=== PATIENT | male | born 1960 | race Two or more races ===

== ENCOUNTER → 2020-10-13 13:15 | Outpatient (BNVA) | payer OTHER, SELFPAY | PROVIDERS: PCP Internal Medicine; Referring Provider Internal Medicine; Visit Provider Internal Medicine Gastroenterology ==

== ENCOUNTER 2020-11-04 09:37 | Day surgery (SDC) | payer OTHER, SELFPAY ==
[2020-11-04 09:42] VITALS: BP 139/88; PULSE 67; RESP 18; TEMP 36.1; O2SAT 98; BMI 27.8
--- NOTE | 2020-11-04 09:46 | P.HPSUR_ITS ---
Pre-Procedural Eval Section B Chief Complaint: dysphagia Relevant Social History: Other (specify) (THC) Present Medications: see Short Stay Collaborative assessment Medical History: Significant History (hypothyroidism, HTN) History of Previous Operations: Relevant previous surgery/procedure and date(s) Allergies: Allergies Allergy/AdvReac Type Severity Reaction Status Date / Time No Known Allergies Allergy Verified 10/13/20 13:16 Review of Systems Sugical H&P ROS: Negative: Constitution, Cardiovascular, Respiratory, Neurological, Psychiatric, Hem-Onc, Allergic/Immunologic, Gastrointestinal, Genitourinary, Musculoskeletal, Integumentary, Endocrine and Eyes/Ears/Nose/Throat Exam Surgical H&P Exam: Normal: HEENT, Normal: Heart, Normal: Lungs, Normal: Extrem ities, Normal: Abdomen, Normal: Skin and Normal: Neurological Plan Diagnosis/Plan: Unchanged I have reviewed the history and physical and performed a pertinent physical examination on my patient. No changes have occurred unless specified.
--- NOTE | 2020-11-04 10:11 | HO.ANESPROP2 ---
[facility] Active Problems Active Problems: All Active Problems (Updated 11/03/20 @ 13:00 by Beverley Cruz RN) Dysphagia (Acute) Past Medical History Medical History (Updated 11/03/20 @ 13:00 by Beverley Cruz RN) HTN (hypertension) Thyroid disease Family History Family History (Updated 10/13/20 @ 13:21 by Sera Navarro CMA) Father Hx of ovarian cancer Mother Family history of high blood pressure Family history of Alzheimer's disease Surgical History Surgical History (Updated 10/13/20 @ 13:19 by Srea Navarro CMA) History of colonoscopy Hx of endoscopy Social History Social History (Updated 10/13/20 @ 13:21 by Sera Navarro CMA) Alcohol intake: current Alcohol intake frequency: holidays/special occasions only Smoking Status: Never smoker Use of substances other than those prescribed or required for medical reasons: Yes Substance Use Type: Marijuana Substance Use Frequency: Monthly Have you been hit, kicked, punched, or otherwise hurt by someone within the past year? If so, by whom?: No Advance Directives: No Advance Directives Information Provided: Yes Recently lost weight without trying: No Meds Allergies Allergy/AdvReac Type Severity Reaction Status Date / Time No Known Allergies Allergy Verified 10/13/20 13:16 Active Medications: Current Medications Generic Name Dose Route Start Last Admin Trade Name Freq PRN Reason Stop Dose Admin Ondansetron HCl 4 mg 11/04/20 09:45 Ondansetron Hcl 4 Mg/2 Ml Vial IVPUSH ONCE PRN Nausea and Vomiting Home Medications Medication Instructions Recorded Confirmed Last Taken Type amlodipine 5 mg tablet 5 mg PO DAILY 10/13/20 Unknown History levothyroxine 125 mcg tablet 125 mcg PO DAILY 10/13/20 Unknown History lisinopril 5 mg tablet 5 mg PO DAILY 10/13/20 Unknown History omeprazole 20 mg capsule,delayed 20 mg PO DAILY 10/13/20 Unknown History release Exam Exam Date and Time: November 04, 2020 1011 Height,Weight and Vital Signs: Height 5 ft 11 in Weight 90.718 kg Last Vital Signs Temp 97 F 11/04/20 09:42 Pulse 67 11/04/20 09:42 Resp 18 11/04/20 09:42 BP 139/88 11/04/20 09:42 Pulse Ox 98 11/04/20 09:42 Airway Mallampati Class: II (Missing 2 pn the side) TM Dist: >3cm Neck ROM: Full Heart: RRR Lungs: CTA BL Assessment and Plan Assessment Anesthesia Assessment: Anesthesia Plan Discussed and Chart Reviewed Final Anesthetic Review NPO: Yes ASA Class: II Final Preanesthetic Review: No Changes in Pt Med Stat and Consent Obtained/Reviewed Patient Risk: Intermediate Procedure Risk: Intermediate Anesthetic Plan Anesthetic Plan: MAC: Disposition: Standard PACU
--- NOTE | 2020-11-04 10:39 | PM.OP ---
Brief Operative Note Date of Service: 11/04/20 Pre-op diagnosis: dysphagia Post-op diagnosis: same Procedure: see op note Surgeon: Merced Flores MD Anesthesia: MAC Estimated blood loss (mL): 0 Condition: stable Disposition: PACU
--- NOTE | 2020-11-04 10:39 | W.PM.OPN ---
Operative Note Operative Note Date of Service: 11/04/20 Narrative: Procedure Description: EGD FLEXIBLE TRANSORAL UPPER GASTROINTESTINAL ENDOSCOPY UPPER ENDOSCOPY Consent: Indications for the procedure and potential complications of bleeding, perforation, reaction to medications and missed diagnosis were discussed with the patient and informed consent was obtained. Instrument: Olympus GIF H 190 J mid size upper endoscope Monitoring: Vital signs and clinical assessment, continuous EKG monitoring, Pulse oximetry, Carbon Dioxide monitoring and blood pressure monitoring were done throughout the procedure. Procedure: The patient was placed in the left lateral decubitis position and pre-procedure medications were administered and a bite block was placed. The endoscope was inserted into the mouth and advanced under direct vision to the third part of duodenum. A careful inspection was made as the upper endoscope was withdrawn including a retroflexed examination of the proximal stomach; Findings and interventions are described below. Findings: Larynx:normal Esophagus: GE junction at 40 cm, diaphragm hiatus at 43 cm, Thick fibrous schatzki ring noted at GEJ with some erosive esophagitis, LA grade B. 18 mm balloon used to stretch with disruption noted, balloon then stretched at UES to 15 mm when resistance felt. 3 cm sliding hiatal hernia noted. Bx taken from GEJ, distal and proximal esophagus in separate jars. Stomach: Patchy gastric erythema. Biopsies were obtained. Grade 2 flap valve on retroflexed examination of the cardia. Duodenum: Normal bulb and descending duodenum, Intervention: Biopsies as noted above, balloon dilation Impression/Findings: hiatal hernia esophagitis schatzki ring and stricture PLAN: high dose PPI for 3 months then can titrate down, may need further dilation in future, will send 2 weeks of carafate as well soft diet today and can advance as tolerated tomorrow can take tylenol for pain if needed
[2020-11-04 10:45] VITALS: BP 131/75; PULSE 88; RESP 16; TEMP 36.6; O2SAT 98
[2020-11-04 11:00] VITALS: BP 133/85; PULSE 79; RESP 16; TEMP 36.4; O2SAT 93
--- NOTE | 2020-11-04 12:11 | HO.POSTANES ---
Post Anesthesia Evaluation Post Anesthesia Evaluation Vital Signs: Vital Signs Temp Pulse Resp BP Pulse Ox 11/04/20 11:00 97.5 F 79 16 133/85 93 11/04/20 10:45 97.9 F 88 16 131/75 98 11/04/20 09:42 97 F 67 18 139/88 98 Anesthesia: Monitored Mental Status: Awake Pain Control: Satisfactory Nausea/Vomiting: None Hydration: Adequate Anesthesia-Related Issues: No Anes. Related Issues
== END 2020-11-04 11:40 | disposition home or self-care (01) ==
PROVIDERS: PCP Internal Medicine; Visit Provider Internal Medicine Gastroenterology
PROC: 0DJ08ZZ Inspection of Upper Intestinal Tract, Via Natural or Artificial Opening Endoscopic (ICD-10-PCS; CPT 43235; principal; 2020-11-04 10:50)
DX: K22.2 Esophageal obstruction (principal); K22.10 Ulcer of esophagus without bleeding; K44.9 Diaphragmatic hernia without obstruction or gangrene; I10 Essential (primary) hypertension; Z79.899 Other long term (current) drug therapy
CPT/HCPCS: 43249; 43239; 88305; 88342; C1726

== ENCOUNTER → 2020-12-29 10:35 | Outpatient (BNVA) | payer OTHER, SELFPAY | PROVIDERS: PCP Internal Medicine; Visit Provider Internal Medicine Gastroenterology ==

== ENCOUNTER → 2021-04-09 08:59 | Outpatient (BNVA) | payer OTHER, SELFPAY | PROVIDERS: PCP Internal Medicine; Referring Provider Internal Medicine; Visit Provider Surgery ==

== ENCOUNTER 2021-04-19 09:08 | Day surgery (SDC) | payer OTHER, SELFPAY ==
--- NOTE | 2021-04-16 09:11 | P.CONAN_ITS ---
Documented by User: Alycia Mccracken 04/16/21 09:13 HPI - Anesthesia Eval Consult details Narrative: 60yo M for Right Hernia Repair Inguinal and Excision of Groin Lipoma PMFSH Active Problems Active Problems: All Active Problems (Updated 04/09/21 @ 10:33 by Karel Beavers MD) Right inguinal hernia (Acute) Dysphagia (Acute) Past Medical History Medical History (Updated 04/09/21 @ 10:33 by Karel Beavers MD) HTN (hypertension) Thyroid disease Family History Family History (Updated 04/09/21 @ 09:16 by DAMIÁN Layne) Father Throat cancer Tongue cancer Mother Family history of high blood pressure Family history of Alzheimer's disease Surgical History Surgical History (Updated 04/09/21 @ 09:15 by DAMIÁN Layne) History of bilateral knee arthroplasty History of colonoscopy Hx of endoscopy Social History Social History (Updated 04/09/21 @ 09:16 by DAMIÁN Layne) Alcohol intake: current Alcohol intake frequency: holidays/special occasions only Patient Tobacco Use Status: Former Tobacco user Tobacco use type: Cigarette Smoked in Last 30 Days: No Use of substances other than those prescribed or required for medical reasons: Yes Substance Use Type: Marijuana Are you DNR?: No Advance Directives: No Advance Directives Information Provided: Yes Recently lost weight without trying: No Nutrition Risks: No Nutritional Risk Meds Allergies Allergy/AdvReac Type Severity Reaction Status Date / Time No Known Allergies Allergy Verified 12/29/20 10:35 Home Medications Medication Instructions Recorded Confirmed Last Taken Type amlodipine 5 mg tablet 5 mg PO DAILY 10/13/20 04/09/21 Unknown History levothyroxine 125 mcg tablet 125 mcg PO DAILY 10/13/20 04/09/21 Unknown History lisinopril 5 mg tablet 5 mg PO DAILY 10/13/20 04/09/21 Unknown History diclofenac sodium 50 mg mg PO 12/29/20 04/09/21 Unknown History tablet,delayed release Exam Exam Date and Time: April 16, 2021 0911 Assessment and Plan Assessment Anesthesia Assessment: Chart Reviewed Documented by User: Mina Bansal MD 04/19/21 11:21 [facility] Past Medical History Medical History (Updated 04/09/21 @ 10:33 by Karel Beavers MD) HTN (hypertension) Thyroid disease Family History Family History (Updated 04/09/21 @ 09:16 by DAMIÁN Layne) Father Throat cancer Tongue cancer Mother Family history of high blood pressure Family history of Alzheimer's disease Surgical History Surgical History (Updated 04/09/21 @ 09:15 by DAMIÁN Layne) History of bilateral knee arthroplasty History of colonoscopy Hx of endoscopy History of Problems with Anesthesia: No Social History Social History (Updated 04/09/21 @ 09:16 by DAMIÁN Layne) Alcohol intake: current Alcohol intake frequency: holidays/special occasions only Patient Tobacco Use Status: Former Tobacco user Tobacco use type: Cigarette Smoked in Last 30 Days: No Use of substances other than those prescribed or required for medical reasons: Yes Substance Use Type: Marijuana Are you DNR?: No Advance Directives: No Advance Directives Information Provided: Yes Recently lost weight without trying: No Nutrition Risks: No Nutritional Risk Meds Allergies Allergy/AdvReac Type Severity Reaction Status Date / Time No Known Allergies Allergy Verified 12/29/20 10:35 Home Medications Medication Instructions Recorded Confirmed Last Taken Type amlodipine 5 mg tablet 5 mg PO DAILY 10/13/20 04/09/21 Unknown History levothyroxine 125 mcg tablet 125 mcg PO DAILY 10/13/20 04/09/21 Unknown History lisinopril 5 mg tablet 5 mg PO DAILY 10/13/20 04/09/21 Unknown History diclofenac sodium 50 mg mg PO 12/29/20 04/09/21 Unknown History tablet,delayed release Exam Airway Mallampati Class: I TM Dist: >3cm Neck ROM: Full Loose/Missing/Broken Teeth: No Heart: ok Lungs: ok Assessment and Plan Assessment Anesthesia Assessment: Anesthesia Plan Discussed and Chart Reviewed Final Anesthetic Review NPO: Yes ASA Class: II Final Preanesthetic Review: No Changes in Pt Med Stat, Meds/Allgs Chart Reviewed, Consent Obtained/Reviewed and Anes Risks/Benef Reviewed Patient Risk: Low Procedure Risk: Low Anesthetic Plan Anesthetic Plan: GA and Agree w/ Assess. and Plan Disposition: Standard PACU
[2021-04-19] VITALS (9 sets, daily range): BP systolic 94–141; BP diastolic 44–89; PULSE 61–76; RESP 14–17; TEMP 36.2–36.5; O2SAT 95–99; BMI 28.4
[2021-04-19] MEDS: Lactated Ringers 1,000 ML 50 ML IVCONT (10:11)
--- NOTE | 2021-04-19 11:23 | MHC.SHP ---
Pre-Procedural Eval Section A Date of Service: 04/19/21 The patient is an INPATIENT: No Changes since office visit: Yes Patient answered all questions; No Cold of Flu in the past 2 weeks, No New Medical Problems and No Changes in Medication The History & Physical has been completed within 30 days and I have reviewed it.: Yes Section B Chief Complaint: Benign lipomatous neoplasm, Right inguinal hernia Allergies: Allergies Allergy/AdvReac Type Severity Reaction Status Date / Time No Known Allergies Allergy Verified 12/29/20 10:35 Plan Diagnosis/Plan: Unchanged I have reviewed the history and physical and performed a pertinent physical examination on my patient. No changes have occurred unless specified.
--- NOTE | 2021-04-19 12:37 | W.PM.OPN ---
Operative Note Operative Note Date of Service: 04/19/21 Narrative: Preoperative diagnosis: Right inguinal hernia, large right groin lipoma Postoperative diagnosis: Same Procedure: Repair of right inguinal hernia, excision of large right groin lipoma Surgeon: Karel Beavers MD Fiber Optics Engineer: Carlie Galdamez PA-C Anesthesia: General LMA Indications for procedure: 60-year-old male patient presenting with a painful lump in the right groin which increases in size with lifting and straining. He has associated gurgling when the lump is extended. He is able to reduce the lump with light pressure. On examination there is a reducible right inguinal hernia which increases in size with Valsalva maneuvers. There is some tenderness to palpation. Just below this is a large soft tissue mass in the upper right leg just below the groin. This is soft and mobile within the subcutaneous tissue and is suggestive of a large lipoma measuring at least 12 cm in diameter. Operative findings:. Patient was found to have an indirect right inguinal hernia without evidence of incarceration. This was repaired using a large PHS mesh. In addition the patient had a large lipoma in the right upper extremity extending into the right groin measuring at least 12 cm in diameter. Specimen: Hernia sac, lipoma right groin Estimated blood loss: 10 mL Complications: None Procedure details: Patient was brought to the OR and placed in a supine position. After administering general anesthesia the patient's abdomen was prepped with ChloraPrep and draped in a sterile fashion. A surgical time-out was called the consent confirmed. Patient received preoperative antibiotics and Venodyne boots were in place. Local anesthesia consisting of 0.5% Sensorcaine with epinephrine was infiltrated over the right inguinal ligament. Incision was then made in oblique fashion over the inguinal ligament. This carried out through subcutaneous tissue past Juan's fashion up to the external oblique aponeurosis. Additional local was infiltrated below the external oblique aponeurosis. This was then incised with a scalpel wide with the Metzenbaum scissors. Spermatic cord was then dissected free from the surrounding inguinal canal and retracted using a Derrick drain. The floor of the inguinal canal was examined and no direct hernia was identified. Fibers of the cremasteric muscle were then and an indirect sac was identified. This was dissected down to the internal ring. The sac was then opened and the contents reduced. The sac was then closed using a 0 Polysorb suture and excise above this. This was sent to the specimen. The sac was then reduced into the abdominal cavity and plicated to the internal oblique aponeurosis using the same suture with a free needle. A preperitoneal space was then created through the internal ring using blunt dissection and an open Ray-Omar sponge. A large PHS mesh was then obtained. The circular underlay was placed into the preperitoneal space and deployed. The overlay was then secured to the pubic tubercle, conjoined tendon, and shelving edge of the inguinal ligament using interrupted 0 Polysorb sutures. A slit was made in the mesh and the mesh were wrapped around the spermatic cord at the internal ring. This was then secured to the shelving edge of the inguinal ligament using the 0 Polysorb suture. This was felt to be loose enough to allow the tip of an index finger to pass. Wounds were checked for hemostasis. Attention was then directed to the right upper thigh or a large lipoma was identified as noted above. Incision was made directly over the lipoma carried out through subcutaneous tissue up to the lipoma. Combination of sharp and blunt dissection was then you to dissect the large lipoma from the surrounding subcutaneous tissue. An extension was noted to extend above the inguinal crease into the right groin. The entire lipoma measured approximately 12 cm in diameter. This was sent to pathology for examination. Wounds were irrigated with saline solution and suctioned dry. External oblique aponeurosis was then closed using a running 2 0 Polysorb suture. Juan's fascia and dermis reapproximated using interrupted 3-0 Polysorb sutures. Skin was then closed using a running subcuticular 4-0 Polysorb suture. Steri-Strips 2 x 2 gauze and Tegaderm were then applied. The patient tolerated the procedure well. Sponge, instrument, needle counts reported as correct. Patient was transferred to PACU in stable condition.
[2021-04-19] MEDS: Acetaminophen 325 MG TABLET 650 MG PO (12:58)
[2021-04-19] MEDS: oxyCODONE HCl Immed Release 5 MG TABLET 10 MG PO (12:59)
== END 2021-04-19 12:45 | disposition home or self-care (01) ==
PROVIDERS: PCP Internal Medicine; Visit Provider Surgery
PROC: (CPT 49505; principal; 2021-04-19 10:40)
DX: K40.90 Unilateral inguinal hernia, without obstruction or gangrene, not specified as recurrent (principal); D17.23 Benign lipomatous neoplasm of skin and subcutaneous tissue of right leg; I10 Essential (primary) hypertension; Z87.891 Personal history of nicotine dependence; F12.90 Cannabis use, unspecified, uncomplicated; Z79.899 Other long term (current) drug therapy
CPT/HCPCS: 49505; 27337; 88302; 88304; C1781; J0690; J1100; J1885; J2405; J3010

== ENCOUNTER → 2021-04-27 13:49 | Outpatient (BNVA) | payer OTHER, SELFPAY | PROVIDERS: PCP Internal Medicine; Referring Provider Internal Medicine; Visit Provider Surgery ==

== ENCOUNTER → 2021-05-11 14:53 | Outpatient (BNVA) | payer OTHER, SELFPAY | PROVIDERS: PCP Internal Medicine; Visit Provider Surgery ==

== ENCOUNTER 2021-06-15 09:50 | Outpatient (REF) | payer OTHER, SELFPAY ==
[2021-06-15 10:40] LABS: MANUAL DIFF FLAG NO
[2021-06-15 10:53] LABS: Basophils Absolute Auto 0.1 X10*3/uL (0.0-0.2); Basophils Percent Auto 0.7 % (0-2); Eosinophils Absolute Auto 0.2 X10*3/uL (0.0-0.4); Eosinophils Percent Auto 2.4 % (0-4); Hematocrit 48.2 % (42-52); Hemoglobin 15.5 g/dl (14.0-18.0); Imm Gran Abs Auto 0.03 X10*3/uL (0.00-0.03); Imm Gran Pct Auto 0.4 % (0.0-0.4); Lymphocytes Absolute Auto 1.7 X10*3/uL (1.2-4.9); Lymphocytes Percent Auto 23.9 % (20-40); Mean Corpuscular HGB Conc 32.2 g/dl (31.0-36.0); Mean Corpuscular Hemoglobin 29.2 pg (27.0-33.0); Mean Corpuscular Volume 90.9 fL (80-98); Mean Platelet Volume 9.9 fL (9.4-12.4); Monocytes Absolute Auto 0.7 X10*3/uL (0.1-1.2); Neutrophils Absolute Auto 4.4 X10*3/uL (2.0-8.3); Neutrophils Percent Auto 62.6 % (45-73); Platelet Count 309 X10*3/uL (160-400); Red Cell Distribution Width 13.5 % (11.0-16.0)
[2021-06-15 11:10] LABS: Alanine Aminotransferase 20 U/L (0-40); Albumin Level 4.4 g/dL (3.5-5.0); Alkaline Phosphatase 86 U/L (39-117); Anion Gap 12 (12-20); Aspartate Amino Transferase 18 U/L (5-37); Blood Urea Nitrogen 20 mg/dL (9-16); Calcium 9.7 mg/dL (8.4-10.2); Carbon Dioxide 27 mmol/L (22-29); Chloride 106 mmol/L (96-108); Cholesterol 163 mg/dL; Estimated Glomerular Filt Rate > 60; Glucose Fasting 92 mg/dL (60-99); HDL Cholesterol 39 mg/dL; LDL Cholesterol Calculated 110 mg/dl; Potassium 4.9 mmol/L (3.3-5.1); Sodium 140 mmol/L (135-145); Total Protein 7.6 g/dL (6.5-8.0); Triglycerides 73 mg/dL
[2021-06-15 11:30] LABS: Free T4 (Free Thyroxine) 1.11 ng/dL (0.71-1.85); Prostate Specific Antigen 0.47 ng/mL (<0.05-4.0); Vitamin D 25-OH Total 29.8 ng/mL (>30)
[2021-06-15 11:52] LABS: Appearance Urine CLEAR; Color Urine YELLOW; Glucose Urine UA NEG (NEG); Leukocyte Esterase Urine NEG (NEG); Nitrite Urine NEG (NEG); PH 6.5 (5.0-8.0); Urine Blood NEG (NEG); Urine Ketones NEG (NEG); Urine Protein NEG (NEG-TRACE)
== END 2021-06-15 09:51 | disposition home or self-care (01) ==
LOC: HO.LAB 09:50
PROVIDERS: PCP Internal Medicine; Visit Provider Internal Medicine
DX: Z12.5 Encounter for screening for malignant neoplasm of prostate (principal); E78.00 Pure hypercholesterolemia, unspecified; E03.9 Hypothyroidism, unspecified; I10 Essential (primary) hypertension; E55.9 Vitamin D deficiency, unspecified; N40.0 Benign prostatic hyperplasia without lower urinary tract symptoms
CPT/HCPCS: 36415; 80053; 80061; 81003; 82306; 84153; 84439; 84443; 85025

== ENCOUNTER → 2021-06-29 13:48 | Outpatient (BNVA) | payer OTHER, SELFPAY | PROVIDERS: PCP Internal Medicine; Visit Provider Nurse Practitioner Family ==

== ENCOUNTER → 2021-07-06 11:32 | Outpatient (BNVA) | payer OTHER, SELFPAY | PROVIDERS: PCP Internal Medicine; Referring Provider Internal Medicine; Visit Provider Internal Medicine Gastroenterology ==

== ENCOUNTER → 2021-07-07 14:09 | Outpatient (BNVA) | payer OTHER, SELFPAY | PROVIDERS: PCP Internal Medicine; Visit Provider Nurse Practitioner Family ==

== ENCOUNTER 2021-08-03 06:27 | Outpatient (REF) | payer OTHER, SELFPAY ==
--- NOTE | ~2021-08-03 | FL_ITS ---
EXAMINATION: XR FLUOROSCOPY WITH IMAGES CLINICAL INFORMATION: History of pain, sacrococcygeal disorder. COMPARISON: None. TECHNIQUE: Fluoroscopy performed by Dr. Clark. Fluoroscopy time: 0.1 minutes DAP: 1.07 Gycm2 Images: 1 fluoro image is saved. FL/FL guidance in treatment room FINDINGS AND IMPRESSION: Fluoroscopic imaging guidance was needed. The tip of a needle overlies the inferior right sacroiliac joint and there has been injection of iodinated contrast into the joint. Please refer to the procedure report.
== END 2021-08-03 06:28 | disposition home or self-care (01) ==
LOC: HO.RADIR 06:27
PROVIDERS: Visit Provider Anesthesiology
DX: M53.3 Sacrococcygeal disorders, not elsewhere classified (principal)
CPT/HCPCS: Q9967

== ENCOUNTER → 2021-08-10 09:12 | Outpatient (BNVA) | payer OTHER, SELFPAY | PROVIDERS: PCP Internal Medicine; Visit Provider Nurse Practitioner Family ==

== ENCOUNTER → 2021-11-03 10:36 | Outpatient (BNVA) | payer OTHER, SELFPAY | PROVIDERS: PCP Internal Medicine; Visit Provider Nurse Practitioner Family ==

== ENCOUNTER 2021-12-28 10:30 | Outpatient (RCR) | payer OTHER, SELFPAY ==
--- NOTE | 2021-12-21 13:11 | MHC.PT.EP ---
[facility] [place] Office [place] Office [place] Office [address] [place] [address] [phone] F: [phone] F: [phone] F: [phone] F: [phone] Physical Therapy Plan of Care Date of Evaluation: 12/21/21 Date of Surgery: Diagnosis: vertigo Assessment: The patient arrived reporting dizziness with position change. He was positive for positional vertigo on the left side. His left Posterior canal was indicated for BPPV. He had upbeating torsional nystagmus with latency. He is a good candidate for skilled PT for Vestibular Rehabilitation. I will assess his balance after his BPPV is resolved. Frequency and Duration: The patient will be seen 2x/week x 4 weeks. Short Term Goals: 1. The patient to be able to negotiate community obstacles such as curbs, ramps and open spaces without LOB for 100 feet. 2. For the patient to be able to functionally move in all planes and directions without provocation of dizziness to show return to PLOF. 3. Pt to be negative for nystagmus in all diagnostic positions for BPPV to facilitate improved functional movements. Hand Flatwork Finisher Goals: 1. For the patient to be negative for nystagmus or reports of vertigo in all diagnostic positions bilaterally to resolution of BPPV in 4 weeks. 2. For the patient to be able to functionally move in all planes and directions without provocation of dizziness to show return to PLOF. 3.For the patient to be educated on symptoms and indications to return to therapy when needed in 4 weeks. Treatment Plan: Modalities to reduce pain, spasms and effusion. Manual therapy to restore motion and function. Therapeutic exercise to improve strength and flexibility. Neuromuscular re-education for posture and balance. Therapeutic activities to return to functional activities of daily living. Electronically signed by: Krissy Davenport PT DPT Please sign and return to therapist. Thank you for your referral.
--- NOTE | 2021-12-28 10:59 | MHC.PT.DC ---
[facility] [place] Office [place] Office [place] Office [address] [place] [address] [phone] F: [phone] F: [phone] F: [phone] F: [phone] Physical Therapy Discharge Report Diagnosis: vertigo Date of Surgery: Date of Evaluation: 12/21/21 Date of Discharge: 12/28/21 Treatments to Date: 2 Cancellations to Date: No Shows to Date: Discharge Status: Achieved Goals Improved Function Independent with HEP Discharge Summary: Pt was negative for BPPV bilaterally. Pt had a normal VOR, and pt had normal balance. Electronically signed by: Krissy Davenport PT DPT Please sign and return to therapist. Thank you for your referral.
== END 2022-04-01 10:51 | disposition home or self-care (01) ==
LOC: HO.PT 10:30
PROVIDERS: PCP Internal Medicine; Visit Provider Otolaryngology
DX: H81.10 Benign paroxysmal vertigo, unspecified ear (principal)
CPT/HCPCS: 95992; 97112; 97162

== ENCOUNTER 2022-03-10 06:28 | Outpatient (REF) | payer OTHER, SELFPAY ==
--- NOTE | ~2022-03-10 | XR_ITS ---
EXAMINATION: XR KNEES, STANDING AP XR KNEE, RIGHT CLINICAL INFORMATION: Knee pain COMPARISON: Radiographs right knee 09/24/2018. TECHNIQUE: Standing AP view of both knees is performed along with lateral and axial patella views of the right knee. FINDINGS: Right: No fracture, dislocation, destructive process, or definite effusion. Hoffa's fat pad appears normal. Normal bony mineralization. Moderate narrowing medial knee joint compartment is present with marginal osteophytes medial femoral condyle, medial tibial plateau, and small central osteophyte medial femoral condyle. No erosive change or chondrocalcinosis. Mild narrowing lateral patellofemoral joint. There is spurring at the quadriceps insertion patella. Left: Normal bony mineralization. No fracture or dislocation or destructive process. Mild narrowing medial compartment with borderline central osteophyte medial femoral condyle. No erosive change or chondrocalcinosis. XR/XR knee RT 2V IMPRESSION: Right: -Moderate narrowing medial knee joint compartment with mild osteophytes. No erosive change. -Narrowing lateral patellofemoral joint. Spurring quadriceps insertion patella. Left: -Mild narrowing medial compartment. No erosive change.
--- NOTE | ~2022-03-10 | XR_ITS ---
EXAMINATION: XR KNEES, STANDING AP XR KNEE, RIGHT CLINICAL INFORMATION: Knee pain COMPARISON: Radiographs right knee 09/24/2018. TECHNIQUE: Standing AP view of both knees is performed along with lateral and axial patella views of the right knee. FINDINGS: Right: No fracture, dislocation, destructive process, or definite effusion. Hoffa's fat pad appears normal. Normal bony mineralization. Moderate narrowing medial knee joint compartment is present with marginal osteophytes medial femoral condyle, medial tibial plateau, and small central osteophyte medial femoral condyle. No erosive change or chondrocalcinosis. Mild narrowing lateral patellofemoral joint. There is spurring at the quadriceps insertion patella. Left: Normal bony mineralization. No fracture or dislocation or destructive process. Mild narrowing medial compartment with borderline central osteophyte medial femoral condyle. No erosive change or chondrocalcinosis. XR/XR knee standing BI IMPRESSION: Right: -Moderate narrowing medial knee joint compartment with mild osteophytes. No erosive change. -Narrowing lateral patellofemoral joint. Spurring quadriceps insertion patella. Left: -Mild narrowing medial compartment. No erosive change.
== END 2022-03-10 06:29 | disposition home or self-care (01) ==
LOC: HO.HOSX 06:28
PROVIDERS: Visit Provider Orthopaedic Surgery
DX: M25.569 Pain in unspecified knee (principal)
CPT/HCPCS: 73560; 73565

== ENCOUNTER 2022-05-19 10:03 | Outpatient (REF) | payer OTHER, SELFPAY ==
[2022-05-19 10:18] LABS: MANUAL DIFF FLAG NO
[2022-05-19 10:46] LABS: Basophils Absolute Auto 0.1 X10*3/uL (0.0-0.2); Basophils Percent Auto 0.7 % (0-2); Eosinophils Absolute Auto 0.2 X10*3/uL (0.0-0.4); Eosinophils Percent Auto 2.5 % (0-4); Hematocrit 47.7 % (42.0-52.0); Hemoglobin 15.7 g/dl (14.0-18.0); Imm Gran Abs Auto 0.03 X10*3/uL (0.00-0.03); Imm Gran Pct Auto 0.4 % (0.0-0.4); Lymphocytes Absolute Auto 2.1 X10*3/uL (1.2-4.9); Lymphocytes Percent Auto 26.8 % (20-40); Mean Corpuscular HGB Conc 32.9 g/dl (31.0-36.0); Mean Corpuscular Hemoglobin 29.5 pg (27.0-33.0); Mean Corpuscular Volume 89.5 fL (80.0-98.0); Mean Platelet Volume 9.8 fL (9.4-12.4); Monocytes Absolute Auto 0.7 X10*3/uL (0.1-1.2); Monocytes Percent Auto 9.3 % (2-11); Neutrophils Absolute Auto 4.6 x10*3/uL (2.0-8.3); Neutrophils Percent Auto 60.3 % (45-73); Platelet Count 286 X10*3/uL (160-400); Red Blood Count 5.33 X10*6/uL (4.60-5.80); Red Cell Distribution Width 13.7 % (11.0-16.0); White Blood Count 7.6 X10*3/uL (4.8-10.8)
[2022-05-19 11:13] LABS: Alanine Aminotransferase 14 U/L (0-40); Albumin Level 4.2 g/dL (3.5-5.0); Alkaline Phosphatase 79 U/L (39-117); Anion Gap 14 (12-20); Aspartate Amino Transferase 16 U/L (5-37); Bilirubin Total 0.6 mg/dL (0.0-1.0); Blood Urea Nitrogen 19 mg/dL (9-16); Calcium 9.1 mg/dL (8.4-10.2); Carbon Dioxide 26 mmol/L (22-29); Chloride 105 mmol/L (96-108); Cholesterol 168 mg/dL; Estimated Glomerular Filt Rate > 60; Glucose Fasting 91 mg/dL (60-99); HDL Cholesterol 42 mg/dL; LDL Cholesterol Calculated 112 mg/dl; Potassium 4.4 mmol/L (3.3-5.1); Sodium 141 mmol/L (135-145); Total Protein 7.4 g/dL (6.5-8.0); Triglycerides 72 mg/dL
[2022-05-19 11:35] LABS: Prostate Specific Antigen 0.78 ng/mL (<0.05-4.0)
[2022-05-19 16:23] LABS: Appearance Urine Clear; Color Urine Yellow; Glucose Urine UA Negative (Negative); Leukocyte Esterase Urine Negative (Negative); Nitrite Urine Negative (Negative); Specific Gravity - Urine 1.015 (1.005-1.025); Urine Blood Negative (Negative); Urine Ketones Negative (Negative); Urine Protein Negative (Neg-Trace)
== END 2022-05-19 10:04 | disposition home or self-care (01) ==
LOC: HO.LAB 10:03
PROVIDERS: PCP Internal Medicine; Visit Provider Internal Medicine
DX: Z00.00 Encounter for general adult medical examination without abnormal findings (principal); Z12.5 Encounter for screening for malignant neoplasm of prostate; I10 Essential (primary) hypertension; E78.00 Pure hypercholesterolemia, unspecified; E03.9 Hypothyroidism, unspecified; E55.9 Vitamin D deficiency, unspecified; N40.0 Benign prostatic hyperplasia without lower urinary tract symptoms
CPT/HCPCS: 36415; 80053; 80061; 81003; 82306; 84153; 84439; 84443; 85025

== ENCOUNTER 2022-11-24 07:58 | Day surgery (SDC) | payer OTHER, SELFPAY ==
--- NOTE | 2022-11-23 13:42 | HO.ANESPROP2 ---
Documented by User: Alycia Mccracken NP 11/23/22 13:44 HPI - Anesthesia Eval Consult details Narrative: 62yo M for Upper Endoscopy with Balloon Dilitation PMFSH Active Problems Active Problems: All Active Problems (Updated 07/11/22 @ 01:08 by Branden Recinos MD) Skin lesions (Acute) History of arthroscopy of both knees (Acute) Osteoarthritis of right knee (Acute) Colon cancer screening (Acute) Annual physical exam (Acute) Right knee DJD (Acute) Benign paroxysmal vertigo (Acute) Erectile dysfunction (Acute) Sacroiliac joint pain (Acute) Overweight (BMI 25.0-29.9) (Acute) Anxiety (Acute) Erosive esophagitis (Acute) Insomnia (Acute) Lumbar degenerative disc disease (Acute) Obstructive sleep apnea (Acute) Acquired hypothyroidism (Acute) Benign essential hypertension (Acute) Right inguinal hernia (Acute) Dysphagia (Acute) Past Medical History Medical History Acquired hypothyroidism Anxiety Benign essential hypertension Erosive esophagitis HTN (hypertension) Insomnia Lumbar degenerative disc disease Obstructive sleep apnea Overweight (BMI 25.0-29.9) Thyroid disease Family History Family History Father Throat cancer Tongue cancer Mother Family history of high blood pressure Family history of Alzheimer's disease Surgical History Surgical History History of bilateral knee arthroplasty History of colonoscopy History of endoscopy Hx of endoscopy S/P right inguinal hernia repair (04/19/21) History of Problems with Anesthesia: No Social History Social History Housing: Apartment Alcohol intake: current Alcohol intake frequency: holidays/special occasions only Patient Tobacco Use Status: Former Tobacco user Quit Date: 20 years ago Tobacco use type: Cigarette e-Cigarette/Vaping Use: Never Used Second Hand Smoke Exposure: Yes Use of substances other than those prescribed or required for medical reasons: Yes Substance Use Type: Marijuana Are you DNR?: No Advance Directives: No Advance Directives Information Provided: Yes service: No Current occupational status: employed Cognitive needs: No Hearing needs: No Vision needs: Yes Meds Allergies Allergy/AdvReac Type Severity Reaction Status Date / Time No Known Allergies Allergy Verified 11/23/22 13:40 Home Medications Medication Instructions Recorded Confirmed Last Taken Type diclofenac sodium 50 mg 50 mg PO BID PRN pain 12/16/21 11/24/22 Unknown History tablet,delayed release Exam Exam Date and Time: November 23, 2022 1342 Pertinent Lab Results Pertinent Lab Results: Laboratory Tests 05/19/22 05/19/22 10:15 10:15 WBC 7.6 Hgb 15.7 Hct 47.7 Plt Count 286 Sodium 141 Potassium 4.4 Chloride 105 Carbon Dioxide 26 BUN 19 H Creatinine 0.99 Assessment and Plan Assessment Anesthesia Assessment: Chart Reviewed Final Anesthetic Review History of Problems with Anesthesia: No Documented by User: Destiny Deutsch MD 11/24/22 08:47 HPI - Anesthesia Eval Consult details Narrative: 62yo M for Upper Endoscopy with Balloon Dilitation last smoked pot yesterday. history of daily use PMFSH Past Medical History Medical History Acquired hypothyroidism Anxiety Benign essential hypertension Erosive esophagitis HTN (hypertension) Insomnia Lumbar degenerative disc disease Obstructive sleep apnea Overweight (BMI 25.0-29.9) Thyroid disease Family History Family History Father Throat cancer Tongue cancer Mother Family history of high blood pressure Family history of Alzheimer's disease Family history of problems with anesthesia: No Surgical History Surgical History History of bilateral knee arthroplasty History of colonoscopy History of endoscopy Hx of endoscopy S/P right inguinal hernia repair (04/19/21) Social History Social History Housing: Apartment Alcohol intake: current Alcohol intake frequency: holidays/special occasions only Patient Tobacco Use Status: Former Tobacco user Quit Date: 20 years ago Tobacco use type: Cigarette e-Cigarette/Vaping Use: Never Used Second Hand Smoke Exposure: Yes Use of substances other than those prescribed or required for medical reasons: Yes Substance Use Type: Marijuana Are you DNR?: No Advance Directives: No Advance Directives Information Provided: Yes service: No Current occupational status: employed Cognitive needs: No Hearing needs: No Vision needs: Yes Meds Allergies Allergy/AdvReac Type Severity Reaction Status Date / Time No Known Allergies Allergy Verified 11/23/22 13:40 Home Medications Medication Instructions Recorded Confirmed Last Taken Type diclofenac sodium 50 mg 50 mg PO BID PRN pain 12/16/21 11/24/22 Unknown History tablet,delayed release Exam Airway Mallampati Class: II TM Dist: >3cm Neck ROM: Full Heart: rrr Lungs: cta Assessment and Plan Assessment Anesthesia Assessment: Anesthesia Plan Discussed Final Anesthetic Review Family History of Problems with Anesthesia: No NPO: Yes ASA Class: III Final Preanesthetic Review: No Changes in Pt Med Stat, Meds/Allgs Chart Reviewed, Consent Obtained/Reviewed and Anes Risks/Benef Reviewed Patient Risk: Intermediate Procedure Risk: Low Anesthetic Plan Anesthetic Plan: MAC: Disposition: Standard PACU
[2022-11-24 08:15] VITALS: BP 124/83; PULSE 76; RESP 18; TEMP 36.6; O2SAT 97; BMI 27.8
[2022-11-24 08:22] VITALS: BMI 27.8
[2022-11-24] MEDS: Lactated Ringers 1,000 ML 100 ML IVCONT (08:39)
--- NOTE | 2022-11-24 09:07 | MHC.SHP ---
Pre-Procedural Eval Section A Date of Service: 11/24/22 Section B Chief Complaint: ulcer and dysphagia Relevant Family History (Specify if Yes): No Relevant Social History: Other (specify) (thc) Present Medications: see Short Stay Collaborative assessment Medical History: Significant History (Acquired hypothyroidism Anxiety Benign essential hypertension Erosive esophagitis HTN (hypertension) Insomnia Lumbar degenerative disc disease Obstructive sleep apnea Overweight (BMI 25.0-29.9) Thyroid disease) History of Previous Operations: Relevant previous surgery/procedure and date(s) (History of bilateral knee arthroplasty History of colonoscopy History of endoscopy Hx of endoscopy S/P right inguinal hernia repair (04/19/21)) Allergies: Allergies Allergy/AdvReac Type Severity Reaction Status Date / Time No Known Allergies Allergy Verified 11/23/22 13:40 Review of Systems Sugical H&P ROS: Negative: Constitution, Cardiovascular, Respiratory, Neurological, Psychiatric, Hem-Onc, Allergic/Immunologic, Gastrointestinal, Genitourinary, Musculoskeletal, Integumentary, Endocrine and Eyes/Ears/Nose/Throat Exam Surgical H&P Exam: Normal: HEENT, Normal: Heart, Normal: Lungs, Normal: Extremities, Normal: Abdomen, Normal: Skin and Normal: Neurological Plan Diagnosis/Plan: Unchanged I have reviewed the history and physical and performed a pertinent physical examination on my patient. No changes have occurred unless specified. Time Spent With Patient Time: Total time managing care of this patient today ____ minutes.
--- NOTE | 2022-11-24 09:09 | W.PM.OPN ---
Operative Note Operative Note Date of Service: 11/24/22 Narrative: Procedure Description: EGD Indication: dysphagia Anesthesia: MAC FLEXIBLE TRANSORAL UPPER GASTROINTESTINAL ENDOSCOPY UPPER ENDOSCOPY Consent: Indications for the procedure and potential complications of bleeding, perforation, reaction to medications and missed diagnosis were discussed with the patient and informed consent was obtained. Instrument: Olympus GIF H 190 J mid size upper endoscope Monitoring: Vital signs and clinical assessment, continuous EKG monitoring, Pulse oximetry, Carbon Dioxide monitoring and blood pressure monitoring were done throughout the procedure. Procedure: The patient was placed in the left lateral decubitis position and pre-procedure medications were administered and a bite block was placed. The endoscope was inserted into the mouth and advanced under direct vision to the third part of duodenum. A careful inspection was made as the upper endoscope was withdrawn including a retroflexed examination of the proximal stomach; Findings and interventions are described below. Larynx:normal Esophagus: GE junction at 40? cm, diaphragm hiatus at 44 cm, Thick fibrous schatzki ring noted at GEJ. 18 mm balloon used to stretch with disruption noted, balloon then stretched at UES to 19 mm when resistance felt. 4 cm sliding hiatal hernia noted. Stomach: mild erythema Biopsies were obtained. Grade 2 flap valve on retroflexed examination of the cardia. Duodenum: Normal bulb and descending duodenum, Intervention: balloon dilation Impression/Findings: hiatal hernia esophagitis schatzki ring and stricture PLAN: cont with PPI soft diet today and can advance as tolerated tomorrow can take tylenol for pain if needed, will send magic mouthwash as well
[2022-11-24 09:41] VITALS: BP 105/66; PULSE 72; RESP 18; TEMP 36.6; O2SAT 91
== END 2022-11-24 10:32 | disposition home or self-care (01) ==
PROVIDERS: PCP Internal Medicine; Visit Provider Internal Medicine Gastroenterology
PROC: (CPT 43249; principal; 2022-11-24 09:00)
DX: R13.10 Dysphagia, unspecified (principal); K22.2 Esophageal obstruction; K22.10 Ulcer of esophagus without bleeding; K44.9 Diaphragmatic hernia without obstruction or gangrene; I10 Essential (primary) hypertension; E03.9 Hypothyroidism, unspecified; F41.1 Generalized anxiety disorder; G47.33 Obstructive sleep apnea (adult) (pediatric); Z79.899 Other long term (current) drug therapy; Z87.891 Personal history of nicotine dependence
CPT/HCPCS: 43249; C1726; J3010

== ENCOUNTER → 2023-03-06 09:08 | Outpatient (BNVA) | payer OTHER, SELFPAY | PROVIDERS: PCP Internal Medicine; Visit Provider Internal Medicine Gastroenterology ==

== ENCOUNTER 2023-04-19 12:50 | Outpatient (AMB) | payer OTHER, SELFPAY ==
[2023-04-19 12:51] VITALS: BP 110/76; PULSE 68; O2SAT 76; BMI 27.2
--- NOTE | 2023-04-19 12:51 | MHC.PC.OV ---
Vital Signs 04/19/23 12:51 Height 5 ft 11 in Weight 195 lb 2 oz BMI 27.2 BP 110/76 Blood Pressure Location Lt brachial Position Sitting Pulse 68 Pulse Source Pulse Oximeter Pulse Oximetry (%) 76 L Oxygen Delivery Method Room Air Intake Visit Reasons: PE - due for colonoscopy [employer] Wel[employer] Required: No Accompanied by: Self / Same As Patient Allergies No Known Allergies Allergy (Verified 11/29/23 14:28) Medication List - Last Reconciled 11/29/23 by Branden Recinos MD amlodipine 5 mg PO DAILY ascorbic acid (vitamin C) (Vitamin C) 500 mg PO DAILY cholecalciferol (vitamin D3) 25 mcg PO DAILY diclofenac sodium 50 mg PO Q12H PRN levothyroxine 125 mcg PO DAILY 90 days lisinopril 5 mg PO DAILY 90 days pantoprazole 40 mg PO Q12H sildenafil 50 mg PO DAILY PRN Tobacco use date assessed: 04/19/23 Dental Screening Dental Screen Date: 04/19/23 Did you have a dental visit in the last 12 months?: Yes Did you have a dental problem in the last 6 months where you did not have access to dental care?: No Was dental information given to patient?: Patient has dentist HPI PE - due for colonoscopy HPI Details Patient comes in today for his annual physical examination States that he feels okay S/P EGD with esophageal dilatation with Dr. Flores back in November 2022 - states that he has not had any problems with his swallowing since He denies any headaches or dizziness Denies any chest pains, no SOB No nausea/vomiting, no abdominal pain No change in bowel habits noted Denies any acute urinary symptoms He has a sleep study scheduled for next month on 05/23/2023 States that his last colonoscopy was done sometime around 2015 when patient was still residing in [place] - was reportedly advised then that his procedure came out normal so he is not sure when he is due for his next one He has not been able to get his previously ordered labs done prior to his visit today [facility] Medical History Hiatal hernia Overweight (BMI 25.0-29.9) Anxiety Erosive esophagitis Insomnia Lumbar degenerative disc disease Obstructive sleep apnea Acquired hypothyroidism Benign essential hypertension Thyroid disease HTN (hypertension) Dysphagia Surgical History Hx of arthroscopic knee surgery History of endoscopy S/P right inguinal hernia repair (04/19/21) Hx of endoscopy History of colonoscopy Family History Father Throat cancer Tongue cancer Mother Family history of high blood pressure Family history of Alzheimer's disease Social History Housing: Apartment Alcohol intake: current Alcohol intake frequency: holidays/special occasions only Patient Tobacco Use Status: Former Tobacco user Quit Date: 17 yrs ago Tobacco use type: Cigarette e-Cigarette/Vaping Use: Never Used Second Hand Smoke Exposure: Yes Substance Use Type: Marijuana service: No Current occupational status: employed Cognitive needs: No Hearing needs: No Vision needs: Yes Questionnaire PHQ-9 Over the last 2 weeks, how often have you been bothered by any of the following problems? 1. Little interest or pleasure in doing things: not at all 2. Feeling down, depressed, or hopeless: not at all 3. Trouble falling or staying asleep, or sleeping too much: not at all 4. Feeling tired or having little energy: not at all 5. Poor appetite or overeating: not at all 6. Feeling bad about yourself - or that you are a failure or have let yourself or your family down: not at all 7. Trouble concentrating on things, such as reading the newspaper or watching television: not at all 8. Moving or speaking so slowly that other people could have noticed. Or the opposite - being so fidgety or restless that you have been moving around a lot more than usual: not at all 9. Thoughts that you would be better off or of hurting yourself in some way: not at all Total score: 0 Depression Screening Interpretation: Negative [id number] - PHQ-9 Billing: Yes Source: Developed by Drs. Edwin Fair, Diana Tuttle, Keenan Navarro and colleagues, with an educational chantel from [facility] EHR. Thrive Questionnaire Date Thrive assessed: 04/19/23 I am a: Patient What is your living situation today?: I have a steady place to live Within the past 12 months, did the food you bought not last and you didn't have the money to get more?: Never true Within the past 12 months, did you worry whether your food would run out before you got money to buy more?: Never true Do you have trouble paying for medicines?: No Do you have trouble getting transportation to medical appointments?: No Do you have trouble paying your heating and electricity bill?: No Do you have trouble taking care of your child, family member or friend?: No Do you have trouble with day-to-day activities such as bathing, preparing meals, shopping, managing finances, etc.?: No Are you currently unemployed and looking for a job?: No Are you interested in more education?: No Please select the resources that you would like help with: None Currently or been in a relationship where the following occur: no concerns reported AUDIT C Alcohol Use Questionnaire (AUDIT-C) 1. How often do you have a drink containing alcohol?: Monthly or less 2. How many drinks containing alcohol do you have on a typical day when you are drinking?: 1 or 2 3. How often do you have six or more drinks on one occasion?: Never Total Score: 1 Score Reviewed/Action Taken: Yes TREVIN-7 AMB Questionnaire TREVIN-7 Date TREVIN - 7 assessed: 04/19/23 Feeling nervous, anxious, or on edge: 0 = Not at all Not being able to stop or control worryin = Not at all Worrying too much about different things: 0 = Not at all Trouble relaxin = Not at all Being so restless that it is hard to sit still: 0 = Not at all Becoming easily annoyed or irritable: 0 = Not at all Feeling afraid as if something awful might happen: 0 = Not at all Total TREVIN-7 score (0-4 normal; 5-9 mild; 10-14 moderate; 15-21 severe): 0 Source: Developed by Drs. Edwin Fair, Diana Tuttle, Keenan Navarro and colleagues, with an educational chantel from [facility] EHR. Review of Systems Const Denies chills, Denies fatigue, Denies fever(s), Denies headache(s), Denies malaise and Denies weakness Eyes Denies blurry vision, Denies change in vision, Denies irritation and Denies itchy eyes ENT Denies dysphagia, Denies dizziness, Denies otalgia, Denies headache(s), Denies nasal congestion, Denies neck pain, Denies odynophagia and Denies sore throat Card Denies chest pain, Denies rapid heart rate, Denies irregular heart rhythm, Denies palpitations and Denies dyspnea Resp Denies chest congestion, Denies cough, Denies dyspnea and Denies wheezing GI Denies abdominal pain, Denies bloating, Denies constipation, Denies dysphagia, Denies heartburn, Denies diarrhea, Denies nausea, Denies odynophagia and Denies vomiting Denies hematuria, Denies difficulty urinating, Denies dysuria, Denies urinary frequency and Denies urinary urgency Musc Denies back pain, Denies arthralgias, Denies joint swelling, Denies muscle weakness and Denies neck pain Skin/Breast Denies change in pigmentation, Denies lesions, Denies rash and Denies unusual bruising Neuro Denies dizziness, Denies headache(s), Denies paresthesias and Denies weakness Endo Denies fatigue and Denies palpitations Aller/Immun Denies itchy eyes and Denies wheezing Physical exam (Primary Care) Vital Signs: Last Vital Signs Pulse 68 04/19/23 12:51 BP 110/76 04/19/23 12:51 Pulse Ox 76 L 04/19/23 12:51 Oxygen Delivery Method Room Air 04/19/23 12:51 BMI result Body Mass Index 27.2 Tobacco/Smoking Status: Tobacco use Status Tobacco use date assessed 04/19/23 04/19/23 12:57 Patient Tobacco Use Status Former Tobacco user 04/19/23 12:57 Tobacco use type Cigarette 04/19/23 12:57 e-Cigarette/Vaping Use Never Used 04/19/23 12:57 PHQ-9: PHQ-9 Score PHQ-9: Total score 0 04/19/23 13:21 Depression Screening Interpretation: Negative Thrive Assessment: Date of Thrive Assessment Date Thrive assessed 04/19/23 04/19/23 12:57 Currently or been in a relationship where the following occur: no concerns reported Const General: no acute distress, alert and awake Orientation/consciousness: patient oriented x3 HENMT Head: Yes normocephalic and Yes atraumatic Ears: external ears normal, TM's normal bilaterally and EAC's normal General nose exam: No nasal discharge present Face and sinus: Yes normal facial exam and Yes sinuses nontender Teeth and gingiva: dentition normal Throat: Yes posterior oropharynx normal and Yes tonsils normal (no TP congestion) Eyes Eyelids: Yes eyelids normal Conjunctivae: conjunctivae normal Pupils: Equal, round and reactive pupils present EOM: EOMs intact bilaterally Neck Neck: Yes no lymphadenopathy and Yes supple Thyroid: Thyroid normal Resp Auscultation: clear to auscultation bilaterally, no rales and no wheezes Cardio Rate: regular rate Rhythm: regular rhythm Heart sounds: no murmurs GI Palpation (GI): Soft to palpation, nontender and No hepatosplenomegaly present Auscultation: normal bowel sounds General: Yes no CVA tenderness Back/Spine/Pelvis Back: no CVA tenderness Thoracic/Lumbar Spine: thoracic and lumbar spine normal to inspection Skin Lesions: no lesions Rashes: no rashes Neuro General: patient oriented x3, moves all extremities, no focal motor deficits and CN's II-XI intact bilaterally Cranial nerves: Yes Equal, round and reactive pupils present Cognition (Neuro): normal cognition Gait exam (Neuro): Normal gait present Extrem General: Yes no clubbing, cyanosis or edema Assessment and Plan Assessment & Plan (1) Annual physical exam: Code(s): Z00.00 - Encounter for general adult medical examination without abnormal findings Plan: Check labs - advised that his labs were all ordered previously (updated today) and that he can go and get these done YARY (2) Benign essential hypertension: Code(s): I10 - Essential (primary) hypertension Plan: Reinforced low sodium diet - goal is systolic BP of 120 mm or less Continue Amlodipine 5 mg QD and Lisinopril 5 mg QD (3) Acquired hypothyroidism: Code(s): E03.9 - Hypothyroidism, unspecified Plan: Continue Levothyroxine 125 mcg QD Will recheck his TFTs YARY for follow up (4) Erosive esophagitis: Code(s): K22.10 - Ulcer of esophagus without bleeding Plan: Dietary restrictions reinforced Continue Pantoprazole 40 mg BID Follow up with GI as scheduled (5) Obstructive sleep apnea: Comment: uses cpap Code(s): G47.33 - Obstructive sleep apnea (adult) (pediatric) Plan: Was using his CPAP device when sleeping at night regularly until a few months ago He had a repeat sleep study done sometime in December 2022 at [facility] Follow up with [facility] as scheduled (6) Erectile dysfunction: Code(s): N52.9 - Male erectile dysfunction, unspecified Qualifiers: Erectile dysfunction type: unspecified Qualified Code(s): N52.9 - Male erectile dysfunction, unspecified Plan: Continue Viagra 50 ng QD PRN Per request, will also check his serum testosterone level for further evaluation (7) Osteoarthritis of right knee: Code(s): M17.11 - Unilateral primary osteoarthritis, right knee Qualifiers: Osteoarthritis type: primary Qualified Code(s): M17.11 - Unilateral primary osteoarthritis, right knee Plan: Was seen by [facility] a few months ago and had visco supplementation in the right knee, which he states did not really help much Continues to experience frequent knee pain but states that the pain is mostly manageable lately Right knee x-rays done last year revealed (+) moderate narrowing medial knee joint compartment with mild osteophytes. No erosive changes; (+) narrowing of the lateral patellofemoral joint and spurring of the quadriceps insertion patella Follow up with orthopedics as scheduled (8) Lumbar degenerative disc disease: Code(s): M51.36 - Other intervertebral disc degeneration, lumbar region Plan: Reinforced activity and weight-lifting restrictions Was diagnosed with SI joint dysfunction/syndrome and is currently debating on available treatment options States that his low back pain was relieved temporarily with injections a few months ago Follow up with pain management as scheduled (9) Insomnia: Code(s): G47.00 - Insomnia, unspecified Qualifiers: Insomnia type: unspecified Qualified Code(s): G47.00 - Insomnia, unspecified Plan: Sleep hygiene reinforced Was started on a trial of Mirtazapine a few months ago but could not tolerate Rx - Rx discontinued Continue Zolpidem 10 mg Q HS PRN (10) Overweight (BMI 25.0-29.9): Code(s): E66.3 - Overweight Plan: Reinforced diet/exercise as tolerated/lose weight (11) Colon cancer screening: Code(s): Z12.11 - Encounter for screening for malignant neoplasm of colon Plan: Will refer him to GI for consideration for repeat colonoscopy Plan Follow up in 4 months Orders: Orders Testosterone, Free/Total 04/19/23 R79.89 - Other specified abnormal findings of blood chemistry, Z00.00 - Encounter for general adult medical examination without abnormal findings, R53.83 - Other fatigue Referrals Gastroenterology Referral Z12.11 - Encounter for screening for malignant neoplasm of colon Coding Level of Care Code Est Pt Prev Care 40-64y([id number]) Diagnoses Annual physical exam Z00.00 Benign essential hypertension I10 Acquired hypothyroidism E03.9 Erosive esophagitis K22.10 Obstructive sleep apnea G47.33 Erectile dysfunction, unspecified erectile dysfunction type N52.9 Erectile dysfunction type: unspecified Primary osteoarthritis of right knee M17.11 Osteoarthritis type: primary Lumbar degenerative disc disease M51.36 Insomnia, unspecified type G47.00 Insomnia type: unspecified Overweight (BMI 25.0-29.9) E66.3 Colon cancer screening Z12.11
== END 2023-04-19 13:34 | disposition home or self-care (01) ==
PROVIDERS: Visit Provider Internal Medicine
DX: Z00.00 Encounter for general adult medical examination without abnormal findings (principal); I10 Essential (primary) hypertension; E03.9 Hypothyroidism, unspecified; K22.10 Ulcer of esophagus without bleeding; G47.33 Obstructive sleep apnea (adult) (pediatric); N52.9 Male erectile dysfunction, unspecified; M17.11 Unilateral primary osteoarthritis, right knee; M51.36 Other intervertebral disc degeneration, lumbar region; G47.00 Insomnia, unspecified; E66.3 Overweight; Z12.11 Encounter for screening for malignant neoplasm of colon
CPT/HCPCS: 99499

== ENCOUNTER 2023-08-31 07:18 | Day surgery (SDC) | payer OTHER, SELFPAY ==
[2023-08-29 09:39] VITALS: BMI 27.2
[2023-08-31 07:33] VITALS: BMI 26.8
[2023-08-31 07:37] VITALS: BP 125/82; PULSE 81; RESP 15; TEMP 36.7; O2SAT 95
[2023-08-31] MEDS: Lactated Ringers 1,000 ML 50 ML IVCONT (07:51)
--- NOTE | 2023-08-31 08:06 | HO.ANESPROP2 ---
HPI - Anesthesia Eval Consult details Narrative: Colonic Surveillance [facility] Active Problems Active Problems: All Active Problems (Updated 08/31/23 @ 07:31 by Beverley Cruz RN) Skin lesions (Acute) History of arthroscopy of both knees (Acute) Osteoarthritis of right knee (Acute) Colon cancer screening (Acute) Annual physical exam (Acute) Right knee DJD (Acute) Benign paroxysmal vertigo (Acute) Erectile dysfunction (Acute) Sacroiliac joint pain (Acute) Right inguinal hernia (Acute) Dysphagia (Acute) Overweight (BMI 25.0-29.9) (Acute) Anxiety (Acute) Erosive esophagitis (Acute) Insomnia (Acute) Lumbar degenerative disc disease (Acute) Obstructive sleep apnea (Acute) Acquired hypothyroidism (Acute) Benign essential hypertension (Acute) Past Medical History Medical History Hiatal hernia Overweight (BMI 25.0-29.9) Anxiety Erosive esophagitis Insomnia Lumbar degenerative disc disease Obstructive sleep apnea Acquired hypothyroidism Benign essential hypertension Thyroid disease HTN (hypertension) Dysphagia Family History Family History Father Throat cancer Tongue cancer Mother Family history of high blood pressure Family history of Alzheimer's disease Family history of problems with anesthesia: No Surgical History Surgical History Hx of arthroscopic knee surgery History of endoscopy S/P right inguinal hernia repair (04/19/21) Hx of endoscopy History of colonoscopy History of Problems with Anesthesia: No Social History Social History Housing: Apartment Alcohol intake: current Alcohol intake frequency: holidays/special occasions only Patient Tobacco Use Status: Former Tobacco user Quit Date: 17 yrs ago Tobacco use type: Cigarette e-Cigarette/Vaping Use: Never Used Second Hand Smoke Exposure: Yes Use of substances other than those prescribed or required for medical reasons: Yes Substance Use Type: Marijuana Substance Use Frequency: Occasionally Are you DNR?: No Advance Directives: No Advance Directives Information Provided: Yes service: No Current occupational status: employed Cognitive needs: No Hearing needs: No Vision needs: Yes Meds Allergies Allergy/AdvReac Type Severity Reaction Status Date / Time No Known Allergies Allergy Verified 08/31/23 07:32 Active Medications: Current Medications Lactated Ringer's (Lr) 1,000 mls @ 50 mls/hr IVCONT .Q20H BOOKER Last Admin: 08/31/23 07:51 Dose: 50 mls/hr Home Medications Medication Instructions Recorded Confirmed Last Taken Type ascorbic acid (vitamin C) 500 mg 500 mg PO DAILY 08/31/23 08/31/23 Unknown History tablet (Vitamin C) Exam Height,Weight and Vital Signs: Height 5 ft 11 in Weight 87.18 kg Last Vital Signs Temp 98.1 F 08/31/23 07:37 Pulse 81 08/31/23 07:37 Resp 15 08/31/23 07:37 BP 125/82 08/31/23 07:37 Pulse Ox 95 08/31/23 07:37 O2 Del Method Room Air 08/31/23 07:37 Airway Mallampati Class: III TM Dist: >3cm Neck ROM: Full Loose/Missing/Broken Teeth: No Heart: rrr+s1s2 Lungs: cta b/l Assessment and Plan Assessment Anesthesia Assessment: Anesthesia Plan Discussed and Chart Reviewed Final Anesthetic Review Family History of Problems with Anesthesia: No History of Problems with Anesthesia: No NPO: Yes ASA Class: II Final Preanesthetic Review: No Changes in Pt Med Stat, Meds/Allgs Chart Reviewed, Consent Obtained/Reviewed and Anes Risks/Benef Reviewed Patient Risk: Intermediate Procedure Risk: Intermediate Assessment/Block/Sedation in SS: Assess/Block/Sedation-SS Anesthetic Plan Anesthetic Plan: MAC: and Agree w/ Assess. and Plan Disposition: Standard PACU
--- NOTE | 2023-08-31 08:09 | MHC.SHP ---
Pre-Procedural Eval Section A Date of Service: 08/31/23 Section B Chief Complaint: Encounter for screening for malignant neoplasm of Relevant Family History (Specify if Yes): No Relevant Social History: None Present Medications: see Short Stay Collaborative assessment Medical History: Significant History (Hiatal hernia Overweight (BMI 25.0-29.9) Anxiety Erosive esophagitis Insomnia Lumbar degenerative disc disease Obstructive sleep apnea Acquired hypothyroidism Benign essential hypertension Thyroid disease HTN (hypertension) Dysphagia) History of Previous Operations: Relevant previous surgery/procedure and date(s) (Hx of arthroscopic knee surgery History of endoscopy S/P right inguinal hernia repair (04/19/21) Hx of endoscopy History of colonoscopy) Allergies: Allergies Allergy/AdvReac Type Severity Reaction Status Date / Time No Known Allergies Allergy Verified 08/31/23 07:32 Review of Systems Sugical H&P ROS: Negative: Constitution, Cardiovascular, Respiratory, Neurological, Psychiatric, Hem-Onc, Allergic/Immunologic, Gastrointestinal, Genitourinary, Musculoskeletal, Integumentary, Endocrine and Eyes/Ears/Nose/Throat Exam Surgical H&P Exam: Normal: HEENT, Normal: Heart, Normal: Lungs, Normal: Extremities, Normal: Abdomen, Normal: Skin and Normal: Neurological Plan Diagnosis/Plan: Unchanged I have reviewed the history and physical and performed a pertinent physical examination on my patient. No changes have occurred unless specified. Time Spent With Patient Time: Total time managing care of this patient today ____ minutes.
--- NOTE | 2023-08-31 08:28 | P.OP_ITS ---
Operative Note Operative Note Date of Service: 08/31/23 Narrative: Operative Information Procedure Description: Colonoscopy Indication: screening Anesthesia: MAC COLONOSCOPY Instrument: Olympus variable stiffness pediatric scope 190L Colonoscopy Monitoring: Vital signs and clinical assessment, continuous EKG monitoring, Pulse oximetry, Carbon Dioxide monitoring and blood pressure monitoring were done throughout the procedure. Colon withdrawal time was 12 minutes. Procedure: The patient was placed in the left lateral decubitis position and pre-procedure medications were administered. After a digital rectal examination of the ano-rectum, the video colonoscope was inserted into the rectum and advanced through the colon to the cecum/TI. The colonoscope was slowly withdrawn in a retrograde panoramic fashion and the colon mucosa was carefully examined including a retroflexed view of the rectum. Findings and interventions are described below. Procedure Difficulty: easy Findings: Terminal Ileum-normal Viramontes diverticulosis, right sided retroflexion-no lesions seen Cecum:normal Ascending Colon: normal Transverse Colon -normal Descending Colon:normal Sigmoid Colon: moderate severe diverticulosis Rectum: Retroflexion with small internal hemorrhoids, grade I Anorectum - normal Colon preparation: [place] Bowel Preparation Scale Right colon; 2 Transverse colon: 2 Left colon; 3 (0 = Unprepared colon segment with mucosa not seen due to solid stool that rj ot be cleared. 1 = Portion of mucosa of the colon segment seen, but other areas of the colon segment not well seen due to staining, residual stool and/or opaque liquid. 2 = Minor amount of residual staining, small fragments of stool and/or opaque liquid, but mucosa of colon segment seen well. 3 = Entire mucosa of colon segment seen well with no residual staining, small fragments of stool or opaque liquid) Impression and Post Procedure Diagnosis: internal hemorrhoids diverticular disease Plan: High fiber diet leaflet Avoid straining at stool, epsom salts and sitz bath, anusol supps or cream Repeat Colonoscopy in 10 years or earlier if clinically indicated Above findings were reviewed with the patient and relevant handouts were provided if indicated.
[2023-08-31 08:35] VITALS: BP 99/66; PULSE 75; RESP 20; TEMP 36.4; O2SAT 95
[2023-08-31 08:50] VITALS: BP 112/73; PULSE 73; RESP 20; TEMP 36.4; O2SAT 98
== END 2023-08-31 09:30 | disposition home or self-care (01) ==
PROVIDERS: PCP Internal Medicine; Visit Provider Internal Medicine Gastroenterology
PROC: 0DJD8ZZ Inspection of Lower Intestinal Tract, Via Natural or Artificial Opening Endoscopic (ICD-10-PCS; CPT 45378; principal; 2023-08-31 08:50)
DX: Z12.11 Encounter for screening for malignant neoplasm of colon (principal); K57.30 Diverticulosis of large intestine without perforation or abscess without bleeding; K64.0 First degree hemorrhoids; I10 Essential (primary) hypertension; E03.9 Hypothyroidism, unspecified; G47.33 Obstructive sleep apnea (adult) (pediatric); Z99.89 Dependence on other enabling machines and devices; Z87.891 Personal history of nicotine dependence
CPT/HCPCS: 45378; J2704

== ENCOUNTER → 2023-08-31 07:18 | Outpatient (BNV) | payer OTHER, SELFPAY | PROVIDERS: PCP Internal Medicine; Visit Provider Internal Medicine Gastroenterology | DX: Z12.11 Encounter for screening for malignant neoplasm of colon (principal); K57.30 Diverticulosis of large intestine without perforation or abscess without bleeding; K64.0 First degree hemorrhoids | CPT/HCPCS: 45378 ==

== ENCOUNTER 2023-11-08 07:38 | Outpatient (REF) | payer OTHER, SELFPAY ==
[2023-11-08 07:56] LABS: MANUAL DIFF FLAG NO
[2023-11-08 08:15] LABS: Basophils Absolute Auto 0.1 X10*3/uL (0.0-0.2); Basophils Percent Auto 0.9 % (0-2); Eosinophils Absolute Auto 0.2 X10*3/uL (0.0-0.4); Hemoglobin 16.1 g/dl (14.0-18.0); Imm Gran Abs Auto 0.04 X10*3/uL (0.00-0.03); Imm Gran Pct Auto 0.6 % (0.0-0.4); Lymphocytes Absolute Auto 1.9 X10*3/uL (1.2-4.9); Lymphocytes Percent Auto 27.8 % (20-40); Mean Corpuscular HGB Conc 32.9 g/dl (31.0-36.0); Mean Corpuscular Hemoglobin 30.1 pg (27.0-33.0); Mean Corpuscular Volume 91.6 fL (80.0-98.0); Mean Platelet Volume 9.7 fL (9.4-12.4); Monocytes Absolute Auto 0.5 X10*3/uL (0.1-1.2); Monocytes Percent Auto 7.5 % (2-11); Neutrophils Absolute Auto 4.1 x10*3/uL (2.0-8.3); Neutrophils Percent Auto 60.2 % (45-73); Platelet Count 279 X10*3/uL (160-400); Red Blood Count 5.35 X10*6/uL (4.60-5.80); Red Cell Distribution Width 13.9 % (11.0-16.0); White Blood Count 6.8 X10*3/uL (4.8-10.8)
[2023-11-08 08:36] LABS: Alanine Aminotransferase 17 U/L (0-40); Albumin Level 4.3 g/dL (3.5-5.0); Alkaline Phosphatase 81 U/L (39-117); Anion Gap 9 (12-20); Aspartate Amino Transferase 16 U/L (5-37); Bilirubin Total 0.7 mg/dL (0.0-1.0); Blood Urea Nitrogen 15 mg/dL (9-16); Calcium 9.5 mg/dL (8.4-10.2); Carbon Dioxide 30 mmol/L (22-29); Chloride 107 mmol/L (96-108); Cholesterol 181 mg/dL (<200); Estimated Glomerular Filt Rate > 60; Glucose Fasting 94 mg/dL (60-99); HDL Cholesterol 48 mg/dL (>40); LDL Cholesterol Calculated 118 mg/dL (<100); Potassium 4.4 mmol/L (3.3-5.1); Sodium 142 mmol/L (135-145); Total Protein 7.6 g/dL (6.5-8.0); Triglycerides 77 mg/dL (<150)
[2023-11-08 08:51] LABS: Prostate Specific Antigen Scr 0.77 ng/mL (<0.05-4.0)
[2023-11-08 08:57] LABS: TSH reflex Free T4 1.13 uIU/mL (0.32-4.0); Vitamin D 25-OH Total 30.8 ng/mL (>30)
[2023-11-08 10:09] LABS: Appearance Urine Clear; Color Urine Yellow; Glucose Urine UA Negative (Negative); Leukocyte Esterase Urine Negative (Negative); Nitrite Urine Negative (Negative); Specific Gravity - Urine 1.015 (1.005-1.025); Urine Blood Negative (Negative); Urine Ketones Negative (Negative); Urine Protein Negative (Neg-Trace)
[2023-11-12 15:18] LABS: Testosterone, Free 125.5 pg/mL (35.0-155.0); Testosterone, Total 589 ng/dL (250-1100)
== END 2023-11-08 07:39 | disposition home or self-care (01) ==
LOC: HO.LAB 07:38
PROVIDERS: PCP Internal Medicine; Visit Provider Internal Medicine
DX: Z00.00 Encounter for general adult medical examination without abnormal findings (principal); Z12.5 Encounter for screening for malignant neoplasm of prostate; E78.00 Pure hypercholesterolemia, unspecified; E55.9 Vitamin D deficiency, unspecified; R79.89 Other specified abnormal findings of blood chemistry; R53.83 Other fatigue; R30.0 Dysuria
CPT/HCPCS: 36415; 80053; 80061; 81003; 82306; 84153; 84402; 84403; 84443; 85025

== ENCOUNTER 2023-11-29 14:06 | Outpatient (AMB) | payer OTHER, SELFPAY ==
[2023-11-29 14:08] VITALS: BP 110/80; PULSE 66; O2SAT 98; BMI 27.8
--- NOTE | 2023-11-29 14:08 | A.OFFPC_ITS ---
Vital Signs 11/29/23 14:08 Height 5 ft 11 in Weight 199 lb BMI 27.8 BP 110/80 Blood Pressure Location Lt brachial Position Sitting Pulse 66 Pulse Source Pulse Oximeter Pulse Oximetry (%) 98 Oxygen Delivery Method Room Air Intake Visit Reasons: HTN, esophagitis, DIMITRI Marble Machine Tender Required: No Accompanied by: Self / Same As Patient Allergies No Known Allergies Allergy (Verified 11/29/23 14:28) Medication List - Last Reconciled 11/29/23 by Branden Recinos MD amlodipine 5 mg PO DAILY ascorbic acid (vitamin C) (Vitamin C) 500 mg PO DAILY cholecalciferol (vitamin D3) 25 mcg PO DAILY diclofenac sodium 50 mg PO Q12H PRN levothyroxine 125 mcg PO DAILY 90 days lisinopril 5 mg PO DAILY 90 days pantoprazole 40 mg PO Q12H sildenafil 50 mg PO DAILY PRN Tobacco use date assessed: 11/29/23 Dental Screening Dental Screen Date: 11/29/23 Did you have a dental visit in the last 12 months?: Yes Did you have a dental problem in the last 6 months where you did not have access to dental care?: No Was dental information given to patient?: Patient has dentist HPI HTN, esophagitis, DIMITRI HPI Details Patient comes in today for his follow up visit States that he feels okay He denies any headaches or dizziness Denies any chest pains, no SOB No nausea/vomiting, no abdominal pain No change in bowel habits noted Had his follow up labs done a few weeks ago - to discuss his results He also had his colonoscopy done back in August 2023 - colonoscopy came out normal and he was recommended to get a repeat colonoscopy in 10 years (2032) [facility] Medical History Hiatal hernia Overweight (BMI 25.0-29.9) Anxiety Erosive esophagitis Insomnia Lumbar degenerative disc disease Obstructive sleep apnea Acquired hypothyroidism Benign essential hypertension Thyroid disease HTN (hypertension) Dysphagia Surgical History Hx of arthroscopic knee surgery History of endoscopy S/P right inguinal hernia repair (04/19/21) Hx of endoscopy History of colonoscopy Family History Father Throat cancer Tongue cancer Mother Family history of high blood pressure Family history of Alzheimer's disease Social History Housing: Apartment Alcohol intake: current Alcohol intake frequency: holidays/special occasions only Patient Tobacco Use Status: Former Tobacco user Quit Date: 17 yrs ago Tobacco use type: Cigarette e-Cigarette/Vaping Use: Never Used Second Hand Smoke Exposure: Yes Substance Use Type: Marijuana service: No Current occupational status: employed Cognitive needs: No Hearing needs: No Vision needs: Yes Questionnaire PHQ-9 Over the last 2 weeks, how often have you been bothered by any of the following problems? 1. Little interest or pleasure in doing things: not at all 2. Feeling down, depressed, or hopeless: not at all 3. Trouble falling or staying asleep, or sleeping too much: not at all 4. Feeling tired or having little energy: not at all 5. Poor appetite or overeating: not at all 6. Feeling bad about yourself - or that you are a failure or have let yourself or your family down: not at all 7. Trouble concentrating on things, such as reading the newspaper or watching television: not at all 8. Moving or speaking so slowly that other people could have noticed. Or the opposite - being so fidgety or restless that you have been moving around a lot more than usual: not at all 9. Thoughts that you would be better off or of hurting yourself in some way: not at all Total score: 0 Depression Screening Interpretation: Negative Depression Screening Done: Yes [id number] - PHQ-9 Billing: Yes Source: Developed by Drs. Edwin Fair, Diana Tuttle, Keenan Navarro and colleagues, with an educational chantel from [employer]. Thrive Questionnaire Date Thrive assessed: 11/29/23 I am a: Patient What is your living situation today?: I have a steady place to live Within the past 12 months, did the food you bought not last and you didn't have the money to get more?: Never true Within the past 12 months, did you worry whether your food would run out before you got money to buy more?: Never true Do you have trouble paying for medicines?: No Do you have trouble getting transportation to medical appointments?: No Do you have trouble paying your heating and electricity bill?: No Do you have trouble taking care of your child, family member or friend?: No Do you have trouble with day-to-day activities such as bathing, preparing meals, shopping, managing finances, etc.?: No Are you currently unemployed and looking for a job?: No Are you interested in more education?: No Please select the resources that you would like help with: None Currently or been in a relationship where the following occur: no concerns reported THRIVE Score: 0 AUDIT C Alcohol Use Questionnaire (AUDIT-C) 1. How often do you have a drink containing alcohol?: Monthly or less 2. How many drinks containing alcohol do you have on a typical day when you are drinking?: 1 or 2 3. How often do you have six or more drinks on one occasion?: Never Total Score: 1 Score Reviewed/Action Taken: Yes TREVIN-7 AMB Questionnaire TREVIN-7 Date TREVIN - 7 assessed: 11/29/23 Feeling nervous, anxious, or on edge: 0 = Not at all Not being able to stop or control worryin = Not at all Worrying too much about different things: 0 = Not at all Trouble relaxin = Not at all Being so restless that it is hard to sit still: 0 = Not at all Becoming easily annoyed or irritable: 0 = Not at all Feeling afraid as if something awful might happen: 0 = Not at all Total TREVIN-7 score (0-4 normal; 5-9 mild; 10-14 moderate; 15-21 severe): 0 Source: Developed by Drs. Edwin Fair, Diana Tuttle, Keenan Navarro and colleagues, with an educational chantel from [employer]. Review of Systems Const Reports difficulty sleeping, Denies fatigue, Denies fever(s) and Denies headache(s) ENT Denies dysphagia, Denies dizziness, Denies otalgia, Denies headache(s), Denies neck pain, Denies odynophagia and Denies sore throat Card Denies chest pain, Denies palpitations and Denies dyspnea Resp Denies cough, Denies dyspnea and Denies wheezing GI Denies abdominal pain, Denies constipation, Denies dysphagia, Denies heartburn, Denies diarrhea, Denies nausea, Denies odynophagia and Denies vomiting Denies dysuria, Denies nocturia and Denies urinary frequency Musc Reports arthralgias (right knee) and Denies neck pain Skin/Breast Denies rash Neuro Denies dizziness and Denies headache(s) Endo Denies fatigue and Denies palpitations Aller/Immun Denies wheezing Physical exam (Primary Care) Vital Signs: Last Vital Signs Pulse 66 11/29/23 14:08 BP 110/80 11/29/23 14:08 Pulse Ox 98 11/29/23 14:08 Oxygen Delivery Method Room Air 11/29/23 14:08 BMI result Body Mass Index 27.8 Tobacco/Smoking Status: Tobacco use Status Tobacco use date assessed 11/29/23 11/29/23 14:13 Patient Tobacco Use Status Former Tobacco user 11/29/23 14:13 Tobacco use type Cigarette 11/29/23 14:13 e-Cigarette/Vaping Use Never Used 11/29/23 14:13 PHQ-9: PHQ-9 Score PHQ-9: Total score 0 11/29/23 14:13 Depression Screening Interpretation: Negative Thrive Assessment: Date of Thrive Assessment Date Thrive assessed 11/29/23 11/29/23 14:13 Currently or been in a relationship where the following occur: no concerns reported Const General: no acute distress and alert HENMT Ears: TM's normal bilaterally and EAC's normal Throat: Yes posterior oropharynx normal and Yes tonsils normal (no TP congestion) Neck Neck: Yes no lymphadenopathy and Yes supple Resp Auscultation: clear to auscultation bilaterally, no rales and no wheezes Cardio Rate: regular rate Rhythm: regular rhythm Heart sounds: no murmurs GI Palpation (GI): Soft to palpation and nontender Auscultation: normal bowel sounds Back/Spine/Pelvis Thoracic/Lumbar Spine: thoracic and lumbar spine normal to inspection Extrem General: Yes no clubbing, cyanosis or edema Right lower extremity: knee Details: tenderness and crepitus; no swelling Results Reviewed Results Reviewed: Laboratory Tests 11/08/23 11/08/23 07:53 07:54 WBC 6.8 Hgb 16.1 Hct 49.0 Plt Count 279 Sodium 142 Potassium 4.4 Creatinine 0.97 Estimated GFR > 60 Fasting Glucose 94 Calcium 9.5 AST 16 ALT 17 Triglycerides 77 Cholesterol 181 LDL Cholesterol, Calc 118 H HDL Cholesterol 48 PSA Screen 0.77 25-OH Vitamin D Total 30.8 L TSH 1.13 Total Testosterone 589 Fr Testosterone Dialys 125.5 Ur Specific [place] 1.015 Urine Protein Negative Urine Glucose (UA) Negative Urine Blood Negative Assessment and Plan Assessment & Plan (1) Benign essential hypertension: Code(s): I10 - Essential (primary) hypertension Plan: Results of his labs done a few weeks ago reviewed and discussed with patient Reinforced low sodium diet - goal is systolic BP of 120 mm or less Continue Amlodipine 5 mg QD and Lisinopril 5 mg QD (2) Acquired hypothyroidism: Code(s): E03.9 - Hypothyroidism, unspecified Plan: Advised that his TFTs are normal on his recent labs Continue Levothyroxine 125 mcg QD Will recheck his TFTs and labs in 6 month for follow up (3) Obstructive sleep apnea: Comment: uses cpap Code(s): G47.33 - Obstructive sleep apnea (adult) (pediatric) Plan: Was using his CPAP device when sleeping at night regularly until a few months ago; is now using a BiPAP device but is still having problems tolerating the device when sleeping Follow up with sleep medicine at [facility] as scheduled (4) Erosive esophagitis: Code(s): K22.10 - Ulcer of esophagus without bleeding Plan: Dietary restrictions reinforced Continue Pantoprazole 40 mg BID Follow up with GI as scheduled (5) Osteoarthritis of right knee: Code(s): M17.11 - Unilateral primary osteoarthritis, right knee Qualifiers: Osteoarthritis type: primary Qualified Code(s): M17.11 - Unilateral primary osteoarthritis, right knee Plan: Was seen by [facility] a few months ago and had visco supplementation in the right knee, which he states did not really help much Continues to experience frequent knee pain but states that the pain is mostly manageable lately Right knee x-rays done last year revealed (+) moderate narrowing medial knee joint compartment with mild osteophytes. No erosive changes; (+) narrowing of the lateral patellofemoral joint and spurring of the quadriceps insertion patella Follow up with orthopedics at [facility] as scheduled (6) Lumbar degenerative disc disease: Code(s): M51.36 - Other intervertebral disc degeneration, lumbar region Plan: Reinforced activity and weight-lifting restrictions Was diagnosed with SI joint dysfunction/syndrome and is currently debating on available treatment options States that his low back pain was relieved temporarily with injections a few months ago Follow up with pain management as scheduled (7) Erectile dysfunction: Code(s): N52.9 - Male erectile dysfunction, unspecified Qualifiers: Erectile dysfunction type: unspecified Qualified Code(s): N52.9 - Male erectile dysfunction, unspecified Plan: Continue Viagra 50 ng QD PRN (8) Insomnia: Code(s): G47.00 - Insomnia, unspecified Qualifiers: Insomnia type: unspecified Qualified Code(s): G47.00 - Insomnia, unspecified Plan: Sleep hygiene reinforced Was started on a trial of Mirtazapine a few months ago but could not tolerate Rx - Rx discontinued Continue Zolpidem 10 mg Q HS PRN He has been taking 1/2 tablet of Clonazepam at times to help him sleep - is advised again that it is not a good idea to continue taking Clonazepam for sleep as is not indicated for sleep and can be habit-forming if taken regularly (9) Overweight (BMI 25.0-29.9): Code(s): E66.3 - Overweight Plan: Reinforced diet/exercise as tolerated/lose weight Plan Follow up in 6 months Orders: Orders Complete Blood Count Auto Diff 6 Months D64.9 - Anemia, unspecified UA CC w/rflx Micro + Cult 6 Months R30.0 - Dysuria Comprehensive [place]. Panel Fast 6 Months E78.00 - Pure hypercholesterolemia, unspecified Lipid Panel 6 Months E78.00 - Pure hypercholesterolemia, unspecified Thyroid Stimulating Hormone 6 Months E03.9 - Hypothyroidism, unspecified Free T4 (Free Thyroxine) 6 Months E03.9 - Hypothyroidism, unspecified Vitamin D 25-OH Total 6 Months E55.9 - Vitamin D deficiency, unspecified Coding Level of Care Code Est Pt Level 4 (96220) Diagnoses Benign essential hypertension I10 Acquired hypothyroidism E03.9 Obstructive sleep apnea G47.33 Erosive esophagitis K22.10 Primary osteoarthritis of right knee M17.11 Osteoarthritis type: primary Lumbar degenerative disc disease M51.36 Erectile dysfunction, unspecified erectile dysfunction type N52.9 Erectile dysfunction type: unspecified Insomnia, unspecified type G47.00 Insomnia type: unspecified Overweight (BMI 25.0-29.9) E66.3
== END 2023-11-29 14:46 | disposition home or self-care (01) ==
PROVIDERS: PCP Internal Medicine; Visit Provider Internal Medicine
DX: I10 Essential (primary) hypertension (principal); E03.9 Hypothyroidism, unspecified; G47.33 Obstructive sleep apnea (adult) (pediatric); K22.10 Ulcer of esophagus without bleeding; M17.11 Unilateral primary osteoarthritis, right knee; M51.36 Other intervertebral disc degeneration, lumbar region; N52.9 Male erectile dysfunction, unspecified; G47.00 Insomnia, unspecified; E66.3 Overweight
CPT/HCPCS: 99214

== ENCOUNTER 2024-01-22 13:44 | Outpatient (AMB) | payer OTHER, SELFPAY ==
--- NOTE | 2024-01-22 13:45 | A.OFFVIS_ITS ---
Vital Signs 01/22/24 13:48 Height 5 ft 11 in Weight 202 lb 13.204 oz BMI 28.3 BP 112/62 Blood Pressure Location Lt brachial Position Sitting Pulse 65 Intake Visit Reasons: discuss EGD Intake Note: Ron presents in the office as a follow up. CC: He states that he is not having any concerns at this time. Threading Machine Feeder Automatic Required: No Allergies No Known Allergies Allergy (Verified 11/29/23 14:28) HPI HPI discuss EGD: Details: 63 yr old m being seen for f/u RECAP: Seen for dysphagia in the past food goes to esophagus and hangs around can hurt going down going on for 6 yrs, gradually getting worse has been taking omeprazole, had been helping but not that much any more only with solids, ok with liquids denies heartburn no constipation, diarrhea no rectal bleeding, no melena colonoscopy 5 yrs ago, [place] and it was normal BA swallow- 12/25/2019--small hiatal hernia, mild GERD EGD --thick schatzki ring, dilated with balloon, LES and UES, 3 cm hital hernia BX: moderate inactive inflammation of stomach, esophagus nml, neg for h pylori Repeat EGD with dilation : 11/2022 --schatzki ring noted again, dilated at LES and UES hiatal hernia- 4 cm colonoscopy 08/2023 Viramontes diverticulosis small int hemorrhoids INTERIM: swallowing is good as long as takes PPI no other issues, no dysphagia no chest pain no nausea or vomiting no melena, or rectal bleeding not taking MV EXAM: GENERAL: The patient is well developed and nontoxic. VITAL SIGNS:see workflow HEENT: Nonicteric sclerae, PERRLA, EOMI. Oropharynx clear. Moist mucous membranes. Conjunctivae appear well perfused. No thyroid mass. CHEST: Chest wall is nontender. HEART: Regular rate and rhythm without murmurs. LUNGS: Clear to auscultation bilaterally. ABDOMEN: Soft, positive bowel sounds, nontender, no organomegaly.no flank tenderness SKIN: No rash, no excessive bruising, petechiae, or purpura. NEUROLOGIC: Cranial nerves II-XII intact without motor/sensory deficit. Psych: normal affect Assessment & Plan (1) Dysphagia: due to schatzki ring and esophagitis, controlled with PPI PLAN: 1/ cont with PPI pantoprazole once daily works well 2/ rept EGD as needed. maybe next year for gen check up 3/ discussed surgical options again incl fundoplication and hernia repair, wants to hold for the moment 4/ periodic check b12, mag, iron studies, Vit D--is taking Vit D but not MV f/u 12 month or earlier if needed PFSH Medical History Hiatal hernia Overweight (BMI 25.0-29.9) Anxiety Erosive esophagitis Insomnia Lumbar degenerative disc disease Obstructive sleep apnea Acquired hypothyroidism Benign essential hypertension Thyroid disease HTN (hypertension) Dysphagia Surgical History Hx of arthroscopic knee surgery History of endoscopy S/P right inguinal hernia repair (04/19/21) Hx of endoscopy History of colonoscopy Family History Father Throat cancer Tongue cancer Mother Family history of high blood pressure Family history of Alzheimer's disease Social History Housing: Apartment Alcohol intake: current Alcohol intake frequency: holidays/special occasions only Patient Tobacco Use Status: Former Tobacco user Quit Date: 17 yrs ago Tobacco use type: Cigarette e-Cigarette/Vaping Use: Never Used Second Hand Smoke Exposure: Yes Substance Use Type: Marijuana service: No Current occupational status: employed Cognitive needs: No Hearing needs: No Vision needs: Yes Physical Exam Vital Signs: Last Vital Signs Pulse 65 01/22/24 13:48 BP 112/62 01/22/24 13:48 BMI result Body Mass Index 28.3 Assessment & Plan Assessment & Plan (1) Dysphagia: Code(s): R13.10 - Dysphagia, unspecified Category: Medical Qualifiers: Dysphagia type: esophageal phase Qualified Code(s): R13.10 - Dysphagia, unspecified Plan: see above Medications: New multivitamin 1 tab PO DAILY 30 tabs 2RF Coding Level of Care Code Est Pt Level 3 (16094) Diagnoses Esophageal dysphagia R13.10 Dysphagia type: esophageal phase
[2024-01-22 13:48] VITALS: BP 112/62; PULSE 65; BMI 28.3
== END 2024-01-22 14:18 | disposition home or self-care (01) ==
PROVIDERS: PCP Internal Medicine; Visit Provider Internal Medicine Gastroenterology
DX: R13.10 Dysphagia, unspecified (principal)
CPT/HCPCS: 99213

== ENCOUNTER → 2024-01-22 13:44 | Outpatient (BNVA) | payer OTHER, SELFPAY | PROVIDERS: PCP Internal Medicine; Visit Provider Internal Medicine Gastroenterology ==

== ENCOUNTER 2024-04-17 15:26 | Outpatient (AMB) | payer OTHER, SELFPAY ==
--- NOTE | 2024-04-17 15:27 | A.OFFPC_ITS ---
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 per policy Accompanied by: Self / Same As Patient Allergies No Known Allergies Allergy (Verified 04/18/24 05:47) Medication List - Last Reconciled 04/18/24 by Branden Recinos MD amlodipine 5 mg PO DAILY ascorbic acid (vitamin C) (Vitamin C) 500 mg PO DAILY cholecalciferol (vitamin D3) 25 mcg PO DAILY diclofenac sodium 50 mg PO Q12H PRN levothyroxine (Euthyrox) 125 mcg PO DAILY 90 days levothyroxine 125 mcg PO DAILY 90 days lisinopril 5 mg PO DAILY 90 days multivitamin 1 tab PO DAILY pantoprazole 40 mg PO Q12H sildenafil 50 mg PO DAILY PRN Tobacco use date assessed: 11/29/23 Dental Screening Dental Screen Date: 11/29/23 HPI Discuss Disability Paperwork HPI Details Patient comes in today mainly to have his FMLA / disability papers filled out He has requested for some papers to be filled out for his employer ([employer] in [place]) a few days ago requesting for some modifications to his work assignment due to his lower back issues but we needed further clarification on some questions to be able to fill out his forms properly States that he is changing his regular work schedule, which would now 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 to be doing a lot of leaning over and bending and this will aggravate his lower back issues so he is requesting [employer] not to assign him to work at these tables and he was then advised to have some papers filled out for this purpose Patient states that he has had no acute issues at present otherwise [facility] Medical History Hiatal hernia Overweight (BMI 25.0-29.9) Anxiety Erosive esophagitis Insomnia Lumbar degenerative disc disease Obstructive sleep apnea Acquired hypothyroidism Benign essential hypertension Thyroid disease HTN (hypertension) Dysphagia Surgical History Hx of arthroscopic knee surgery History of endoscopy S/P right inguinal hernia repair (04/19/21) Hx of endoscopy History of colonoscopy Family History Father Throat cancer Tongue cancer Mother Family history of high blood pressure Family history of Alzheimer's disease Social History Housing: Apartment Alcohol intake: current Alcohol intake frequency: holidays/special occasions only Patient Tobacco Use Status: Former Tobacco user Tobacco use type: Cigarette e-Cigarette/Vaping Use: Never Used Second Hand Smoke Exposure: Yes Substance Use Type: Marijuana service: No Current occupational status: employed Cognitive needs: No Hearing needs: No Vision needs: Yes Questionnaire Thrive Questionnaire Date Thrive assessed: 11/29/23 TREVIN-7 AMB Questionnaire TREVIN-7 Date TREVIN - 7 assessed: 11/29/23 Source: Developed by Drs. Edwin Fair, Diana Tuttle, Keenan Navarro and colleagues, with an educational chantel from [employer]. Review of Systems Const Denies fatigue, Denies fever(s) and Denies headache(s) ENT Denies dysphagia, Denies dizziness, Denies otalgia, Denies headache(s), Denies neck pain, Denies odynophagia and Denies sore throat Card Denies chest pain, Denies palpitations and Denies dyspnea Resp Denies cough, Denies dyspnea and Denies wheezing GI Denies abdominal pain, Denies constipation, Denies dysphagia, Denies heartburn, Denies diarrhea, Denies nausea, Denies odynophagia and Denies vomiting Denies dysuria, Denies nocturia and Denies urinary frequency Musc Reports back pain (over the lower back, on and off), Reports arthralgias (right knee) and Denies neck pain Skin/Breast Denies rash Neuro Denies dizziness and Denies headache(s) Endo Denies fatigue and Denies palpitations Aller/Immun Denies wheezing Physical exam (Primary Care) Vital Signs: Last Vital Signs Pulse 67 04/17/24 15:28 BP 120/82 04/17/24 15:28 Pulse Ox 98 04/17/24 15:28 Oxygen Delivery Method Room Air 04/17/24 15:28 BMI result Body Mass Index 28.2 Tobacco/Smoking Status: Tobacco use Status Tobacco use date assessed 11/29/23 04/17/24 15:28 Patient Tobacco Use Status Former Tobacco user 04/17/24 15:28 Tobacco use type Cigarette 04/17/24 15:28 e-Cigarette/Vaping Use Never Used 04/17/24 15:28 Thrive Assessment: Date of Thrive Assessment Date Thrive assessed 11/29/23 04/17/24 15:28 Const General: no acute distress and alert Neck Neck: Yes no lymphadenopathy and Yes supple Resp Auscultation: clear to auscultation bilaterally Cardio Rate: regular rate Rhythm: regular rhythm Heart sounds: no murmurs GI Palpation (GI): Soft to palpation and nontender General: Yes no CVA tenderness Back/Spine/Pelvis Back: no CVA tenderness Thoracic/Lumbar Spine: lumbar spinal tenderness Sacroiliac joints: bilaterally tender to palpation Extrem General: Yes no clubbing, cyanosis or edema Assessment and Plan Assessment & Plan (1) Sacroiliac joint pain: Code(s): M53.3 - Sacrococcygeal disorders, not elsewhere classified (2) Lumbar degenerative disc disease: Code(s): M51.36 - Other intervertebral disc degeneration, lumbar region Plan Reinforced activity and work lifting restrictions Have discussed and filled out patient's papers regarding his disability accommodations for his employer ([employer]); papers are then scanned into his chart and the original forms are handed to patient today Follow-up with Pain Management as scheduled To return as scheduled in May 2024 for his next regularly scheduled follow-up appointment Coding Level of Care Code Est Pt Level 3 (75518) Diagnoses Sacroiliac joint pain M53.3 Lumbar degenerative disc disease M51.36
[2024-04-17 15:28] VITALS: BP 120/82; PULSE 67; O2SAT 98; BMI 28.2
== END 2024-04-17 16:18 | disposition home or self-care (01) ==
PROVIDERS: PCP Internal Medicine; Visit Provider Internal Medicine
DX: M53.3 Sacrococcygeal disorders, not elsewhere classified (principal); M51.36 Other intervertebral disc degeneration, lumbar region
CPT/HCPCS: 99213

== ENCOUNTER 2024-05-23 09:57 | Day surgery (SDC) | payer OTHER, SELFPAY ==
--- OUTSIDE RECORDS SUMMARY | 2024-05-23 09:59 | XMS_ITS | Continuity of Care Document ---
Author Organization [facility] Address [address] [place] [address]- Care Team Providers Care Gold Frame Assembler Name Role Phone Branden Recinos MD Primary Care Physician [phone] Encounter [facility] Date(s): 01/18/24 - 02/17/[address] [address] Allergies, Adverse Reactions, Alerts No Known Allergies Medications Synthroid By Mouth, Daily, Refills 0, Maintenance, 11/23/18 15:16:22 EST Start Date: 11/23/18 Status: Ordered Problem List Condition Confirmation Course Effective Dates Status H ealth Status Informant Arthritis Confirmed Active Shift work sleep disorder Confirmed Active Hiatal hernia Confirmed Active Hypothyroidism Confirmed Active Obstructive sleep apnea Confirmed Active Primary insomnia Confirmed Active Social History Social History Type Response Smoking Status Never (less than 100 in lifetime) entered on: 11/23/18 Sex Patient Care team information Care Team Personnel Name: Branden Recinos MD Position: Reference Physician Member Role: PCP Address: Address: [address] [place] [id number] Care Team Related Persons Name: FABIO RANDLE Address: home [address] [place] [address]
--- OUTSIDE RECORDS SUMMARY | 2024-05-23 09:59 | XMS_ITS | Continuity of Care Document ---
Author Organization [facility] Address [address] [place] [address]- Care Team Providers Care Director Of Conservation Name Role Phone Branden Recinos MD Primary Care Physician [phone] [facility] [facility] Date(s): 05/31/23 - 06/30/23 [facility] [address] [place] [address]- Allergies, Adverse Reactions, Alerts No Known Allergies Medications Synthroid By Mouth, Daily, Refills 0, Maintenance, 11/23/18 15:16:22 EST Start Date: 11/23/18 Status: Ordered Problem List Condition Confirmation Course Effective Dates Status H ealth Status Informant Arthritis Confirmed Active Hiatal hernia Confirmed Active Hypothyroidism Confirmed Active Obstructive sleep apnea Confirmed Active Primary insomnia Confirmed Active Social History Social History Type Response Smoking Status Never (less than 100 in lifetime) entered on: 11/23/18 Sex Patient Care team information Care Team Personnel Name: Branden Recinos MD Position: Reference Physician Member Role: PCP Address: Address: [address] [place] [address] [address] [place] [id number] Care Team Related Persons Name: FABIO RANDLE Address: home [address] [place] [address]
--- OUTSIDE RECORDS SUMMARY | 2024-05-23 09:59 | XMS_ITS | Continuity of Care Document ---
Author Organization [facility] Address [address] [place] [address]- Care Team Providers Care Senior Stack Engineer Name Role Phone Mckenna Crocker MD Primary Care Physician [phone] [id number] Date(s): 03/15/22 - 07/13/22 [facility] [address] [place] [address]- us Attending Physician: Susan Johnson MD Admitting Physician: Susan Johnson MD Referring Physician: Mckenna Crocker MD Allergies, Adverse Reactions, Alerts No Known Allergies [...] on: 11/23/18 Sex Patient Care team information Personnel Name: Mckenna Crocker MD Address: Address: [address] [place] [id number]
--- OUTSIDE RECORDS SUMMARY | 2024-05-23 09:59 | XMS_ITS | Continuity of Care Document ---
Author Organization [facility] Address [address] [place] [address]- Care Team Providers Care Operations Support Representative Name Role Phone Branden Recinos MD Primary Care Physician Encounter [facility] Date(s): 07/27/23 - 08/26/23 [facility] [address] [place] [address]- Allergies, Adverse Reactions, Alerts No Known Allergies [...] Reference Physician Member Role: PCP Address: Address: [address] [place] [address] [address] [place] [address]- Care Team Related Persons Name: FABIO RANDLE Address: home [address] [place] [address]
--- OUTSIDE RECORDS SUMMARY | 2024-05-23 09:59 | XMS_ITS | Continuity of Care Document ---
Author Organization [facility] Address [address] [place] [address]- Care Team Providers Care Junior Media Buyer Name Role Phone Branden Recinos MD Primary Care Physician [phone] [facility] Date(s): 12/06/23 - 01/06/24 [facility] [address] [place] [address]- Attending Physician: Susan Johnson MD Admitting Physician: Susan Johnson MD Allergies, Adverse Reactions, Alerts No Known [...] Reference Physician Member Role: PCP Address: Address: [address] [place] [address] [address] [place] [address]- Care Team Related Persons Name: RANDLEFABIO Address: home [address] [place] [address]
--- OUTSIDE RECORDS SUMMARY | 2024-05-23 09:59 | XMS_ITS | Continuity of Care Document ---
Author Organization [facility] Address [address] [place] [address]- Care Team Providers Care Administrative Appeals Tribunal Member Name Role Phone Branden Recinos MD Primary Care Physician Encounter [facility] Date(s): 04/09/24 - 05/09/24 [facility] [address] [place] [address]- Allergies, Adverse Reactions, Alerts No Known Allergies [...] Role: PCP Address: Address: [address] [place] [id number] Care Team Related Persons Name: FABIO RANDLE Address: home [address] [place] [address]
--- OUTSIDE RECORDS SUMMARY | 2024-05-23 09:59 | XMS_ITS | Continuity of Care Document ---
Author Organization [facility] Address [address] [place] [address]- Care Team Providers Care Furniture Decals Inspector Name Role Phone Branden Recinos MD Primary Care Physician [place] [facility] Date(s): 12/22/23 - 01/21/24 [facility] [address] [place] [id number] Allergies, Adverse Reactions, Alerts No Known [...] Role: PCP Address: Address: [address] [place] [id number] Care Team Related Persons Name: FABIO RANDLE Address: home [address] [place] [address]
--- OUTSIDE RECORDS SUMMARY | 2024-05-23 09:59 | XMS_ITS | Continuity of Care Document ---
Author Organization [facility] Address [address] [place] [address]- Care Team Providers Care Weapons Officer Naval Activity Name Role Phone Mckenna Crocker MD Primary Care Physician [id number] Date(s): 02/01/23 - 03/08/[address] [address]- Attending Physician: Susan Johnson MD Admitting Physician: Susan Johnson MD Referring Physician: Susan Johnson MD Allergies, Adverse Reactions, [...] Care team information Care Team Personnel Name: Mckenna Crocker MD Position: [facility] Outreach Member Role: PCP Address: Address: [address] [place] [id number] Care Team Related Persons Name: RANDLEJOSIAH DOS SANTOSLITZA Address: home [address] [place] [address]
--- OUTSIDE RECORDS SUMMARY | 2024-05-23 09:59 | XMS_ITS | Continuity of Care Document ---
Author Organization [facility] Address [address] [place] [address]- Care Team Providers Care Honing Machine Operator Semiautomatic Name Role Phone Branden Recinos MD Primary Care Physician [facility] [id number] Date(s): 11/14/23 - 12/14/23 [facility] [address] [address]- Allergies, Adverse Reactions, Alerts No Known Allergies [...] Reference Physician Member Role: PCP Address: Address: [address] [place] [address] [address] [place] [address]- Care Team Related Persons Name: FABIO RANDLE Address: home [address] [place] [address]
--- OUTSIDE RECORDS SUMMARY | 2024-05-23 09:59 | XMS_ITS | Continuity of Care Document ---
Author Hub Preferred Language Kyrgyz Marital Status Judaism Affiliation Unknown Race Unknown Ethnic Group or Author Organization [facility] Address [address] [place] [address]- Care Team Providers Care Air Export Agent Name Role Phone Branden Recinos MD Primary Care Physician [facility] Date(s): 03/17/23 - 07/15/23 [facility] [address] [place] [address]- Attending Physician: Susan Johnson MD Admitting Physician: Susan Johnson MD Referring Physician: [facility] Allergies, Adverse Reactions, Alerts No Known Allergies [...] Reference Physician Member Role: PCP Address: Address: [address] [place] [address] [address] [place] [id number] Care Team Related Persons Name: FABIO RANDLE Address: home [address] [place] [address]
--- OUTSIDE RECORDS SUMMARY | 2024-05-23 09:59 | XMS_ITS | Continuity of Care Document ---
Author Organization [facility] Address [address] [place] [address]- Care Team Providers Care Sweeper Operator Highways Name Role Phone Mckenna Crocker MD Primary Care Physician [id number] Date(s): 11/03/22 - 03/01/23 [facility] [address] [address]- Attending Physician: Susan Johnson MD Admitting Physician: [...] Team Personnel Name: Mckenna Crocker MD Position: [facility] Outreach Member Role: PCP Address: Address: [address] [place] [address]- Care Team Related Persons Name: FABIO RANDLE Address: home [address] [place] [address]
[2024-05-23 10:11] VITALS: BP 128/86; PULSE 67; RESP 16; TEMP 36.3; O2SAT 96; BMI 28.3
--- NOTE | 2024-05-23 10:24 | MHC.SHP ---
Pre-Procedural Eval Section A - 24 Hr Update-Section A only Date of Service: 05/23/24 Section B - Complete if H&P > 30 days Chief Complaint: Dysphagia, unspecified Relevant Family History (Specify if Yes): No Relevant Social History: None Present Medications: see Short Stay Collaborative assessment Medical History: Significant History (Hiatal hernia Overweight (BMI 25.0-29.9) Anxiety Erosive esophagitis Insomnia Lumbar degenerative disc disease Obstructive sleep apnea Acquired hypothyroidism Benign essential hypertension Thyroid disease HTN (hypertension) Dysphagia) History of Previous Operations: Relevant previous surgery/procedure and date(s) (Hx of arthroscopic knee surgery History of endoscopy S/P right inguinal hernia repair (04/19/21) Hx of endoscopy History of colonoscopy) Allergies: Allergies Allergy/AdvReac Type Severity Reaction Status Date / Time No Known Allergies Allergy Verified 04/18/24 05:47 Review of Systems Sugical H&P ROS: Negative: Constitution, Cardiovascular, Respiratory, Neurological, Psychiatric, Hem-Onc, Allergic/Immunologic, Gastrointestinal, Genitourinary, Musculoskeletal, Integumentary, Endocrine and Eyes/Ears/Nose/Throat Exam Surgical H&P Exam: Normal: HEENT, Normal: Heart, Normal: Lungs, Normal: Extremities, Normal: Abdomen, Normal: Skin and Normal: Neurological Plan Diagnosis/Plan: Unchanged I have reviewed the history and physical and performed a pertinent physical examination on my patient. No changes have occurred unless specified. Time Spent With Patient Time: Total time managing care of this patient today ____ minutes.
[2024-05-23] MEDS: Lactated Ringers 1,000 ML 100 ML IVCONT (10:26)
--- NOTE | 2024-05-23 11:03 | HO.ANESPROP2 ---
HPI - Anesthesia Eval Consult details Narrative: 64 yo M presenting for EGD with balloon dilation PMFSH Active Problems Active Problems: All Active Problems Skin lesions (Acute) History of arthroscopy of both knees (Acute) Osteoarthritis of right knee (Acute) Colon cancer screening (Acute) Annual physical exam (Acute) Right knee DJD (Acute) Benign paroxysmal vertigo (Acute) Erectile dysfunction (Acute) Sacroiliac joint pain (Acute) Right inguinal hernia (Acute) Dysphagia (Acute) Overweight (BMI 25.0-29.9) (Acute) Anxiety (Acute) Erosive esophagitis (Acute) Insomnia (Acute) Lumbar degenerative disc disease (Acute) Obstructive sleep apnea (Acute) Acquired hypothyroidism (Acute) Benign essential hypertension (Acute) Past Medical History Medical History Hiatal hernia Overweight (BMI 25.0-29.9) Anxiety Erosive esophagitis Insomnia Lumbar degenerative disc disease Obstructive sleep apnea Acquired hypothyroidism Benign essential hypertension Thyroid disease HTN (hypertension) Dysphagia Family History Family History Father Throat cancer Tongue cancer Mother Family history of high blood pressure Family history of Alzheimer's disease Family history of problems with anesthesia: No Surgical History Surgical History Hx of arthroscopic knee surgery History of endoscopy S/P right inguinal hernia repair (04/19/21) Hx of endoscopy History of colonoscopy History of Problems with Anesthesia: No Social History Social History Housing: Apartment Alcohol intake: current Alcohol intake frequency: a few times a month Patient Tobacco Use Status: Former Tobacco user Tobacco use type: Cigarette e-Cigarette/Vaping Use: Never Used Second Hand Smoke Exposure: Yes Use of substances other than those prescribed or required for medical reasons: Yes Substance Use Type: Marijuana Have you been hit, kicked, punched, or otherwise hurt by someone within the past year? If so, by whom?: No Are you DNR?: No Advance Directives: No Advance Directives Information Provided: Yes Recently lost weight without trying: No service: No Current occupational status: employed Cognitive needs: No Hearing needs: No Vision needs: Yes Meds Allergies Allergy/AdvReac Type Severity Reaction Status Date / Time No Known Allergies Allergy Verified 04/18/24 05:47 Active Medications: Current Medications Lactated Ringer's (Lr) 1,000 mls @ 100 mls/hr IVCONT .Q10H BOOKER Last Admin: 05/23/24 10:26 Dose: 100 mls/hr Home Medications ?Medication ?Instructions ?Recorded ?Confirmed ?Last Taken ?Type ascorbic acid (vitamin C) 500 mg 500 mg PO DAILY 08/31/23 04/18/24 Unknown History tablet (Vitamin C) Exam Exam Date and Time: 05/23/24 1102 Height,Weight and Vital Signs: Height 5 ft 11 in Weight 92.079 kg Last Vital Signs Temp 97.3 F 05/23/24 10:11 Pulse 67 05/23/24 10:11 Resp 16 05/23/24 10:11 BP 128/86 05/23/24 10:11 Pulse Ox 96 05/23/24 10:11 O2 Del Method Room Air 05/23/24 10:11 Airway Mallampati Class: II TM Dist: >3cm Neck ROM: Full Loose/Missing/Broken Teeth: No (patient denies any loose or broken teeth) Heart: S1S2 Lungs: CTAB Assessment and Plan Assessment Anesthesia Assessment: Anesthesia Plan Discussed and Chart Reviewed Final Anesthetic Review Family History of Problems with Anesthesia: No History of Problems with Anesthesia: No NPO: Yes ASA Class: II Final Preanesthetic Review: No Changes in Pt Med Stat, Meds/Allgs Chart Reviewed, Consent Obtained/Reviewed and Anes Risks/Benef Reviewed Patient Risk: Low Procedure Risk: Low Anesthetic Plan Anesthetic Plan: MAC: Disposition: Standard PACU
--- NOTE | 2024-05-23 11:33 | W.PM.OPN ---
Operative Note Operative Note Date of Service: 05/23/24 Narrative: Procedure Description: EGD Indication: dysphagia Anesthesia: MAC FLEXIBLE TRANSORAL UPPER GASTROINTESTINAL ENDOSCOPY UPPER ENDOSCOPY Consent: Indications for the procedure and potential complications of bleeding, perforation, reaction to medications and missed diagnosis were discussed with the patient and informed consent was obtained. Instrument: Olympus GIF H 190 J mid size upper endoscope Monitoring: Vital signs and clinical assessment, continuous EKG monitoring, Pulse oximetry, Carbon Dioxide monitoring and blood pressure monitoring were done throughout the procedure. Procedure: The patient was placed in the left lateral decubitis position and pre-procedure medications were administered and a bite block was placed. The endoscope was inserted into the mouth and advanced under direct vision to the third part of duodenum. A careful inspection was made as the upper endoscope was withdrawn including a retroflexed examination of the proximal stomach; Findings and interventions are described below. Findings: Larynx:normal Esophagus: GE junction at 40? cm, diaphragm hiatus at 44 cm, Thick fibrous schatzki ring noted at GEJ. 19 mm balloon used to stretch with disruption noted with heme, balloon then stretched at UES to 19 mm when resistance felt. 4 cm sliding hiatal hernia noted. there was also an isolated erosion at the GEJ with surrounding esophagitis. Stomach: mild erythema. Grade 2 flap valve on retroflexed examination of the cardia. Duodenum: mild duodenitis Intervention: Balloon dilation Impression/Findings: gastritis duodenitis erosive esophagitis schztzki ring hiatal hernia PLAN: confirm compliance with BId pantoprazole GERD precautions magic mouthwash for 1 week Intervention: balloon dilation Impression/Findings: hiatal hernia esophagitis schatzki ring and stricture
[2024-05-23 11:53] VITALS: BP 114/72; PULSE 88; RESP 16; TEMP 36.1; O2SAT 92
[2024-05-23 12:08] VITALS: BP 130/90; PULSE 83; RESP 16; TEMP 36.2; O2SAT 94
== END 2024-05-23 12:34 | disposition home or self-care (01) ==
PROVIDERS: PCP Internal Medicine; Visit Provider Internal Medicine Gastroenterology
PROC: (CPT 43249; principal; 2024-05-23 12:00)
DX: R13.10 Dysphagia, unspecified (principal); K22.2 Esophageal obstruction; K20.90 Esophagitis, unspecified without bleeding; K29.70 Gastritis, unspecified, without bleeding; K29.80 Duodenitis without bleeding; K44.9 Diaphragmatic hernia without obstruction or gangrene; Z79.899 Other long term (current) drug therapy; Z87.891 Personal history of nicotine dependence
CPT/HCPCS: 43249; C1726; J1596; J2704

== ENCOUNTER → 2024-05-23 09:57 | Outpatient (BNV) | payer OTHER, SELFPAY | PROVIDERS: PCP Internal Medicine; Visit Provider Internal Medicine Gastroenterology | DX: K22.2 Esophageal obstruction (principal); K29.70 Gastritis, unspecified, without bleeding; K29.80 Duodenitis without bleeding; K20.90 Esophagitis, unspecified without bleeding | CPT/HCPCS: 43249 ==

== ENCOUNTER 2024-06-03 14:23 | Outpatient (REF) | payer OTHER, SELFPAY ==
[2024-06-03 14:55] LABS: MANUAL DIFF FLAG NO
[2024-06-03 15:13] LABS: Basophils Absolute Auto 0.1 X10*3/uL (0.0-0.2); Basophils Percent Auto 0.6 % (0-2); Eosinophils Absolute Auto 0.2 X10*3/uL (0.0-0.4); Eosinophils Percent Auto 2.7 % (0-4); Hematocrit 46.6 % (42.0-52.0); Hemoglobin 15.2 g/dl (14.0-18.0); Imm Gran Abs Auto 0.03 X10*3/uL (0.00-0.03); Imm Gran Pct Auto 0.4 % (0.0-0.4); Lymphocytes Absolute Auto 1.9 X10*3/uL (1.2-4.9); Lymphocytes Percent Auto 24.4 % (20-40); Mean Corpuscular HGB Conc 32.6 g/dl (31.0-36.0); Mean Corpuscular Hemoglobin 29.6 pg (27.0-33.0); Mean Corpuscular Volume 90.8 fL (80.0-98.0); Mean Platelet Volume 9.4 fL (9.4-12.4); Monocytes Absolute Auto 0.6 X10*3/uL (0.1-1.2); Monocytes Percent Auto 7.5 % (2-11); Neutrophils Percent Auto 64.4 % (45-73); Platelet Count 333 X10*3/uL (160-400); Red Blood Count 5.13 X10*6/uL (4.60-5.80); Red Cell Distribution Width 13.4 % (11.0-16.0); White Blood Count 7.8 X10*3/uL (4.8-10.8)
[2024-06-03 15:28] LABS: Appearance Urine Clear; Color Urine Yellow; Glucose Urine UA Negative (Negative); Leukocyte Esterase Urine Negative (Negative); Nitrite Urine Negative (Negative); Urine Blood Negative (Negative); Urine Ketones Negative (Negative); Urine Protein Negative (Neg-Trace)
[2024-06-03 17:19] LABS: Alanine Aminotransferase 17 U/L (0-40); Albumin Level 4.1 g/dL (3.5-5.0); Alkaline Phosphatase 82 U/L (39-117); Anion Gap 14 (12-20); Aspartate Amino Transferase 16 U/L (5-37); Bilirubin Total 0.7 mg/dL (0.0-1.0); Blood Urea Nitrogen 19 mg/dL (9-16); Calcium 9.5 mg/dL (8.4-10.2); Carbon Dioxide 27 mmol/L (22-29); Chloride 106 mmol/L (96-108); Cholesterol 143 mg/dL (<200); Estimated Glomerular Filt Rate > 60; Glucose Fasting 99 mg/dL (60-99); HDL Cholesterol 37 mg/dL (>40); LDL Cholesterol Calculated 92 mg/dL (<100); Potassium 4.1 mmol/L (3.3-5.1); Sodium 143 mmol/L (135-145); Total Protein 7.4 g/dL (6.5-8.0); Triglycerides 74 mg/dL (<150)
[2024-06-03 17:28] LABS: Free T4 (Free Thyroxine) 1.05 ng/dL (0.71-1.85); Thyroid Stimulating Hormone 1.35 uIU/mL (0.32-4.0); Vitamin D 25-OH Total 37.4 ng/mL (>30)
== END 2024-06-03 14:24 | disposition home or self-care (01) ==
LOC: HO.LAB 14:23
PROVIDERS: PCP Internal Medicine; Visit Provider Internal Medicine
DX: R30.0 Dysuria (principal); E78.00 Pure hypercholesterolemia, unspecified; E55.9 Vitamin D deficiency, unspecified; D64.9 Anemia, unspecified; E03.9 Hypothyroidism, unspecified
CPT/HCPCS: 36415; 80053; 80061; 81003; 82306; 84439; 84443; 85025

== ENCOUNTER 2024-06-05 16:48 | Outpatient (AMB) | payer OTHER, SELFPAY ==
[2024-06-05 16:52] VITALS: BP 100/78; PULSE 67; O2SAT 96; BMI 27.2
--- NOTE | 2024-06-05 16:52 | A.OFFPC_ITS ---
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 Accompanied by: Self / Same As Patient Allergies No Known Allergies Allergy (Verified 06/05/24 17:03) Medication List - Last Reconciled 06/05/24 by Branden Recinos MD amlodipine 5 mg PO DAILY ascorbic acid (vitamin C) (Vitamin C) 500 mg PO DAILY cholecalciferol (vitamin D3) 25 mcg PO DAILY diclofenac sodium 50 mg PO Q12H PRN levothyroxine (Euthyrox) 125 mcg PO DAILY 90 days levothyroxine 125 mcg PO DAILY 90 days lisinopril 5 mg PO DAILY 90 days Magic Mouthwash Diphen/Lido/Antacid 1:1:1 10 mL PO QID multivitamin with folic acid 400 mcg (Daily-Irena (with folic acid)) 1 tab PO DAILY pantoprazole 40 mg PO Q12H sildenafil 50 mg PO DAILY PRN Tobacco use date assessed: 06/05/24 Dental Screening Dental Screen Date: 06/05/24 Did you have a dental visit in the last 12 months?: Yes Did you have a dental problem in the last 6 months where you did not have access to dental care?: No Was dental information given to patient?: Patient has dentist HPI HTN, hypothyroidism, DIMITRI, OA, GERD HPI Details Patient comes in today for his follow up visit States that he had EGD done with Dr. Flores a couple of weeks ago and was reportedly advised to take Pantoprazole BID but he recently read up on the possible side effects and problems that may occur from prolonged PPI use and is concerned about having to take this for a long time States that he is still experiencing recurrent symptoms of dysphagia He has a follow up appointment with Dr. Flores coming up in a couple of weeks and plans to discuss with him if there are any surgical alternatives so he does not have to keep taking the Rx for a long time Adds that he has been experiencing recurrent right shoulder pain for a couple of months now and is requesting for a referral to [facility] for physical therapy States that he called up [facility] a few days ago as it was very close to where he lives but was advised that he will need a referral from his PCP first before they can schedule him for physical therapy Recalls that he tried to prop himself up with some pillows behind his right upper back / right shoulder area when he went to sleep one night about 2 months ago and woke up the next day with increased pain in his right shoulder, which went on for a few days before gradually subsiding but his shoulder has continued to act up on and off ever since then States that he has also been experiencing frequent symptoms of what he feels are due to incomplete emptying of his bladder, as he would often urinate for only a short period of time and even though he still feels the presence of urine in his bladder, he is unable to continue urinating Notes that he would then have to keep going to the bathroom repeatedly for the next several minutes just to be able to finally completely empty out his bladder and that this has been going on for a few months now He otherwise denies any dysuria or nocturia He denies any headaches or dizziness Denies any chest pains, no increase SOB No nausea/vomiting, no abdominal pain No change in bowel habits noted He had his follow up labs done a couple of days ago - to discuss his results [facility] Medical History Hiatal hernia Overweight (BMI 25.0-29.9) Anxiety Erosive esophagitis Insomnia Lumbar degenerative disc disease Obstructive sleep apnea Acquired hypothyroidism Benign essential hypertension Thyroid disease HTN (hypertension) Dysphagia Surgical History Hx of arthroscopic knee surgery History of endoscopy S/P right inguinal hernia repair (04/19/21) Hx of endoscopy History of colonoscopy Family History Father Throat cancer Tongue cancer Mother Family history of high blood pressure Family history of Alzheimer's disease Social History Housing: Apartment Alcohol intake: current Alcohol intake frequency: a few times a month Patient Tobacco Use Status: Former Tobacco user Tobacco use type: Cigarette e-Cigarette/Vaping Use: Never Used Second Hand Smoke Exposure: Yes Substance Use Type: Marijuana service: No Current occupational status: employed Cognitive needs: No Hearing needs: No Vision needs: Yes Questionnaire PHQ-9 Over the last 2 weeks, how often have you been bothered by any of the following problems? 1. Little interest or pleasure in doing things: not at all 2. Feeling down, depressed, or hopeless: not at all 3. Trouble falling or staying asleep, or sleeping too much: not at all 4. Feeling tired or having little energy: not at all 5. Poor appetite or overeating: not at all 6. Feeling bad about yourself - or that you are a failure or have let yourself or your family down: not at all 7. Trouble concentrating on things, such as reading the newspaper or watching television: not at all 8. Moving or speaking so slowly that other people could have noticed. Or the opposite - being so fidgety or restless that you have been moving around a lot more than usual: not at all 9. Thoughts that you would be better off or of hurting yourself in some way: not at all Total score: 0 Depression Screening Interpretation: Negative Depression Screening Done: Yes 60195 - PHQ-9 Billing: Yes Source: Developed by Drs. Edwin Fair, Diana Tuttle, Keenan Navarro and colleagues, with an educational chantel from [employer]. Thrive Questionnaire Date Thrive assessed: 06/05/24 I am a: Patient What is your living situation today?: I have a steady place to live Within the past 12 months, did the food you bought not last and you didn't have the money to get more?: Never true Within the past 12 months, did you worry whether your food would run out before you got money to buy more?: Never true Do you have trouble paying for medicines?: No Do you have trouble getting transportation to medical appointments?: No Do you have trouble paying your heating and electricity bill?: No Do you have trouble taking care of your child, family member or friend?: No Do you have trouble with day-to-day activities such as bathing, preparing meals, shopping, managing finances, etc.?: No Are you currently unemployed and looking for a job?: No Are you interested in more education?: No Please select the resources that you would like help with: None Currently or been in a relationship where the following occur: No concerns reported THRIVE Score: 0 AUDIT C Alcohol Use Questionnaire (AUDIT-C) 1. How often do you have a drink containing alcohol?: Monthly or less 2. How many drinks containing alcohol do you have on a typical day when you are drinking?: 1 or 2 Total Score: 1 Score Reviewed/Action Taken: Yes TREVIN-7 AMB Questionnaire TREVIN-7 Date TREVIN - 7 assessed: 06/05/24 Feeling nervous, anxious, or on edge: 0 = Not at all Not being able to stop or control worryin = Not at all Worrying too much about different things: 0 = Not at all Trouble relaxin = Not at all Being so restless that it is hard to sit still: 0 = Not at all Becoming easily annoyed or irritable: 0 = Not at all Feeling afraid as if something awful might happen: 0 = Not at all Total TREVIN-7 score (0-4 normal; 5-9 mild; 10-14 moderate; 15-21 severe): 0 Source: Developed by Drs. Edwin Fair, Diana Tuttle, Keenan Navarro and colleagues, with an educational chantel from [employer]. Review of Systems Const Denies chills, Denies fatigue, Denies fever(s) and Denies headache(s) ENT Reports dysphagia (mostly to solids - see HPI), Denies dizziness, Denies otalgia, Denies headache(s), Denies neck pain, Reports odynophagia (at times) and Denies sore throat Card Denies chest pain, Denies palpitations and Denies dyspnea Resp Denies cough, Denies dyspnea and Denies wheezing GI Denies abdominal pain, Denies constipation, Reports dysphagia (mostly to solids - see HPI), Denies heartburn, Denies diarrhea, Denies nausea, Reports odynophagia (at times) and Denies vomiting Reports oliguria (see HPI for details), Denies dysuria, Denies nocturia, Reports urinary frequency and Reports urinary hesitancy Musc Reports back pain (over the lower back, on and off), Reports arthralgias (right shoulder, on and off for the past couple of months) and Denies neck pain Skin/Breast Denies rash Neuro Denies dizziness and Denies headache(s) Endo Denies fatigue and Denies palpitations Aller/Immun Denies wheezing Physical exam (Primary Care) Vital Signs: Last Vital Signs Pulse 67 06/05/24 16:52 BP 100/78 06/05/24 16:52 Pulse Ox 96 06/05/24 16:52 Oxygen Delivery Method Room Air 06/05/24 16:52 BMI result Body Mass Index 27.2 Tobacco/Smoking Status: Tobacco use Status Tobacco use date assessed 06/05/24 06/05/24 16:58 Patient Tobacco Use Status Former Tobacco user 06/05/24 16:58 Tobacco use type Cigarette 06/05/24 16:58 e-Cigarette/Vaping Use Never Used 06/05/24 16:58 PHQ-9: PHQ-9 Score PHQ-9: Total score 0 06/05/24 17:05 Depression Screening Interpretation: Negative Thrive Assessment: Date of Thrive Assessment Date Thrive assessed 06/05/24 06/05/24 16:58 Currently or been in a relationship where the following occur: No concerns reported Const General: no acute distress and alert HENMT Ears: TM's normal bilaterally and EAC's normal Throat: Yes posterior oropharynx normal and Yes tonsils normal (no TP congestion) Neck Neck: Yes no lymphadenopathy and Yes supple Thyroid: Thyroid normal Resp Auscultation: clear to auscultation bilaterally, no rales and no wheezes Cardio Rate: regular rate Rhythm: regular rhythm Heart sounds: no murmurs GI Palpation (GI): Soft to palpation and nontender Auscultation: normal bowel sounds General: Yes no CVA tenderness Back/Spine/Pelvis Back: no CVA tenderness Thoracic/Lumbar Spine: lumbar spinal tenderness (mild) Skin Rashes: no rashes Extrem General: Yes no clubbing, cyanosis or edema Right upper extremity: shoulder/upper arm Details: tenderness Location: of the A-C joint and of the scapula; no swelling Right lower extremity: knee Details: tenderness and crepitus; no swelling Results Reviewed Results Reviewed: Laboratory Tests 06/03/24 14:50 WBC 7.8 Hgb 15.2 Hct 46.6 Plt Count 333 Sodium 143 Potassium 4.1 Creatinine 0.90 Estimated GFR > 60 Fasting Glucose 99 Calcium 9.5 AST 16 ALT 17 Triglycerides 74 Cholesterol 143 LDL Cholesterol, Calc 92 HDL Cholesterol 37 L 25-OH Vitamin D Total 37.4 TSH 1.35 Free T4 1.05 Ur Specific Superior 1.020 Urine Protein Negative Urine Glucose (UA) Negative Urine Blood Negative Urine Nitrite Negative Assessment and Plan Assessment & Plan (1) Benign essential hypertension: Code(s): I10 - Essential (primary) hypertension Plan: Results of his labs done a couple of days ago reviewed and discussed with patient Reinforced low sodium diet - goal is systolic BP of 120 mm or less Continue Amlodipine 5 mg QD and Lisinopril 5 mg QD Will have him recheck his labs in 6 months for follow up (2) Acquired hypothyroidism: Code(s): E03.9 - Hypothyroidism, unspecified Plan: His TFTs have remained normal on his recent labs Continue Levothyroxine 125 mcg QD Will recheck his TFTs and labs in 6 month for follow up (3) Obstructive sleep apnea: Comment: uses cpap Code(s): G47.33 - Obstructive sleep apnea (adult) (pediatric) Plan: He was using his CPAP device when sleeping at night regularly until a few months ago; is now using a BiPAP device but is still having problems tolerating the device when sleeping Follow up with sleep medicine at [facility] as scheduled (4) Erosive esophagitis: Code(s): K22.10 - Ulcer of esophagus without bleeding Plan: Dietary restrictions reinforced S/P repeat EGD a couple of weeks ago - findings (+) for gastritis, duodenitis, erosive esophagitis, hiatal hernia and Schatzki's ring Continue Pantoprazole 40 mg BID Follow up with GI as scheduled - have advised patient to discuss his concerns regarding his meds as well as alternative Tx options and surgical options if appropiriate (5) Osteoarthritis of right knee: Code(s): M17.11 - Unilateral primary osteoarthritis, right knee Qualifiers: Osteoarthritis type: primary Qualified Code(s): M17.11 - Unilateral primary osteoarthritis, right knee Plan: He was seen by [facility] a few months ago and had viscosupplementation in his right knee, which he states did not really help much He continues to experience frequent knee pain but states that the pain is mostly manageable lately Right knee x-rays done last year revealed (+) moderate narrowing medial knee joint compartment with mild osteophytes. No erosive changes; (+) narrowing of the lateral patellofemoral joint and spurring of the quadriceps insertion patella Follow up with orthopedics at [facility] as scheduled (6) Lumbar degenerative disc disease: Code(s): M51.36 - Other intervertebral disc degeneration, lumbar region Plan: Reinforced activity and weight-lifting restrictions He was diagnosed with SI joint dysfunction/syndrome and is currently debating on available treatment options States that his low back pain was relieved temporarily with injections a few months ago Follow up with pain management as scheduled (7) Right shoulder pain: Code(s): M25.511 - Pain in right shoulder Qualifiers: Chronicity: acute Qualified Code(s): M25.511 - Pain in right shoulder Plan: Patient states that his right shoulder has been bothering him for a couple of weeks now - see HPI Per request, will refer him to [facility] in [place] for physical therapy evaluation and management (8) Erectile dysfunction: Code(s): N52.9 - Male erectile dysfunction, unspecified Qualifiers: Erectile dysfunction type: unspecified Qualified Code(s): N52.9 - Male erectile dysfunction, unspecified Plan: Continue Viagra 50 ng QD PRN (9) Benign prostatic hyperplasia with incomplete bladder emptying: Code(s): N40.1 - Benign prostatic hyperplasia with lower urinary tract symptoms; R39.14 - Feeling of incomplete bladder emptying Plan: Have offered to start patient on a trial of alpha tapan and/or Finasteride but he opted to go see urology first for further evaluation Referral to urology done (10) Insomnia: Code(s): G47.00 - Insomnia, unspecified Qualifiers: Insomnia type: unspecified Qualified Code(s): G47.00 - Insomnia, unspecified Plan: Sleep hygiene reinforced He was started on a trial of Mirtazapine a few months ago but could not tolerate Rx - Rx discontinued Continue Zolpidem 10 mg Q HS PRN He has been taking 1/2 tablet of Clonazepam at times to help him sleep - is advised again that it is not a good idea to continue taking Clonazepam for sleep as is not indicated for sleep and can be habit-forming if taken regularly (11) Overweight (BMI 25.0-29.9): Code(s): E66.3 - Overweight Plan: Reinforced diet/exercise as tolerated/lose weight Plan Follow up in 6 months Orders: Orders Lipid Panel 6 Months E78.00 - Pure hypercholesterolemia, unspecified Complete Blood Count Auto Diff 6 Months D64.9 - Anemia, unspecified UA CC w/rflx Micro + Cult 6 Months R30.0 - Dysuria PT Evaluation and Treatment Today M25.511 - Pain in right shoulder Comprehensive [place]. Panel Fast 6 Months E78.00 - Pure hypercholesterolemia, unspecified Free T4 (Free Thyroxine) 6 Months E03.9 - Hypothyroidism, unspecified Thyroid Stimulating Hormone 6 Months E03.9 - Hypothyroidism, unspecified Vitamin D 25-OH Total 6 Months E55.9 - Vitamin D deficiency, unspecified Vitamin B12 and Folate 6 Months E53.8 - Deficiency of other specified B group vitamins Referrals Urology Referral N40.1 - Benign prostatic hyperplasia with lower urinary tract symptoms, R39.14 - Feeling of incomplete bladder emptying Coding Level of Care Code Est Pt Level 4 (73372) Complex EM visit Add On G2211 Diagnoses Benign essential hypertension I10 Acquired hypothyroidism E03.9 Obstructive sleep apnea G47.33 Erosive esophagitis K22.10 Primary osteoarthritis of right knee M17.11 Osteoarthritis type: primary Lumbar degenerative disc disease M51.36 Acute pain of right shoulder M25.511 Chronicity: acute Erectile dysfunction, unspecified erectile dysfunction type N52.9 Erectile dysfunction type: unspecified Benign prostatic hyperplasia with incomplete bladder emptying N40.1; R39.14 Insomnia, unspecified type G47.00 Insomnia type: unspecified Overweight (BMI 25.0-29.9) E66.3
== END 2024-06-05 17:15 | disposition home or self-care (01) ==
PROVIDERS: PCP Internal Medicine; Visit Provider Internal Medicine
DX: I10 Essential (primary) hypertension (principal); E03.9 Hypothyroidism, unspecified; G47.33 Obstructive sleep apnea (adult) (pediatric); K22.10 Ulcer of esophagus without bleeding; M17.11 Unilateral primary osteoarthritis, right knee; M51.36 Other intervertebral disc degeneration, lumbar region; M25.511 Pain in right shoulder; N52.9 Male erectile dysfunction, unspecified; N40.1 Benign prostatic hyperplasia with lower urinary tract symptoms; R39.14 Feeling of incomplete bladder emptying; G47.00 Insomnia, unspecified; E66.3 Overweight
CPT/HCPCS: 99214

== ENCOUNTER 2024-06-17 15:00 | Outpatient (AMB) | payer OTHER, SELFPAY ==
[2024-06-17 15:02] VITALS: BP 121/78; PULSE 68; BMI 27.7
--- NOTE | 2024-06-17 15:02 | A.OFFVIS_ITS ---
Vital Signs 06/17/24 15:02 Height 5 ft 11 in Weight 198 lb 6.656 oz BMI 27.7 BP 121/78 Blood Pressure Location Lt brachial Position Sitting Pulse 68 Intake Visit Reasons: egd follow up Intake Note: Alberto presents in the office as a follow up EGD. CC: HE states that he is not having any concerns at this time. Biochemistry Specialist Required: No Allergies No Known Allergies Allergy (Verified 06/17/24 15:07) HPI HPI egd follow up: Details: 63 yr old m being seen for f/u RECAP: Seen for dysphagia in the past food goes to esophagus and hangs around can hurt going down going on for 6 yrs, gradually getting worse has been taking omeprazole, had been helping but not that much any more only with solids, ok with liquids denies heartburn no constipation, diarrhea no rectal bleeding, no melena colonoscopy 5 yrs ago, [place] and it was normal BA swallow- 12/25/2019--small hiatal hernia, mild GERD EGD --thick schatzki ring, dilated with balloon, LES and UES, 3 cm hital hernia BX: moderate inactive inflammation of stomach, esophagus nml, neg for h pylori Repeat EGD with dilation : 11/2022 --schatzki ring noted again, dilated at LES and UES hiatal hernia- 4 cm colonoscopy 08/2023 [place] diverticulosis small int hemorrhoids EGD: 04/2024- schatzki ring, thick fibrous, disrupted with balloon, esophagitis noted INTERIM: swallowing is good as long as takes PPI no other issues, no dysphagia no chest pain no nausea or vomiting no melena, or rectal bleeding not taking MV EXAM: GENERAL: The patient is well developed and nontoxic. VITAL SIGNS:see workflow HEENT: Nonicteric sclerae, PERRLA, EOMI. Oropharynx clear. Moist mucous membranes. Conjunctivae appear well perfused. No thyroid mass. CHEST: Chest wall is nontender. HEART: Regular rate and rhythm without murmurs. LUNGS: Clear to auscultation bilaterally. ABDOMEN: Soft, positive bowel sounds, nontender, no organomegaly.no flank tenderness SKIN: No rash, no excessive bruising, petechiae, or purpura. NEUROLOGIC: Cranial nerves II-XII intact without motor/sensory deficit. Psych: normal affect Assessment & Plan (1) Dysphagia: due to schatzki ring and esophagitis, and hiatal hernia PLAN: 1/ cont with PPI pantoprazole --taking infreq advised to take daily --he is not sure about taking indefinitely 2/ rept EGD as needed, maybe 4-6 months to see how it looks 3/ discussed surgical options again incl fundoplication and hernia repair, will get ba swallow first and based on that can move forward with surgical referral 4/ periodic check b12, mag, iron studies, Vit D--is taking Vit D and MV f/u 12 month or earlier if needed PFSH Medical History Hiatal hernia Overweight (BMI 25.0-29.9) Anxiety Erosive esophagitis Insomnia Lumbar degenerative disc disease Obstructive sleep apnea Acquired hypothyroidism Benign essential hypertension Thyroid disease HTN (hypertension) Dysphagia Surgical History Hx of arthroscopic knee surgery History of endoscopy S/P right inguinal hernia repair (04/19/21) Hx of endoscopy History of colonoscopy Family History Father Throat cancer Tongue cancer Mother Family history of high blood pressure Family history of Alzheimer's disease Social History Housing: Apartment Alcohol intake: current Alcohol intake frequency: a few times a month Patient Tobacco Use Status: Former Tobacco user Tobacco use type: Cigarette e-Cigarette/Vaping Use: Never Used Second Hand Smoke Exposure: Yes Substance Use Type: Marijuana service: No Current occupational status: employed Cognitive needs: No Hearing needs: No Vision needs: Yes Physical Exam Vital Signs: BMI result Body Mass Index 27.7 Assessment & Plan Assessment & Plan (1) GERD (gastroesophageal reflux disease): Code(s): K21.9 - Gastro-esophageal reflux disease without esophagitis Category: Medical Plan: see above Orders: Orders FL barium swallow Today R13.10 - Dysphagia, unspecified Coding Level of Care Code Est Pt Level 3 (07836) Diagnoses GERD (gastroesophageal reflux disease) K21.9
== END 2024-06-17 15:20 | disposition home or self-care (01) ==
PROVIDERS: PCP Internal Medicine; Visit Provider Internal Medicine Gastroenterology
DX: K21.9 Gastro-esophageal reflux disease without esophagitis (principal)
CPT/HCPCS: 99213

== ENCOUNTER → 2024-06-17 15:00 | Outpatient (BNVA) | payer OTHER, SELFPAY | PROVIDERS: PCP Internal Medicine; Visit Provider Internal Medicine Gastroenterology ==

== ENCOUNTER 2024-09-04 08:58 | Outpatient (REF) | payer OTHER, SELFPAY ==
--- NOTE | ~2024-09-04 | FL_ITS ---
EXAMINATION: XR FLUOROSCOPY UPPER GI WITH AIR CLINICAL INFORMATION: Dysphagia. Hiatal hernia. History of endoscopic dilation of the esophagus. COMPARISON: Barium swallows 2020 TECHNIQUE: Fluoroscopic air contrast upper GI examination was performed utilizing standard techniques with thin and thick barium and effervescent granules. Numerous spot images were obtained. FINDINGS: Lateral cine images of the oropharynx and hypopharynx demonstrate normal swallow mechanism with normal epiglottic inversion and soft palate elevation. No tracheal penetration, glottic or subglottic aspiration identified. No nasopharyngeal reflux present. Hypopharyngeal structures appear normal without evidence of mass or diverticulum. There is mild to moderate cricopharyngeal achalasia present. Dual and single contrast images of the esophagus demonstrate a mildly patulous esophagus with a normal contour. There is a mild granular appearance of the esophageal mucosa suggestive of esophagitis. No evidence of stricture, mass, or ulcerations identified. The patient swallowed the barium tablet without any difficulty. The tablet passed freely into the stomach without any evidence of stasis. There is to and fro motion of the barium column with nonpropulsive tertiary contractions noted throughout the esophagus. A small to moderate sized I hiatal hernia is present. No significant gastroesophageal reflux was seen during the course of the examination and on reflux views. Dual contrast and single contrast images of the stomach demonstrated a normal contour. There are multiple small foci of contrast pooling in the body and fundus of the stomach that may represent small mucosal ulcerations. No masses are present. Contrast freely passed into the gastric antrum and duodenal bulb without delay. Single and air-contrast images of the duodenal bulb demonstrate no abnormality. The duodenal sweep has a normal appearance, course, and mucosal fold appearance. The imaged proximal jejunum has a normal fold pattern and caliber. FLUOROSCOPY TIME: 4 minutes 28 seconds Number of Spot Images: 11 Number of Cine: 13 DOSE AREA PRODUCT: 2935 uGy-m2 (microgray-meter squared) FL/FL barium swallow IMPRESSION: 1. Mild to moderate cricopharyngeal achalasia. 2. Mildly patulous esophagus with severely disorganized esophageal peristalsis consistent with esophageal dysmotility. 3. Granular appearance of the esophageal mucosa suggestive of esophagitis. 4. Small to moderate-sized type I hiatal hernia. 5. Multiple small foci of contrast pooling in the body and fundus the stomach that may represent small mucosal ulcerations. Recommend correlation with EGD. This procedure was performed by Hunter Patricio PA-C, and supervised by Dr. Sniger Electronically signed by: Harvey Singer MD 09/06/2024 03:57 PM [facility]
== END 2024-09-04 08:59 | disposition home or self-care (01) ==
LOC: HO.XRAY 08:58
PROVIDERS: PCP Internal Medicine; Visit Provider Internal Medicine Gastroenterology
DX: R13.10 Dysphagia, unspecified (principal)
CPT/HCPCS: 74220

== ENCOUNTER → 2024-09-04 09:00 | Outpatient (BNV) | payer OTHER, SELFPAY | PROVIDERS: PCP Internal Medicine; Visit Provider Physician Assistant Surgical | DX: K44.0 Diaphragmatic hernia with obstruction, without gangrene (principal); K22.10 Ulcer of esophagus without bleeding | CPT/HCPCS: 74246 ==

== ENCOUNTER 2024-10-14 14:53 | Outpatient (AMB) | payer OTHER, SELFPAY ==
--- NOTE | 2024-10-14 15:03 | MHC.OFFVIS ---
Vital Signs 10/14/24 15:06 Height 5 ft 11 in Weight 200 lb BMI 27.9 BP 153/90 H Blood Pressure Location Lt brachial Position Sitting Pulse 81 Intake Visit Reasons: f/u BA swallow Intake Note: Alberto presents in the office as a follow up to his BA swallow. CC: He states that he would like to find out what happened after BA swallow. Does he need to keep drinking the medication? HE states iwthout the medication he has issues with his swallowing. Allergies No Known Allergies Allergy (Verified 10/14/24 15:22) HPI HPI f/u BA swallow: Details: 64 yr old m being seen for f/u RECAP: Seen for dysphagia in the past food goes to esophagus and hangs around can hurt going down going on for 6 yrs, gradually getting worse has been taking omeprazole, had been helping but not that much any more only with solids, ok with liquids denies heartburn no constipation, diarrhea no rectal bleeding, no melena colonoscopy 5 yrs ago, [place] and it was normal BA swallow- 12/25/2019--small hiatal hernia, mild GERD EGD --thick schatzki ring, dilated with balloon, LES and UES, 3 cm hital hernia BX: moderate inactive inflammation of stomach, esophagus nml, neg for h pylori Repeat EGD with dilation : 11/2022 --schatzki ring noted again, dilated at LES and UES hiatal hernia- 4 cm colonoscopy 08/2023 [facility]es diverticulosis small int hemorrhoids EGD: 04/2024- schatzki ring, thick fibrous, disrupted with balloon, esophagitis noted ba swallow- 09/17 INTERIM: swallowing is good as long as takes PPI no other issues, no dysphagia no chest pain no nausea or vomiting no melena, or rectal bleeding not taking MV EXAM: GENERAL: The patient is well developed and nontoxic. VITAL SIGNS:see workflow HEENT: Nonicteric sclerae, PERRLA, EOMI. Oropharynx clear. Moist mucous membranes. Conjunctivae appear well perfused. No thyroid mass. CHEST: Chest wall is nontender. HEART: Regular rate and rhythm without murmurs. LUNGS: Clear to auscultation bilaterally. ABDOMEN: Soft, positive bowel sounds, nontender, no organomegaly.no flank tenderness SKIN: No rash, no excessive bruising, petechiae, or purpura. NEUROLOGIC: Cranial nerves II-XII intact without motor/sensory deficit. Psych: normal affect Assessment & Plan (1) Dysphagia: due to schatzki ring and esophagitis, and hiatal hernia PLAN: 1/ cont with PPI pantoprazole --he wants to try to get off, will refer Dr Powell for eval for hernia repair, maybe partial wrap 2/periodic check b12, mag, iron studies, Vit D--is taking Vit D and MV f/u 6 month or earlier if needed PFSH Medical History Hiatal hernia Overweight (BMI 25.0-29.9) Anxiety Erosive esophagitis Insomnia Lumbar degenerative disc disease Obstructive sleep apnea Acquired hypothyroidism Benign essential hypertension Thyroid disease HTN (hypertension) Dysphagia Surgical History Hx of arthroscopic knee surgery History of endoscopy S/P right inguinal hernia repair (04/19/21) Hx of endoscopy History of colonoscopy Family History Father Throat cancer Tongue cancer Mother Family history of high blood pressure Family history of Alzheimer's disease Social History Housing: Apartment Alcohol intake: current Alcohol intake frequency: a few times a month Patient Tobacco Use Status: Former Tobacco user Tobacco use type: Cigarette e-Cigarette/Vaping Use: Never Used Second Hand Smoke Exposure: Yes Substance Use Type: Marijuana service: No Current occupational status: employed Cognitive needs: No Hearing needs: No Vision needs: Yes Physical Exam Vital Signs: Last Vital Signs Pulse 81 10/14/24 15:06 BP 153/90 H 10/14/24 15:06 BMI result Body Mass Index 27.9 Assessment & Plan Assessment & Plan (1) GERD (gastroesophageal reflux disease): Code(s): K21.9 - Gastro-esophageal reflux disease without esophagitis Category: Medical Plan: as above Coding Level of Care Code Est Pt Level 3 (44519) Diagnoses GERD (gastroesophageal reflux disease) K21.9
[2024-10-14 15:06] VITALS: BP 153/90; PULSE 81; BMI 27.9
== END 2024-10-14 15:43 | disposition home or self-care (01) ==
PROVIDERS: PCP Internal Medicine; Visit Provider Internal Medicine Gastroenterology
DX: K21.9 Gastro-esophageal reflux disease without esophagitis (principal)
CPT/HCPCS: 99213

== ENCOUNTER 2024-12-23 17:09 | Outpatient (AMB) | payer OTHER, SELFPAY ==
--- NOTE | 2024-12-23 17:12 | A.OFFPC_ITS ---
Vital Signs 12/23/24 17:14 Height 5 ft 11 in Weight 197 lb BMI 27.5 BP 112/74 Blood Pressure Location Lt brachial Position Sitting Pulse 64 Pulse Source Pulse Oximeter Pulse Oximetry (%) 96 Oxygen Delivery Method Room Air Intake Visit Reasons: 6 MONTH Interface Designer Required: No Accompanied by: Self / Same As Patient Allergies No Known Allergies Allergy (Verified 12/23/24 17:50) Medication List - Last Reconciled 12/23/24 by Branden Recinos MD amlodipine 5 mg PO DAILY ascorbic acid (vitamin C) (Vitamin C) 500 mg PO DAILY cholecalciferol (vitamin D3) 25 mcg PO DAILY diclofenac sodium 50 mg PO Q12H PRN Euthyrox (levothyroxine) 125 mcg PO DAILY 90 days NS lisinopril 5 mg PO DAILY 90 days multivitamin with folic acid 400 mcg (Daily-Irena (with folic acid)) 1 tab PO DAILY pantoprazole 40 mg PO Q12H sildenafil 50 mg PO DAILY PRN Tobacco use date assessed: 12/23/24 Dental Screening Dental Screen Date: 12/23/24 Did you have a dental visit in the last 12 months?: No Did you have a dental problem in the last 6 months where you did not have access to dental care?: No Was dental information given to patient?: Patient has dentist HPI 6 MONTH HPI Details Patient comes in today for his follow up visit States that he has been experiencing increased pain over his bones and joints lately, especially over his lower back - thinks it is his SI joints that are presently bothering him He recently requested for a referral for PT and he is now scheduled with [facility] for physical therapy next week He is also currently requesting for a referral to see rheumatology for his joint pains States that because of his recurrent low back pain, he is also planning to file some FMLA papers for his employer to allow him to be able to take time off from work if he has to (intermittent leave) Patient states that he feels okay otherwise He denies any headaches or dizziness Denies any chest pains, no increased SOB No nausea/vomiting, no abdominal pain No change in bowel habits noted He was not able to get his follow up labs done prior to his appointment today - states that he will try to go and get these done [facility] Medical History Hiatal hernia Overweight (BMI 25.0-29.9) Anxiety Erosive esophagitis Insomnia Lumbar degenerative disc disease Obstructive sleep apnea Acquired hypothyroidism Benign essential hypertension Thyroid disease HTN (hypertension) Dysphagia Surgical History Hx of arthroscopic knee surgery History of endoscopy S/P right inguinal hernia repair (04/19/21) Hx of endoscopy History of colonoscopy Family History Father Throat cancer Tongue cancer Mother Family history of high blood pressure Family history of Alzheimer's disease Social History Housing: Apartment Alcohol intake: current Alcohol intake frequency: a few times a month Patient Tobacco Use Status: Former Tobacco user Tobacco use type: Cigarette e-Cigarette/Vaping Use: Never Used Second Hand Smoke Exposure: Yes Substance Use Type: Marijuana service: No Current occupational status: employed Cognitive needs: No Hearing needs: No Vision needs: Yes Questionnaire PHQ-9 Over the last 2 weeks, how often have you been bothered by any of the following problems? 1. Little interest or pleasure in doing things: not at all 2. Feeling down, depressed, or hopeless: not at all 3. Trouble falling or staying asleep, or sleeping too much: not at all 4. Feeling tired or having little energy: not at all 5. Poor appetite or overeating: not at all 6. Feeling bad about yourself - or that you are a failure or have let yourself or your family down: not at all 7. Trouble concentrating on things, such as reading the newspaper or watching television: not at all 8. Moving or speaking so slowly that other people could have noticed. Or the opposite - being so fidgety or restless that you have been moving around a lot more than usual: not at all 9. Thoughts that you would be better off or of hurting yourself in some way: not at all Total score: 0 Depression Screening Interpretation: Negative Depression Screening Done: Yes 48536 - PHQ-9 Billing: Yes Source: Developed by Drs. Edwin Fair, Diana Tuttle, Keenan Navarro and colleagues, with an educational chantel from [employer]. Thrive Questionnaire Date Thrive assessed: 12/23/24 I am a: Patient What is your living situation today?: I have a steady place to live Within the past 12 months, did the food you bought not last and you didn't have the money to get more?: Never true Within the past 12 months, did you worry whether your food would run out before you got money to buy more?: Never true Do you have trouble paying for medicines?: No Do you have trouble getting transportation to medical appointments?: No Do you have trouble paying your heating and electricity bill?: No Do you have trouble taking care of your child, family member or friend?: No Do you have trouble with day-to-day activities such as bathing, preparing meals, shopping, managing finances, etc.?: No Are you currently unemployed and looking for a job?: No Are you interested in more education?: No Please select the resources that you would like help with: None Currently or been in a relationship where the following occur: No concerns reported THRIVE Score: 0 AUDIT C Alcohol Use Questionnaire (AUDIT-C) 1. How often do you have a drink containing alcohol?: Monthly or less 2. How many drinks containing alcohol do you have on a typical day when you are drinking?: 1 or 2 3. How often do you have six or more drinks on one occasion?: Never Total Score: 1 Score Reviewed/Action Taken: Yes TREVIN-7 AMB Questionnaire TREVIN-7 Date TREVIN - 7 assessed: 12/23/24 Feeling nervous, anxious, or on edge: 0 = Not at all Not being able to stop or control worryin = Not at all Worrying too much about different things: 0 = Not at all Trouble relaxin = Not at all Being so restless that it is hard to sit still: 0 = Not at all Becoming easily annoyed or irritable: 0 = Not at all Feeling afraid as if something awful might happen: 0 = Not at all Total TREVIN-7 score (0-4 normal; 5-9 mild; 10-14 moderate; 15-21 severe): 0 Source: Developed by Drs. Edwin Fair, Keenan Gonzalez and colleagues, with an educational chantel from [employer]. Review of Systems Const Denies chills, Denies fatigue, Denies fever(s) and Denies headache(s) ENT Reports dysphagia (at times - mostly to solids), Denies dizziness, Denies otalgia, Denies headache(s), Denies neck pain, Reports odynophagia (at times) and Denies sore throat Card Denies chest pain, Denies palpitations and Denies dyspnea Resp Denies chest congestion, Denies cough and Denies dyspnea GI Denies abdominal pain, Denies constipation, Reports dysphagia (at times - mostly to solids), Denies excessive flatus, Denies heartburn, Denies diarrhea, Denies nausea, Reports odynophagia (at times) and Denies vomiting Reports oliguria (see HPI for details), Denies dysuria, Denies nocturia, Reports urinary frequency and Reports urinary hesitancy Musc Reports back pain (over the lower back, on and off), Reports arthralgias (right shoulder, on and off for the past few months) and Denies neck pain Skin/Breast Denies rash Neuro Denies dizziness and Denies headache(s) Endo Denies fatigue and Denies palpitations Physical exam (Primary Care) Vital Signs: Last Vital Signs Pulse 64 12/23/24 17:14 BP 112/74 12/23/24 17:14 Pulse Ox 96 12/23/24 17:14 Oxygen Delivery Method Room Air 12/23/24 17:14 BMI result Body Mass Index 27.5 Tobacco/Smoking Status: Tobacco use Status Tobacco use date assessed 12/23/24 12/23/24 17:18 Patient Tobacco Use Status Former Tobacco user 12/23/24 17:18 Tobacco use type Cigarette 12/23/24 17:18 e-Cigarette/Vaping Use Never Used 12/23/24 17:18 PHQ-9: PHQ-9 Score PHQ-9: Total score 0 12/23/24 17:51 Depression Screening Interpretation: Negative Thrive Assessment: Date of Thrive Assessment Date Thrive assessed 12/23/24 12/23/24 17:18 Currently or been in a relationship where the following occur: No concerns reported Const General: no acute distress and alert HENMT Ears: TM's normal bilaterally and EAC's normal Throat: Yes posterior oropharynx normal and Yes tonsils normal (no TP congestion) Neck Neck: Yes no lymphadenopathy and Yes supple Thyroid: Thyroid normal Resp Auscultation: clear to auscultation bilaterally, no rales and no wheezes Cardio Rate: regular rate Rhythm: regular rhythm Heart sounds: no murmurs GI Palpation (GI): Soft to palpation and nontender Auscultation: normal bowel sounds General: Yes no CVA tenderness Back/Spine/Pelvis Back: no CVA tenderness Thoracic/Lumbar Spine: lumbar spinal tenderness (mild) Skin Rashes: no rashes Extrem General: Yes no clubbing, cyanosis or edema Right upper extremity: shoulder/upper arm Details: tenderness Location: of the A-C joint and of the scapula; no swelling Right lower extremity: knee Details: tenderness and crepitus; no swelling Coding Level of Care Code Est Pt Level 4 (66418) Diagnoses Benign essential hypertension I10 Acquired hypothyroidism E03.9 Obstructive sleep apnea G47.33 Erosive esophagitis K22.10 Primary osteoarthritis of right knee M17.11 Osteoarthritis type: primary Degeneration of intervertebral disc of lumbar region with discogenic back pain M51.360 Disc-related pain type: discogenic back pain only Acute pain of right shoulder M25.511 Chronicity: acute Erectile dysfunction, unspecified erectile dysfunction type N52.9 Erectile dysfunction type: unspecified Benign prostatic hyperplasia with incomplete bladder emptying N40.1; R39.14 Insomnia, unspecified type G47.00 Insomnia type: unspecified Overweight (BMI 25.0-29.9) E66.3 Additional Codes PHQ-9 - 21360 - PHQ-9 Billing: Yes ([id number]) Assessment & Plan Assessment & Plan (1) Benign essential hypertension: Code(s): I10 - Essential (primary) hypertension Category: Medical Plan: Reinforced low sodium diet - goal is systolic BP of 120 mm or less Continue Amlodipine 5 mg QD and Lisinopril 5 mg QD He is instructed to go and get his previously ordered labs done YARY (2) Acquired hypothyroidism: Code(s): E03.9 - Hypothyroidism, unspecified Category: Medical Plan: Continue Levothyroxine 125 mcg QD Will recheck his TFTs and labs YARY for follow up (3) Obstructive sleep apnea: Comment: uses cpap Code(s): G47.33 - Obstructive sleep apnea (adult) (pediatric) Category: Medical Plan: He was using his CPAP device when sleeping at night regularly until a few months ago; is now using a BiPAP device but is still having problems tolerating the device when sleeping Follow up with sleep medicine at [facility] as scheduled (4) Erosive esophagitis: Code(s): K22.10 - Ulcer of esophagus without bleeding Category: Medical Plan: Dietary restrictions reinforced S/P repeat EGD last year (2023) - findings (+) for gastritis, duodenitis, erosive esophagitis, hiatal hernia and Schatzki's ring Continue Pantoprazole 40 mg BID Follow up with GI as scheduled (5) Osteoarthritis of right knee: Code(s): M17.11 - Unilateral primary osteoarthritis, right knee Category: Medical Qualifiers: Osteoarthritis type: primary Qualified Code(s): M17.11 - Unilateral primary osteoarthritis, right knee Plan: He was seen by [facility] a few months ago and had viscosupplementation in his right knee, which he states did not really help much He continues to experience frequent knee pain but states that the pain is mostly manageable lately Right knee x-rays done last year revealed (+) moderate narrowing medial knee joint compartment with mild osteophytes. No erosive changes; (+) narrowing of the lateral patellofemoral joint and spurring of the quadriceps insertion patella Follow up with orthopedics at [facility] as scheduled (6) Lumbar degenerative disc disease: Code(s): M51.36 - Other intervertebral disc degeneration, lumbar region Category: Medical Qualifiers: Disc-related pain type: discogenic back pain only Qualified Code(s): M51.360 - Other intervertebral disc degeneration, lumbar region with discogenic back pain only Plan: Reinforced activity and weight-lifting restrictions He was diagnosed with SI joint dysfunction/syndrome and is currently debating on available treatment options States that his low back pain was relieved temporarily with injections last year Follow up with pain management as scheduled (7) Right shoulder pain: Code(s): M25.511 - Pain in right shoulder Category: Medical Qualifiers: Chronicity: acute Qualified Code(s): M25.511 - Pain in right shoulder Plan: His right shoulder has been bothering him for a while and he requested then for a referral for PT He is now scheduled with [facility] in [place] for physical therapy evaluation and management Per request, will refer him to rheumatology for further evaluation and management of his joint pains Will also add a few other labs for him to do together with his regular labs for arthralgia work ups (8) Erectile dysfunction: Code(s): N52.9 - Male erectile dysfunction, unspecified Category: Medical Qualifiers: Erectile dysfunction type: unspecified Qualified Code(s): N52.9 - Male erectile dysfunction, unspecified Plan: Continue Viagra 50 mg QD PRN as instructed (9) Benign prostatic hyperplasia with incomplete bladder emptying: Code(s): N40.1 - Benign prostatic hyperplasia with lower urinary tract symptoms; R39.14 - Feeling of incomplete bladder emptying Category: Medical Plan: Follow up with urology as scheduled (10) Insomnia: Code(s): G47.00 - Insomnia, unspecified Category: Medical Qualifiers: Insomnia type: unspecified Qualified Code(s): G47.00 - Insomnia, unspecified Plan: Sleep hygiene reinforced He was started on a trial of Mirtazapine last year but could not tolerate Rx and Rx was discontinued Continue Zolpidem 10 mg Q HS PRN He has been taking 1/2 tablet of Clonazepam at times to help him sleep - he has been advised again that it is not a good idea to continue taking Clonazepam for sleep as is not indicated for sleep and can be habit-forming if taken regularly (11) Overweight (BMI 25.0-29.9): Code(s): E66.3 - Overweight Category: Medical Plan: Reinforced diet/exercise as tolerated/lose weight Plan Follow up in 6 months Orders: Orders NICOLLE Reflex Titer and Pattern 12/23/24 M25.50 - Pain in unspecified joint Rheumatoid Factor 12/23/24 M25.50 - Pain in unspecified joint C Reactive Protein 12/23/24 M25.50 - Pain in unspecified joint Erythrocyte Sedimentation Rate 12/23/24 M25.50 - Pain in unspecified joint, M79.7 - Fibromyalgia Referrals Rheumatology Referral M25.50 - Pain in unspecified joint
[2024-12-23 17:14] VITALS: BP 112/74; PULSE 64; O2SAT 96; BMI 27.5
--- OUTSIDE RECORDS SUMMARY | 2024-12-23 18:14 | XMS_ITS | Clinical Summary ---
Author Organization [employer] [facility] Address [address] [place] [address] [address] [place] [address] Care Team Providers Care Pomologist Name Role Phone Unavailable Primary Care Provider Unavailabl e Social History Tobacco Use Types Packs/Day Years Used Date Smoking Tobacco: Never Assessed Sex and Gender Information Value Date Recorded Sex Assigned at Male 07/25/2022 10:34 AM EDT Legal Sex Male 10:34 AM EDT Gender Identity Male 07/25/2022 10:34 AM EDT Sexual Orientation Straight 07/25/2022 10 :34 AM EDT Last Filed Vital Signs Vital Sign Reading Time Taken Comments Blood Pressure 161/93 03/24/2021 12:06 AM EDT Pulse 88 03/24/2021 12:06 AM EDT Temperature - - Respiratory Rate - - Oxygen Saturation - - Inhaled Oxygen Concentration - - Weight 92.3 kg (203 lb 6.4 oz) 03/24/2021 12:06 AM EDT Height 180.3 cm (5' 11 ) 03/24/2021 12:06 AM EDT Body Mass Index 28.37 03/24/2021 12:06 AM EDT Plan of Treatment Health Maintenance Due Date Last Done Comments CT Colonography 1962 Colonoscopy 1962 Colorectal Cancer Screening 1962 Depression Screening 1962 FIT DNA/Cologuard 1962 FIT 1962 FOBT 1962 Lipid Panel 1962 Sigmoidoscopy 1962 Alcohol/Substance Use Screening 1974 Tobacco Screening 1974 DTaP/Tdap/Td Vaccines (1 - Tdap) 1981 Pneumococcal Vaccine: 50+ Years (1 of 1 - PCV) 2012 Zoster Vaccines (1 of 2) 2012 COVID-19 Vaccine (2023-2 5 season) 2024 09/07/2021, 01/21/2021, 12/24/2020 Influenza Vaccine (#1) 2024 RSV Patients and Patients Aged 60 years or older (1 - 1-dose 75+ series) 2037 HIB Vaccines Aged Out No longer eligi ble based on patient's age to complete this topic HPV Vaccines Aged Out No longer eligi ble based on patient's age to complete this topic Hepatitis A Vaccines Aged Out No long er eligible based on patient's age to complete this topic Hepatitis B Vaccines Aged Out No long er eligible based on patient's age to complete this topic IPV Vaccines Aged Out No longer eligi ble based on patient's age to complete this topic Meningococcal Vaccine Aged Out No mely gretel eligible based on patient's age to complete this topic Pneumococcal Vaccine: Pediatrics (0 to 5 Years) and At-Risk Patients (6 to 49) Years) Aged Out No longer eligible b ased on patient's age to complete this topic RSV under 20 months Aged Out No longe r eligible based on patient's age to complete this topic Rotavirus Vaccines Aged Out No longer eligible based on patient's age to complete this topic
--- OUTSIDE RECORDS SUMMARY | 2024-12-23 18:14 | XMS_ITS | Encounter Summary ---
Author Organization [employer] [facility] Address [address] [place] [id number] Care Team Providers Care Retread Supervisor Name Role Phone Unavailable Primary Care Provider Unavailabl e Encounter Details Date Type Department Care Team (Late st Contact Info) Description 01/30/2023 Abstract [place] [employer] [address] [place] [address] Mckenna Crocker MD [address] [place] [address] Social History Tobacco Use Types Packs/Day Years Used Date Smoking Tobacco: Never Assessed Sex and Gender Information Value Date Recorded Sex Assigned at Male 07/25/2022 10:34 AM EDT Legal Sex Male 10:34 AM EDT Gender Identity Male 07/25/2022 10:34 AM EDT Sexual Orientation Straight 07/25/2022 10 :34 AM EDT documented as of this encounter Plan of Treatment Not on file documented as of this encounter Visit Diagnoses Not on filedocumented in this encounter
== END 2024-12-23 18:06 | disposition home or self-care (01) ==
LOC: HO.HMCH 17:09
PROVIDERS: PCP Internal Medicine; Visit Provider Internal Medicine
DX: I10 Essential (primary) hypertension (principal); E03.9 Hypothyroidism, unspecified; G47.33 Obstructive sleep apnea (adult) (pediatric); K22.10 Ulcer of esophagus without bleeding; M17.11 Unilateral primary osteoarthritis, right knee; M51.360 Other intervertebral disc degeneration, lumbar region with discogenic back pain only; M25.511 Pain in right shoulder; N52.9 Male erectile dysfunction, unspecified; N40.1 Benign prostatic hyperplasia with lower urinary tract symptoms; R39.14 Feeling of incomplete bladder emptying; G47.00 Insomnia, unspecified; E66.3 Overweight

== ENCOUNTER → 2024-12-23 17:09 | Outpatient (BNVA) | payer OTHER, SELFPAY | PROVIDERS: PCP Internal Medicine; Visit Provider Internal Medicine | DX: I10 Essential (primary) hypertension (principal); E03.9 Hypothyroidism, unspecified; G47.33 Obstructive sleep apnea (adult) (pediatric); K22.10 Ulcer of esophagus without bleeding; M17.11 Unilateral primary osteoarthritis, right knee; M51.360 Other intervertebral disc degeneration, lumbar region with discogenic back pain only; M25.511 Pain in right shoulder; N52.9 Male erectile dysfunction, unspecified; N40.1 Benign prostatic hyperplasia with lower urinary tract symptoms; R39.14 Feeling of incomplete bladder emptying; G47.00 Insomnia, unspecified; E66.3 Overweight; Z79.899 Other long term (current) drug therapy | CPT/HCPCS: 96127 ==

== ENCOUNTER 2025-01-13 11:58 | Outpatient (REF) | payer OTHER, SELFPAY ==
--- OUTSIDE RECORDS SUMMARY | 2025-01-13 12:03 | XMS_ITS | Clinical Summary ---
Author Organization [facility] Address [address] [place] [address] [address] [place] [address] Care Team Providers Care Hunting Guide Name Role Phone Unavailable Primary Care Provider [...]
[2025-01-13 12:13] LABS: MANUAL DIFF FLAG NO
[2025-01-13 12:50] LABS: Basophils Absolute Auto 0.1 X10*3/uL (0.0-0.2); Basophils Percent Auto 0.9 % (0-2); Eosinophils Absolute Auto 0.2 X10*3/uL (0.0-0.4); Eosinophils Percent Auto 2.7 % (0-4); Hematocrit 48.4 % (42.0-52.0); Hemoglobin 15.7 g/dl (14.0-18.0); Imm Gran Abs Auto 0.03 X10*3/uL (0.00-0.03); Imm Gran Pct Auto 0.4 % (0.0-0.4); Lymphocytes Absolute Auto 2.1 X10*3/uL (1.2-4.9); Lymphocytes Percent Auto 26.8 % (20-40); Mean Corpuscular HGB Conc 32.4 g/dl (31.0-36.0); Mean Corpuscular Hemoglobin 29.1 pg (27.0-33.0); Mean Corpuscular Volume 89.6 fL (80.0-98.0); Mean Platelet Volume 9.6 fL (9.4-12.4); Monocytes Absolute Auto 0.6 X10*3/uL (0.1-1.2); Neutrophils Absolute Auto 4.7 x10*3/uL (2.0-8.3); Neutrophils Percent Auto 61.2 % (45-73); Platelet Count 301 X10*3/uL (160-400); White Blood Count 7.6 X10*3/uL (4.8-10.8)
[2025-01-13 13:24] LABS: Appearance Urine Clear; Color Urine Yellow; Glucose Urine UA Negative (Negative); Leukocyte Esterase Urine Negative (Negative); Nitrite Urine Negative (Negative); Urine Blood Negative (Negative); Urine Ketones Negative (Negative); Urine Protein Negative (Neg-Trace)
[2025-01-13 13:26] LABS: Alanine Aminotransferase 22 U/L (0-40); Albumin Level 4.3 g/dL (3.5-5.0); Alkaline Phosphatase 79 U/L (39-117); Anion Gap 13 (12-20); Aspartate Amino Transferase 23 U/L (5-37); Bilirubin Total 0.9 mg/dL (0.0-1.0); Blood Urea Nitrogen 17 mg/dL (9-16); C Reactive Protein 1.87 mg/dL (< or = 0.50); Calcium 9.5 mg/dL (8.4-10.2); Carbon Dioxide 28 mmol/L (22-29); Chloride 106 mmol/L (96-108); Cholesterol 162 mg/dL (<200); Estimated Glomerular Filt Rate > 60; Glucose Fasting 94 mg/dL (60-99); HDL Cholesterol 43 mg/dL (>40); LDL Cholesterol Calculated 100 mg/dL (<100); Potassium 4.1 mmol/L (3.3-5.1); Sodium 143 mmol/L (135-145); Total Protein 7.4 g/dL (6.5-8.0); Triglycerides 95 mg/dL (<150)
[2025-01-13 13:29] LABS: Erythrocyte Sedimentation Rate 8 MM/HR (0-15)
[2025-01-13 13:33] LABS: Rheumatoid Factor < 13.0 IU/mL (<15.0)
[2025-01-13 13:43] LABS: Free T4 (Free Thyroxine) 1.19 ng/dL (0.71-1.85); Thyroid Stimulating Hormone 1.99 uIU/mL (0.32-4.0)
[2025-01-13 13:54] LABS: Folate 15.6 ng/mL (> or = 4.0); Vitamin B12 > 2000 pg/mL (200-900)
[2025-01-15 11:54] LABS: Anti Nuclear Antibody Screen NEGATIVE (NEGATIVE)
== END 2025-01-13 11:59 | disposition home or self-care (01) ==
LOC: HO.LAB 11:58
PROVIDERS: PCP Internal Medicine; Visit Provider Internal Medicine
DX: M25.50 Pain in unspecified joint (principal); R30.0 Dysuria; E03.9 Hypothyroidism, unspecified; E53.8 Deficiency of other specified B group vitamins; M79.7 Fibromyalgia; E78.00 Pure hypercholesterolemia, unspecified; D64.9 Anemia, unspecified; E55.9 Vitamin D deficiency, unspecified
CPT/HCPCS: 36415; 80053; 80061; 81003; 82306; 82607; 82746; 84439; 84443; 85025; 85652; 86038; 86140; 86431

== ENCOUNTER 2025-03-11 14:17 | Outpatient (AMB) | payer OTHER, SELFPAY ==
--- NOTE | 2025-03-11 14:20 | A.OFFVIS_ITS ---
Intake Visit Reasons: BPH w/LUTS Intake Note: Patient is present for BPH W/LUTS Urology Medication:SILDENAFIL,VITAMIN C Antibiotic Allergy:NONE Blood Thinner:NONE Allergies No Known Allergies Allergy (Verified 12/23/24 17:50) HPI Comments Details: Alberto is a pleasant male. He is a patient of Dr. Recinos. He is seen for the following urologic issues - lower urinary tract symptoms - erectile dysfunction Lower urinary tract symptoms Progressive Urinary urge with weakness of stream Moderate bother No prior medications Trial daily tadalafil Erectile dysfunction Sildenafil p.r.n. We will see if response to daily tadalafil PFSH Medical History Hiatal hernia Overweight (BMI 25.0-29.9) Anxiety Erosive esophagitis Insomnia Lumbar degenerative disc disease Obstructive sleep apnea Acquired hypothyroidism Benign essential hypertension Thyroid disease HTN (hypertension) Dysphagia Surgical History Hx of arthroscopic knee surgery History of endoscopy S/P right inguinal hernia repair (04/19/21) Hx of endoscopy History of colonoscopy Family History Father Throat cancer Tongue cancer Mother Family history of high blood pressure Family history of Alzheimer's disease Social History Housing: Apartment Alcohol intake: current Alcohol intake frequency: a few times a month Patient Tobacco Use Status: Former Tobacco user Tobacco use type: Cigarette e-Cigarette/Vaping Use: Never Used Second Hand Smoke Exposure: Yes Substance Use Type: Marijuana service: No Current occupational status: employed Cognitive needs: No Hearing needs: No Vision needs: Yes Review of Systems Const Denies chills and Denies fever(s) Card Reports no additional complaints and Denies syncope Resp Denies cough GI Denies abdominal pain and Denies heartburn Reports as per HPI and Denies change in libido Neuro Denies syncope Psych Denies change in libido Endo Denies change in libido Physical Exam Const General: cooperative, healthy appearing, comfortable and no acute distress Orientation/consciousness: patient oriented x3 HEENT Face and sinus: Yes normal facial exam Mouth: moist mucous membranes Neck Neck: Yes normal visual inspection, Yes full ROM and Yes trachea midline Chest Chest palpation & inspection: normal inspection of the chest Resp Effort & Inspection: normal respiratory effort, able to speak in complete sentences and no respiratory distress GI Inspection: Yes normal to inspection Back/Spine/Pelvis Cervical Spine: normal cervical lordosis Thoracic/Lumbar Spine: thoracic and lumbar spine normal to inspection Skin General skin exam: no rashes or lesions noted Neuro General: patient oriented x3, gait normal, tone normal and moves all extremities Extrem General: Yes normal to inspection and Yes capillary refill normal Results AMB Urinalysis, Automated UA Leukoctes 0 Lissett/uL Last Edit by BEVERLEY Giles on 03/11/25 14:34 UA Nitrite Negative Last Edit by Manuel Wall CCM on 03/11/25 14:34 UA Urobilinogen 0.2 mg/dL Last Edit by Manuel Wall CCM on 03/11/25 14:3 4 UA Protein 0 mg/dL Last Edit by Manuel Wall CCM on 03/11/25 14:34 UA pH 6.0 Last Edit by Manuel Wall [facility] on 03/11/25 14:34 UA Blood 0 Rad/uL Last Edit by Manuel Wall CCM on 03/11/25 14:34 UA Specific [place] 1.020 Last Edit by BEVERLEY Giles on 03/11/25 14: 34 UA Ketone Negative Last Edit by Manuel Wall CCM on 03/11/25 14:34 UA Bilirubin 0 mg/dL Last Edit by Manuel Wall [facility] on 03/11/25 14:34 UA Glucose 0 mg/dL Last Edit by Manuel Wall [facility] on 03/11/25 14:34 Results Reviewed Results Reviewed: Laboratory Last Values Urine pH (Auto) 6.0 03/11/25 14:33 Specific [place] (Auto) 1.020 03/11/25 14:33 Urine Protein (Auto) 0 mg/dL 03/11/25 14:33 Glucose (UA)(Auto) 0 mg/dL 03/11/25 14:33 Urine Ketones (Auto) Negative 03/11/25 14:33 Urine Blood (Auto) 0 Rad/uL 03/11/25 14:33 Urine Nitrite (Auto) Negative 03/11/25 14:33 Urine Bilirubin (Auto) 0 mg/dL 03/11/25 14:33 Urine Urobilinogen (Auto) 0.2 mg/dL 03/11/25 14:33 Leukocyte Esterase (Auto) 0 Lissett/uL 03/11/25 14:33 Assessment & Plan Assessment & Plan (1) Benign prostatic hyperplasia with incomplete bladder emptying: Code(s): N40.1 - Benign prostatic hyperplasia with lower urinary tract symptoms; R39.14 - Feeling of incomplete bladder emptying Category: Medical (2) Erectile dysfunction: Code(s): N52.9 - Male erectile dysfunction, unspecified Category: Medical Qualifiers: Erectile dysfunction type: unspecified Qualified Code(s): N52.9 - Male erectile dysfunction, unspecified Plan Trial tadalafil Three-month follow-up Orders: Orders AMB Urinalysis Automated 03/11/25 Z13.9 - Encounter for screening, unspecified US bladder 03/11/25 N40.1 - Benign prostatic hyperplasia with lower urinary tract symptoms, R39.14 - Feeling of incomplete bladder emptying Medications: New tadalafil [id number] [facility] [id number] Member [id number] 5 mg PO DAILY 90 tabs 0RF 90 days N40.1 - Benign prostatic hyperplasia with lower urinary tract symptoms, R39.14 - Feeling of incomplete bladder emptying Patient Instructions: This note is constructed using voice recognition software. While every effort has been made to ensure accuracy commercial account manager errors may have been included. Imaging studies, laboratory and physical exam results were discussed and reviewed in detail. No major barriers to patient understanding were identified. An opportunity to ask questions regarding the treatment plan was provided. All questions were answered. The patient expressed understanding and agreement with the above treatment plan. The patient is aware they should contact our office by phone for worsening of their current condition or the appearance of new urologic symptoms. Compliance is encouraged with any medications and followup testing that is ordered. It is a privilege to participate in the urologic care of your patient. If you have any questions or concerns regarding treatment for the above conditions, or other urologic issues, please do not hesitate to contact me. The office telephone contact is [phone]. Sincerely, Dr Jose Eduardo Lindo MD, [facility] - Urology Compassionate Specialist Care for the Genitourinary System Coding Level of Care Code New Pt Level 4 (66713) Diagnoses Benign prostatic hyperplasia with incomplete bladder emptying N40.1; R39.14 Erectile dysfunction, unspecified erectile dysfunction type N52.9 Erectile dysfunction type: unspecified
--- OUTSIDE RECORDS SUMMARY | 2025-03-11 16:31 | XMS_ITS | Encounter Summary ---
Author Organization [facility] [facility] Address [address] [place] [address] Care Team Providers Care Organizational Effectiveness Consultant Name Role Phone Unavailable Primary Care Provider Unavailabl e Encounter Details Date Type Department Care Team (Late st Contact Info) Description 01/30/2023 Abstract [facility] Information Management [address] [place] [address] Mckenna Crocker MD [address] [place] [address] Social History Tobacco Use Types Packs/Day Years [...]
== END 2025-03-11 15:04 | disposition home or self-care (01) ==
LOC: HO.HUSH 14:18
PROVIDERS: PCP Internal Medicine; Visit Provider Urology
DX: Z13.9 Encounter for screening, unspecified (principal)

== ENCOUNTER → 2025-03-11 14:17 | Outpatient (BNVA) | payer OTHER, SELFPAY | PROVIDERS: PCP Internal Medicine; Visit Provider Urology | DX: N40.1 Benign prostatic hyperplasia with lower urinary tract symptoms (principal) | CPT/HCPCS: 81003 ==

== ENCOUNTER 2025-05-06 14:00 | Outpatient (AMB) | payer OTHER, SELFPAY ==
--- NOTE | 2025-05-06 14:01 | MHC.OFFVIS ---
Vital Signs 05/06/25 14:07 Height 5 ft 11 in Weight 200 lb BMI 27.9 BP 164/99 H Blood Pressure Location Rt brachial Position Sitting Pulse 75 Pulse Source Pulse Oximeter Pulse Oximetry (%) 99 Intake Visit Reasons: Low back pain, unspecified Intake Note: Pain today 01/02 Wire Strander Required: No Accompanied by: Self / Same As Patient Allergies No Known Allergies Allergy (Verified 05/06/25 14:04) HPI Comments Details: The patient is a 65-year-old male presenting with chronic low back pain. He was last seen in our office in 2021 and more recently was evaluated at [facility] last month. The pain has been persistent for several years, with initial onset prior to moving to [place] in 2016. He reports that previous interventions, including physical therapy one month ago and facet injections, provided no relief. The patient describes the pain as stabbing in nature, primarily affecting the lower back on the right side and exacerbated by sitting and bending and flexing forward. He notes that the pain subsides with walking and is not aggravated by bending backwards. He also has difficulty sleeping in certain positions and has to sleep in supine position due to significant increase in right sided low back pain with twisting and repositioning. In the past, a diagnostic injection in the sacroiliac joint provided temporary relief, suggesting some involvement of the joint. Today's evaluations suggest the pain may be discogenic. The patient has not undergone recent imaging, with the last x-ray performed approximately six to seven years ago. We will obtain lumbar spine MRI to further evaluate the condition. The patient manages his pain with ibuprofen and stretching exercises, avoiding excessive use of medications. He reports that cold therapy provides some relief, while lidocaine patches have been ineffective. - Onset: Persistent for several years, initially before moving to [place] in 2016 - Quality: Stabbing, throbbing, sharp, knife-like and shooting pain, tightness and spasming - Location: Lower back on the right side - Exacerbating factors: Sitting, bending forward, flexion, prolonged sitting, changing positions, twisting, heavy lifting - Relieving factors: Walking, leaning backwards, supine position - Radiation: Not specified - Interference: Pain increases with prolonged sitting and driving - Affect: Pain impacts daily activities, particularly sitting and driving - Analgesia: Uses ibuprofen and stretching exercises; cold therapy provides some relief - Adverse Effects: None reported from current pain management strategies - Activities of Daily Living: Pain interferes with sitting and driving, but walking alleviates symptoms - Aberrant Drug Related Behaviors: None reported Oswestry Low Back Pain Disability Score=22 PRIOR 11/03/21 Joanne Casas DAYCARE PROVIDER: Today's visit was conducted via telephone to discuss potential procedures as he had significant relief with a right diagnostic SIJ injection performed on 08/03/[address] Clark. PRIOR: Alberto returns today with an exacerbation is his pain. 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 He is scheduled for a diagnostic SIJ injection but wanted to discuss this flare in his symptoms. He reported trying some exercises indicated for SIJ pathology with improvement in his symptoms but reported sharply turning leading to an exacerbation in his pain. He is currently wearing a LSO with some improvements, given to him by a previous provider. PRIOR: Alberto is a pleasant 61 year old male who presents to the office, accompanied by his , with complaints of low back pain. He states his pain is mostly right sided without any associated symptoms. Denies any numbness, tingling, weakness or bowel/bladder dysfunction. He also reports muscle spasms across the low back which are moderately relieved with flexeril. He has also tried NSAIDS, tylenol as well as oxycodone with minimal effect in his discomfort. He was evaluated at [facility] and underwent right L4-L5 L5-S1 facet injections with exacerbation in his pain. He reports pain onset was gradual, constant and rates the pain a 6/10. He/ states the pain is interfering with sleep, activities of daily living and he cannot function normally. The patient reports the pain in terms of tissue damage as sharp, pinching, tugging as well as tingling and tight. His pain is exacerbated by forward flexion as well as repositioning while laying down and positioning transitions such as sitting to standing. Previously he has tried physical therapy as well as chiropractic manipulation with minimal improvement in his pain. He is currently doing home stretching which he learned through PT, but his symptoms are unchanged. Denies any previous lumbar surgery. Of note, he did have a right inguinal hernia repair performed in March 2021, but states this did not have any effect the symptoms he reports today. [facility] Medical History Hiatal hernia Overweight (BMI 25.0-29.9) Anxiety Erosive esophagitis Insomnia Lumbar degenerative disc disease Obstructive sleep apnea Acquired hypothyroidism Benign essential hypertension Thyroid disease HTN (hypertension) Dysphagia Surgical History Hx of arthroscopic knee surgery History of endoscopy S/P right inguinal hernia repair (04/19/21) Hx of endoscopy History of colonoscopy Family History Father Throat cancer Tongue cancer Mother Family history of high blood pressure Family history of Alzheimer's disease Social History Housing: Apartment Alcohol intake: current Alcohol intake frequency: a few times a month Patient Tobacco Use Status: Former Tobacco user Tobacco use type: Cigarette e-Cigarette/Vaping Use: Never Used Second Hand Smoke Exposure: Yes Substance Use Type: Marijuana service: No Current occupational status: employed Cognitive needs: No Hearing needs: No Vision needs: Yes Review of Systems Const Details: - Musculoskeletal: Reports stabbing pain in lower back, exacerbated by sitting, leaning and bending forward; denies pain on bending backwards - Neurological: Denies tingling or numbness, bladder or bowel dysfunction or saddle anesthesia - General: Denies diabetes, no history of back surgery All systems reviewed & are unremarkable except as noted in HPI and below Physical Exam Vital Signs: Last Vital Signs Pulse 75 05/06/25 14:07 BP 164/99 H 05/06/25 14:07 Pulse Ox 99 05/06/25 14:07 BMI result Body Mass Index 27.9 General: Appears afebrile. Alert and oriented. Mood and affect appropriate. Follows and participates in conversation appropriately. Respiratory effort is unlabored. No cough. Able to transition from sit to stand unassisted. Ambulates with bilaterally normal heel strike and toe off. General: Yes no CVA tenderness Back/Spine/Pelvis Other: Limited lumbar ROM due to pain. Demonstrates 5/5 strength of quadriceps bilaterally as well as flexion/dorsiflexion of bilateral feet against resistance. 2+ pedal pulses bilaterally. Straight leg rise with dorsiflexion negative bilaterally. +2 patellar and achilles reflexes bilaterally. Facet loading test positive bilaterally. Maldonado sign, Antonio?s, Gaenslen, Pelvic compression and Stinchfield tests are positive on the right. No groin pain with I/E hip rotations. Significant paraspinals tenderness mostly on the right lower back. Valsalva maneuver is negative. Back: no CVA tenderness Cervical Spine: cervical ROM normal, cervical muscular tenderness and No Cervical spine tenderness Thoracic/Lumbar Spine: thoracic and lumbar spine normal to inspection, No Thoracic/lumbar spine scar(s), Lasegue's sign negative, straight leg raise negative bilaterally, pain with thoraco-lumbar ROM, paraspinal muscle tenderness on the right greater than left, No thoraco-lumbar ROM limited, No thoracic spinal tenderness and lumbar spinal tenderness (L3-S1) Pelvis: buttock tenderness on the right Sacroiliac joints: on the right tender to palpation and on the left nontender Assessment & Plan Assessment & Plan (1) Lumbar degenerative disc disease: Code(s): M51.36 - Other intervertebral disc degeneration, lumbar region Category: Medical Qualifiers: Disc-related pain type: discogenic back pain only Qualified Code(s): M51.360 - Other intervertebral disc degeneration, lumbar region with discogenic back pain only (2) Sacroiliac joint pain: Code(s): M53.3 - Sacrococcygeal disorders, not elsewhere classified Category: Medical (3) Lumbosacral spondylosis: Code(s): M47.817 - Spondylosis without myelopathy or radiculopathy, lumbosacral region Category: Medical (4) Sacroiliac joint pain: Code(s): M53.3 - Sacrococcygeal disorders, not elsewhere classified Category: Medical (5) Vertebrogenic low back pain: Code(s): M54.51 - Vertebrogenic low back pain Category: Medical (6) Chronic low back pain: Code(s): M54.50 - Low back pain, unspecified; G89.29 - Other chronic pain Category: Medical Plan Will obstain MRI of the lumbar spine to evaluate for discogenic pain and rule out other pathologies. Continue ibuprofen and stretching exercises as part of pain management. Script sent for topical pain relief. Discussed treatments for low back pain with associated minimal sacroiliac joint involvement and discogenic pain as the primary issue. Patient is aware to call if pain worsens or if he develops any red flag symptoms to seek emergency care. All questions and concerns have been answered and patient agreed with the plan. Follow up for MRI results and sooner as needed. Patient was informed and verbally consented to the use of an ambient scribe for clinic note documentation during this visit. Orders: Orders XR lumbar spine 4V min 05/06/25 G89.29 - Other chronic pain, M47.817 - Spondylosis without myelopathy or radiculopathy, lumbosacral region, M54.50 - Low back pain, unspecified XR sacroiliac joint min 3V 05/06/25 M47.817 - Spondylosis without myelopathy or radiculopathy, lumbosacral region, M53.3 - Sacrococcygeal disorders, not elsewhere classified MR lumbar spine wo con 05/06/25 M47.817 - Spondylosis without myelopathy or radiculopathy, lumbosacral region, M51.360 - Other intervertebral disc degeneration, lumbar region with discogenic back pain only, M54.51 - Vertebrogenic low back pain Medications: New capsaicin-m.myaefin-wylmn-eszs 0.025-15-10-3.1 % (Advil Targeted Relief) 1 appl topical TID 113.4 grams 1RF pain 30 days G89.29 - Other chronic pain, M54.50 - Low back pain, unspecified, M54.51 - Vertebrogenic low back pain Coding Level of Care Code New Pt Level 4 (05059) Diagnoses Degeneration of intervertebral disc of lumbar region with discogenic back pain M51.360 Disc-related pain type: discogenic back pain only Sacroiliac joint pain M53.3 Lumbosacral spondylosis M47.817 Vertebrogenic low back pain M54.51 Chronic low back pain M54.50; G89.29
[2025-05-06 14:07] VITALS: BP 164/99; PULSE 75; O2SAT 99; BMI 27.9
--- OUTSIDE RECORDS SUMMARY | 2025-05-06 15:02 | XMS_ITS | Encounter Summary ---
Author Organization [employer] [facility] Address [address] [place] [address] Care Team Providers Care Home Health Travel Ot Name Role Phone Unavailable Primary Care Provider Unavailabl e Encounter Details Date Type Department Care Team (Late st Contact Info) Description 01/30/2023 Abstract [facility] Information Management [address] [place] [address] Mckenna Crocker MD [address] [place] [address] Social History Tobacco Use Types Packs/Day Years [...]
== END 2025-05-06 14:38 | disposition home or self-care (01) ==
LOC: HO.PMC 14:00
PROVIDERS: PCP Internal Medicine; Visit Provider Nurse Practitioner Family
DX: M51.360 Other intervertebral disc degeneration, lumbar region with discogenic back pain only (principal); M53.3 Sacrococcygeal disorders, not elsewhere classified; M47.817 Spondylosis without myelopathy or radiculopathy, lumbosacral region; G89.29 Other chronic pain
CPT/HCPCS: 99204

== ENCOUNTER 2025-05-19 13:57 | Outpatient (REF) | payer OTHER, SELFPAY ==
--- NOTE | ~2025-05-19 | US_ITS ---
EXAMINATION: US BLADDER HISTORY: N40.1 - Benign prostatic hyperplasia with lower urinary tract symptoms COMPARISON: There are no prior studies available for comparison. FINDINGS: Sonographic examination of the urinary bladder was performed before and after voiding. Before voiding, the urinary bladder measured 11.0 x 9.6 x 9.8, for an estimated volume of 541 mL. After voiding, the urinary bladder measured 6.8 x 5.2 x 7.8, for an estimated volume of 142 mL. No intrinsic bladder abnormality is identified. Bilateral ureteral jets are identified. The prostate measures 3.3 x 3.0 x 4.7 cm, for an estimated volume of 24.6 mL. US/US bladder IMPRESSION: 1. Unremarkable ultrasound of the urinary bladder. 2. Post void bladder residual of 142 mL. 3. Prostate volume of 24.6 mL. Electronically signed by: Edwin Carter MD 05/19/2025 02:40 PM EDT
--- OUTSIDE RECORDS SUMMARY | 2025-05-19 15:19 | XMS_ITS | Encounter Summary ---
Author Organization [employer] [facility] Address [address] [place] [address] Care Team Providers Care Supervisor Coal Handling Name Role Phone Unavailable Primary Care Provider Unavailabl e Encounter Details Date Type Department Care Team (Late st Contact Info) Description 01/30/2023 Abstract [facility] Information Management [address] [place] [address] Mckenna Crocker MD [address] [place] [address] Social History Tobacco Use Types Packs/Day Years [...]
--- OUTSIDE RECORDS SUMMARY | 2025-05-19 15:19 | XMS_ITS | Clinical Summary ---
Author Organization [employer] [facility] Address [address] [place] [address] Care Team Providers Care Medic Technician Name Role Phone Unavailable Primary Care Provider [...] FOBT 1962 Lipid Panel 1962 Sigmoidoscopy 1962 Disability Screening 1962 Alcohol/Substance Use Screening 1974 Tobacco Screening 1974 DTaP/Tdap/Td Vaccines (1 - Tdap) 1981 Pneumococcal Vaccine: 50+ Years (1 of 1 - PCV) 2012 Zoster Vaccines (1 of 2) 2012 COVID-19 Vaccine (4 - 2023-2 5 season) 2024 09/07/2021, 01/21/2021, 12/24/2020 Influenza Vaccine (#1) 2025 RSV Patients and Patients Aged 60 years [...] patient's age to complete this topic Meningococcal B Vaccine Aged Out No l onger eligible based on patient's age to complete [...]
== END 2025-05-19 13:58 | disposition home or self-care (01) ==
LOC: HO.US 13:57
PROVIDERS: PCP Internal Medicine; Visit Provider Urology
DX: N40.1 Benign prostatic hyperplasia with lower urinary tract symptoms (principal); R39.14 Feeling of incomplete bladder emptying
CPT/HCPCS: 76857

== ENCOUNTER → 2025-05-19 14:00 | Outpatient (BNV) | payer OTHER, SELFPAY | PROVIDERS: PCP Internal Medicine; Visit Provider Radiology Diagnostic Radiology | DX: N40.1 Benign prostatic hyperplasia with lower urinary tract symptoms (principal) | CPT/HCPCS: 76857 ==

== ENCOUNTER 2025-05-26 14:47 | Outpatient (REF) | payer OTHER, SELFPAY ==
--- NOTE | ~2025-05-26 | MR_ITS ---
EXAMINATION: MR LUMBAR SPINE WITHOUT CONTRAST CLINICAL INFORMATION: Low back pain. COMPARISON: None available. TECHNIQUE: MRI of the lumbar spine was obtained using routine sequences without contrast. FINDINGS: There is normal lumbar lordosis. The vertebral heights and alignment is normal. There is loss of L2-3 disc height. Rest of the disc heights are normal. The T12-L1, L1-2 disc level appears unremarkable. At L2-3 disc level there is a broad-based diffuse bulge/spondylosis complex without spinal canal stenosis. The new foramina are moderately narrowed bilaterally from moderate bilateral facet joint arthropathy. Right greater than left. At L3-4 disc level there is preserved disc signal and thickness. There is no significant disc bulge, herniation or spinal canal stenosis. The neural foramina are minimally narrowed from mild bilateral facet joint arthropathy. At L4-5 disc level there is preserved disc signal and thickness. There is mild diffuse bulge flattening the ventral thecal sac but without spinal canal stenosis. There is mild bilateral narrowing of neural foramina from facet joint hypertrophy. At L5-S1 disc level the thecal sac is capacious. The disc thickness and signal is normal. The neural foramina are mildly narrowed bilaterally from mild facet joint hypertrophy. Endplate changes at the L2 to-3 disc level. Rest of the bone marrow signal, intraspinal signal and paravertebral soft tissues are normal. MR/MR lumbar spine wo con IMPRESSION: Degenerative disc changes with endplate changes at L2-3 disc level. Minimal bulge/osteophyte complex with moderate to severe bilateral neural from narrowing. There is underlying bilateral facet joint arthropathy. No spinal canal stenosis seen. Electronically signed by: Elia Evans MD 05/27/2025 07:24 AM EDT
--- OUTSIDE RECORDS SUMMARY | 2025-05-26 14:57 | XMS_ITS | Encounter Summary ---
Author Organization [facility] Address [address] [place] [address] Care Team Providers Care Outsole Compressor Name Role Phone Unavailable Primary Care Provider Unavailabl e Encounter Details Date Type Department Care Team (Late st Contact Info) Description 01/30/2023 Abstract [facility] Information Management [address] [place] [address] Mckenna Crocker MD [address] [place] [address] Social History Tobacco Use Types Packs/Day Years [...]
--- OUTSIDE RECORDS SUMMARY | 2025-05-26 14:57 | XMS_ITS | Clinical Summary ---
Author Organization [employer] [facility] Address [address] [place] [address] Care Team Providers Care Water Hydrant Installer Name Role Phone Unavailable Primary Care Provider [...]
== END 2025-05-26 14:48 | disposition home or self-care (01) ==
LOC: HO.MRI 14:47
PROVIDERS: PCP Internal Medicine; Visit Provider Nurse Practitioner Family
DX: M54.51 Vertebrogenic low back pain (principal); M47.817 Spondylosis without myelopathy or radiculopathy, lumbosacral region
CPT/HCPCS: 72148

== ENCOUNTER → 2025-05-26 14:47 | Outpatient (BNV) | payer OTHER, SELFPAY | PROVIDERS: PCP Internal Medicine; Visit Provider Radiology Diagnostic Radiology | DX: M51.369 Other intervertebral disc degeneration, lumbar region without mention of lumbar back pain or lower extremity pain (principal); M47.816 Spondylosis without myelopathy or radiculopathy, lumbar region | CPT/HCPCS: 72148 ==

== ENCOUNTER 2025-06-09 16:04 | Outpatient (AMB) | payer OTHER, SELFPAY ==
--- NOTE | 2025-06-09 16:07 | A.OFFPC_ITS ---
Vital Signs 06/09/25 16:08 Height 5 ft 11 in Weight 202 lb BMI 28.2 BP 110/68 Blood Pressure Location Lt brachial Position Sitting Pulse 79 Pulse Source Pulse Oximeter Pulse Oximetry (%) 95 Oxygen Delivery Method Room Air Intake Visit Reasons: 6 Months Seismograph Recorder Required: No Accompanied by: Self / Same As Patient Allergies No Known Allergies Allergy (Verified 06/10/25 14:48) Medication List - Last Reconciled 06/09/25 by Branden eRcinos MD amlodipine 5 mg PO DAILY ascorbic acid (vitamin C) (Vitamin C) 500 mg PO DAILY capsaicin-m.gmndusa-nbkbd-qcdc 0.025-15-10-3.1 % (Advil Targeted Relief) 1 appl topical TID 30 days cholecalciferol (vitamin D3) (Vitamin D3) 25 mcg PO DAILY diclofenac sodium 50 mg PO Q12H PRN Euthyrox (levothyroxine) 125 mcg PO DAILY 90 days NS lisinopril 5 mg PO DAILY 90 days multivitamin with folic acid 400 mcg (Daily-Irena (with folic acid)) 1 tab PO DAILY pantoprazole 40 mg PO Q12H sildenafil 50 mg PO DAILY PRN tadalafil 5 mg PO DAILY 90 days Tobacco use date assessed: 06/09/25 Dental Screening Dental Screen Date: 06/09/25 Did you have a dental visit in the last 12 months?: Yes Did you have a dental problem in the last 6 months where you did not have access to dental care?: No Was dental information given to patient?: Patient has dentist HPI 6 Months HPI Details Patient comes in today for his follow up visit - he was last seen in November 2024 Patient states that he continues to experience increased pain over his lower back - was last seen by pain management last month and is now awaiting ariana farrar for his lumbar spine MRI that was ordered by pain management for further evaluation Patient states that he feels okay otherwise He denies any headaches or dizziness Denies any chest pains, no increased SOB No nausea/vomiting, no abdominal pain No change in bowel habits noted He had some follow up labs that were last done sometime in December 2024 [facility] Medical History Hiatal hernia Overweight (BMI 25.0-29.9) Anxiety Erosive esophagitis Insomnia Lumbar degenerative disc disease Obstructive sleep apnea Acquired hypothyroidism Benign essential hypertension Thyroid disease HTN (hypertension) Dysphagia Surgical History Hx of arthroscopic knee surgery History of endoscopy S/P right inguinal hernia repair (04/19/21) Hx of endoscopy History of colonoscopy Family History Father Throat cancer Tongue cancer Mother Family history of high blood pressure Family history of Alzheimer's disease Social History Housing: Apartment Alcohol intake: current Alcohol intake frequency: a few times a month Patient Tobacco Use Status: Former Tobacco user Tobacco use type: Cigarette e-Cigarette/Vaping Use: Never Used Second Hand Smoke Exposure: Yes Substance Use Type: Marijuana service: No Current occupational status: employed Cognitive needs: No Hearing needs: No Vision needs: Yes Questionnaire Thrive Questionnaire Date Thrive assessed: 06/09/25 I am a: Patient What is your living situation today?: I have a steady place to live Within the past 12 months, did the food you bought not last and you didn't have the money to get more?: Never true Within the past 12 months, did you worry whether your food would run out before you got money to buy more?: Never true Do you have trouble paying for medicines?: No Do you have trouble getting transportation to medical appointments?: No Do you have trouble paying your heating and electricity bill?: No Do you have trouble taking care of your child, family member or friend?: No Do you have trouble with day-to-day activities such as bathing, preparing meals, shopping, managing finances, etc.?: No Are you currently unemployed and looking for a job?: No Are you interested in more education?: No Please select the resources that you would like help with: None Currently or been in a relationship where the following occur: No concerns rep orted THRIVE Score: 0 AUDIT C Alcohol Use Questionnaire (AUDIT-C) 1. How often do you have a drink containing alcohol?: 2-4 times a month 2. How many drinks containing alcohol do you have on a typical day when you are drinking?: 1 or 2 3. How often do you have six or more drinks on one occasion?: Never Total Score: 2 TREVIN-7 AMB Questionnaire TREVIN-7 Date TREVIN - 7 assessed: 12/23/24 Feeling nervous, anxious, or on edge: 1 = Several days Not being able to stop or control worryin = Several days Worrying too much about different things: 1 = Several days Trouble relaxin = Several days Being so restless that it is hard to sit still: 1 = Several days Becoming easily annoyed or irritable: 1 = Several days Feeling afraid as if something awful might happen: 1 = Several days Total TREVIN-7 score (0-4 normal; 5-9 mild; 10-14 moderate; 15-21 severe): 7 Source: Developed by Drs. Edwin Fair, Diana Tuttle, Keenan Navarro and colleagues, with an educational chantel from [employer]. Physical exam (Primary Care) Vital Signs: Last Vital Signs Pulse 79 06/09/25 16:08 BP 110/68 06/09/25 16:08 Pulse Ox 95 06/09/25 16:08 Oxygen Delivery Method Room Air 06/09/25 16:08 BMI result Body Mass Index 28.2 Tobacco/Smoking Status: Tobacco use Status Tobacco use date assessed 06/09/25 06/09/25 16:16 Patient Tobacco Use Status Former Tobacco user 06/09/25 16:16 Tobacco use type Cigarette 06/09/25 16:16 e-Cigarette/Vaping Use Never Used 06/09/25 16:16 Thrive Assessment: Date of Thrive Assessment Date Thrive assessed 06/09/25 06/09/25 16:16 Currently or been in a relationship where the following occur: No concerns reported Results Reviewed Results Reviewed: Laboratory Tests 01/13/25 01/13/25 12:05 12:11 WBC 7.6 Hgb 15.7 Hct 48.4 Plt Count 301 ESR 8 Sodium 143 Potassium 4.1 Creatinine 0.97 Estimated GFR > 60 Fasting Glucose 94 Calcium 9.5 AST 23 ALT 22 C-Reactive Protein 1.87 H Triglycerides 95 Cholesterol 162 LDL Cholesterol, Calc 100 H HDL Cholesterol 43 Vitamin B12 > 2000 H 25-OH Vitamin D Total 67.0 TSH 1.99 Free T4 1.19 Ur Specific [place] 1.020 Urine Protein Negative Urine Glucose (UA) Negative Urine Blood Negative Urine Nitrite Negative Ur Leukocyte Esterase Negative Rheumatoid Factor < 13.0 NICOLLE Screen NEGATIVE Coding Level of Care Code Est Pt Level 4 (00756) Diagnoses Benign essential hypertension I10 Acquired hypothyroidism E03.9 Obstructive sleep apnea G47.33 Erosive esophagitis K22.10 Primary osteoarthritis of right knee M17.11 Osteoarthritis type: primary Degeneration of intervertebral disc of lumbar region with discogenic back pain M51.360 Disc-related pain type: discogenic back pain only Acute pain of right shoulder M25.511 Chronicity: acute Erectile dysfunction, unspecified erectile dysfunction type N52.9 Erectile dysfunction type: unspecified Benign prostatic hyperplasia with incomplete bladder emptying N40.1; R39.14 Insomnia, unspecified type G47.00 Insomnia type: unspecified Overweight (BMI 25.0-29.9) E66.3 Assessment & Plan Assessment & Plan (1) Benign essential hypertension: Code(s): I10 - Essential (primary) hypertension Category: Medical Plan: Reinforced low sodium diet - goal is systolic BP of 120 mm or less Continue Amlodipine 5 mg QD and Lisinopril 5 mg QD Results of his labs done back in December 2024 reviewed and discussed with patient (2) Acquired hypothyroidism: Code(s): E03.9 - Hypothyroidism, unspecified Category: Medical Plan: His TFTs were normal on his labs done in December 2024 Continue Levothyroxine 125 mcg QD (3) Obstructive sleep apnea: Comment: uses cpap Code(s): G47.33 - Obstructive sleep apnea (adult) (pediatric) Category: Medical Plan: He was using his CPAP device when sleeping at night regularly until a few months ago; is now using a BiPAP device but is still having problems tolerating the device when sleeping Follow up with sleep medicine at [facility] as scheduled (4) Erosive esophagitis: Code(s): K22.10 - Ulcer of esophagus without bleeding Category: Medical Plan: Dietary restrictions reinforced S/P repeat EGD last year (2023) - findings (+) for gastritis, duodenitis, erosive esophagitis, hiatal hernia and Schatzki's ring Continue Pantoprazole 40 mg BID Follow up with GI as scheduled (5) Osteoarthritis of right knee: Code(s): M17.11 - Unilateral primary osteoarthritis, right knee Category: Medical Qualifiers: Osteoarthritis type: primary Qualified Code(s): M17.11 - Unilateral primary osteoarthritis, right knee Plan: He was seen by [facility] a few months ago and had viscosupplementation in his right knee, which he states did not really help much He continues to experience frequent knee pain but states that the pain is mostly manageable lately Right knee x-rays done last year revealed (+) moderate narrowing medial knee joint compartment with mild osteophytes. No erosive changes; (+) narrowing of the lateral patellofemoral joint and spurring of the quadriceps insertion patella Follow up with orthopedics at [facility] as scheduled (6) Lumbar degenerative disc disease: Code(s): M51.36 - Other intervertebral disc degeneration, lumbar region Category: Medical Qualifiers: Disc-related pain type: discogenic back pain only Qualified Code(s): M51.360 - Other intervertebral disc degeneration, lumbar region with discogenic back pain only Plan: Reinforced activity and weight-lifting restrictions He was diagnosed with SI joint dysfunction/syndrome and is currently debating on available treatment options States that his low back pain was relieved temporarily with injections last year He is currently waiting for his lumbar spine MRI (ordered by pain management) to be scheduled Follow up with pain management as scheduled (7) Right shoulder pain: Code(s): M25.511 - Pain in right shoulder Category: Medical Qualifiers: Chronicity: acute Qualified Code(s): M25.511 - Pain in right shoulder Plan: His right shoulder has been bothering him for a while and he requested then for a referral for PT He goes to [facility] in [place] for physical therapy evaluation and management Per request, we also referred him to rheumatology for further evaluation and management of his joint pains - he is now scheduled to be seen by rheumatology in late July 2025 His ESR and CRP levels came back very high (8) Erectile dysfunction: Code(s): N52.9 - Male erectile dysfunction, unspecified Category: Medical Qualifiers: Erectile dysfunction type: unspecified Qualified Code(s): N52.9 - Male erectile dysfunction, unspecified Plan: Continue Viagra 50 mg QD PRN as instructed (9) Benign prostatic hyperplasia with incomplete bladder emptying: Code(s): N40.1 - Benign prostatic hyperplasia with lower urinary tract symptoms; R39.14 - Feeling of incomplete bladder emptying Category: Medical Plan: Follow up with urology as scheduled (10) Insomnia: Code(s): G47.00 - Insomnia, unspecified Category: Medical Qualifiers: Insomnia type: unspecified Qualified Code(s): G47.00 - Insomnia, unspecified Plan: Sleep hygiene reinforced He was started on a trial of Mirtazapine last year but could not tolerate Rx and Rx was discontinued Continue Zolpidem 10 mg Q HS PRN He has been taking 1/2 tablet of Clonazepam at times to help him sleep - he has been advised again that it is not a good idea to continue taking Clonazepam for sleep as is not indicated for sleep and can be habit-forming if taken regularly (11) Overweight (BMI 25.0-29.9): Code(s): E66.3 - Overweight Category: Medical Plan: Reinforced diet/exercise as tolerated/lose weight Plan To return in 6 months for his next annual physical examination Orders: Orders Lipid Panel 6 Months E78.00 - Pure hypercholesterolemia, unspecified, Z00.00 - Encounter for general adult medical examination without abnormal findings Thyroid Stimulating Hormone 6 Months E03.9 - Hypothyroidism, unspecified, Z00.00 - Encounter for general adult medical examination without abnormal findings Free T4 (Free Thyroxine) 6 Months E03.9 - Hypothyroidism, unspecified, Z00.00 - Encounter for general adult medical examination without abnormal findings Vitamin D 25-OH Total 6 Months E55.9 - Vitamin D deficiency, unspecified, Z00.00 - Encounter for general adult medical examination without abnormal findings Complete Blood Count Auto Diff 6 Months D64.9 - Anemia, unspecified, Z00.00 - Encounter for general adult medical examination without abnormal findings Comprehensive [place]. Panel Fast 6 Months E78.00 - Pure hypercholesterolemia, unspecified, Z00.00 - Encounter for general adult medical examination without abnormal findings UA CC w/rflx Micro + Cult 6 Months R30.0 - Dysuria, Z00.00 - Encounter for general adult medical examination without abnormal findings Vitamin B12 and Folate 6 Months E53.8 - Deficiency of other specified B group vitamins, Z00.00 - Encounter for general adult medical examination without abnormal findings
[2025-06-09 16:08] VITALS: BP 110/68; PULSE 79; O2SAT 95; BMI 28.2
--- OUTSIDE RECORDS SUMMARY | 2025-06-09 21:15 | XMS_ITS | Clinical Summary ---
Author Organization [employer] [facility] Address [address] [place] [address] Care Team Providers Care Silk Spooler Name Role Phone Unavailable Primary Care Provider [...] of 2) 2012 COVID-19 Vaccine (4 - 2024-2 6 season) 2025 09/07/2021, 01/21/2021, 12/24/2020 Influenza Vaccine (#1) 2025 [...]
--- OUTSIDE RECORDS SUMMARY | 2025-06-09 21:15 | XMS_ITS | Encounter Summary ---
Author Organization [employer] [facility] Address [address] [place] [id number] Care Team Providers Care Heater Mechanic Name Role Phone Unavailable Primary Care Provider Unavailabl e Encounter Details Date Type Department Care Team (Late st Contact Info) Description 01/30/2023 Abstract [facility] Information Management [address] [place] [address] Mckenna Crocker MD [address] [place] [address] Social History Tobacco Use Types Packs/Day Years [...]
== END 2025-06-09 16:41 | disposition home or self-care (01) ==
LOC: HO.HMCH 16:05
PROVIDERS: PCP Internal Medicine; Visit Provider Internal Medicine
DX: I10 Essential (primary) hypertension (principal); E03.9 Hypothyroidism, unspecified; G47.33 Obstructive sleep apnea (adult) (pediatric); K22.10 Ulcer of esophagus without bleeding; M17.11 Unilateral primary osteoarthritis, right knee; M51.360 Other intervertebral disc degeneration, lumbar region with discogenic back pain only; M25.511 Pain in right shoulder; N52.9 Male erectile dysfunction, unspecified; N40.1 Benign prostatic hyperplasia with lower urinary tract symptoms; R39.14 Feeling of incomplete bladder emptying; G47.00 Insomnia, unspecified; E66.3 Overweight

== ENCOUNTER 2025-06-10 14:34 | Outpatient (AMB) | payer OTHER, SELFPAY ==
--- NOTE | 2025-06-10 14:47 | A.OFFVIS_ITS ---
Intake Visit Reasons: 3M follow up/US/PVR Intake Note: Patient is present for 3 mo follow up Urology Medication:SILDENAFIL,VITAMIN C, TADALAFIL Antibiotic Allergy:NONE Blood Thinner:NONE ultrasound done : 05/16/25 [employer] Whe[employer] Ax[employer] Inspector Required: No Accompanied by: Self / Same As Patient Allergies No Known Allergies Allergy (Verified 06/10/25 14:48) HPI Comments Details: Alberto is a pleasant male. He is a patient of Dr. Recinos. He is seen for the following urologic issues - lower urinary tract symptoms - erectile dysfunction Three-month follow-up trial tadalafil Had some degree of headache Unsure if related to sleep apnea adjustments Emphasized he should adjust sleep apnea machine and when stable for one-month retry tadalafil Follow-up six-month with PSA and testosterone Lower urinary tract symptoms Progressive Urinary urge with weakness of stream Moderate bother No prior medications Trial daily tadalafil Erectile dysfunction Sildenafil p.r.n. We will see if response to daily tadalafil PFSH Medical History Hiatal hernia Overweight (BMI 25.0-29.9) Anxiety Erosive esophagitis Insomnia Lumbar degenerative disc disease Obstructive sleep apnea Acquired hypothyroidism Benign essential hypertension Thyroid disease HTN (hypertension) Dysphagia Surgical History Hx of arthroscopic knee surgery History of endoscopy S/P right inguinal hernia repair (04/19/21) Hx of endoscopy History of colonoscopy Family History Father Throat cancer Tongue cancer Mother Family history of high blood pressure Family history of Alzheimer's disease Social History Housing: Apartment Alcohol intake: current Alcohol intake frequency: a few times a month Patient Tobacco Use Status: Former Tobacco user Tobacco use type: Cigarette e-Cigarette/Vaping Use: Never Used Second Hand Smoke Exposure: Yes Substance Use Type: Marijuana service: No Current occupational status: employed Cognitive needs: No Hearing needs: No Vision needs: Yes Review of Systems Const Denies chills and Denies fever(s) Card Reports no additional complaints and Denies syncope Resp Denies cough GI Denies abdominal pain and Denies heartburn Reports as per HPI and Denies change in libido Neuro Denies syncope Psych Denies change in libido Endo Denies change in libido Physical Exam Const General: cooperative, healthy appearing, comfortable and no acute distress Orientation/consciousness: patient oriented x3 HEENT Face and sinus: Yes normal facial exam Mouth: moist mucous membranes Neck Neck: Yes normal visual inspection, Yes full ROM and Yes trachea midline Chest Chest palpation & inspection: normal inspection of the chest Resp Effort & Inspection: normal respiratory effort, able to speak in complete sentences and no respiratory distress GI Inspection: Yes normal to inspection Back/Spine/Pelvis Cervical Spine: normal cervical lordosis Thoracic/Lumbar Spine: thoracic and lumbar spine normal to inspection Skin General skin exam: no rashes or lesions noted Neuro General: patient oriented x3, gait normal, tone normal and moves all extremities Extrem General: Yes normal to inspection and Yes capillary refill normal Assessment & Plan Assessment & Plan (1) Erectile dysfunction: Code(s): N52.9 - Male erectile dysfunction, unspecified Category: Medical Qualifiers: Erectile dysfunction type: unspecified Qualified Code(s): N52.9 - Male erectile dysfunction, unspecified (2) Benign prostatic hyperplasia with incomplete bladder emptying: Code(s): N40.1 - Benign prostatic hyperplasia with lower urinary tract symptoms; R39.14 - Feeling of incomplete bladder emptying Category: Medical Plan Six-month follow-up lab work Orders: Orders Testosterone, Total 5 Months N52.9 - Male erectile dysfunction, unspecified Prostate Specific Antigen 5 Months N52.9 - Male erectile dysfunction, unspecified Patient Instructions: This note is constructed using voice recognition software. While every effort has been made to ensure accuracy salesperson sheet music errors may have been included. Imaging studies, laboratory and physical exam results were discussed and reviewed in detail. No major barriers to patient understanding were identified. An opportunity to ask questions regarding the treatment plan was provided. All questions were answered. The patient expressed understanding and agreement with the above treatment plan. The patient is aware they should contact our office by phone for worsening of their current condition or the appearance of new urologic symptoms. Compliance is encouraged with any medications and followup testing that is ordered. It is a privilege to participate in the urologic care of your patient. If you have any questions or concerns regarding treatment for the above conditions, or other urologic issues, please do not hesitate to contact me. The office telephone contact is [phone]. Sincerely, Dr Jose Eduardo Lindo MD, [facility] - Urology Compassionate Specialist Care for the Genitourinary System Coding Level of Care Code Est Pt Level 3 (43472) Diagnoses Erectile dysfunction, unspecified erectile dysfunction type N52.9 Erectile dysfunction type: unspecified Benign prostatic hyperplasia with incomplete bladder emptying N40.1; R39.14
--- OUTSIDE RECORDS SUMMARY | 2025-06-10 18:16 | XMS_ITS | Clinical Summary ---
Author Organization [employer] [facility] Address [address] [place] [address] Care Team Providers Care Overlock Sleeve Setter Name Role Phone Unavailable Primary Care Provider [...]
--- OUTSIDE RECORDS SUMMARY | 2025-06-10 18:16 | XMS_ITS | Encounter Summary ---
Author Organization [employer] [facility] Address [address] [place] [id number] Care Team Providers Care Manager Of Employee Relations Name Role Phone Unavailable Primary Care Provider Unavailabl e Encounter Details Date Type Department Care Team (Late st Contact Info) Description 01/30/2023 Abstract [facility] Information Management [address] [place] [address] Mckenna Crocker MD [address] [place] [address] Social History Tobacco Use Types Packs/Day Years [...]
== END 2025-06-10 15:08 | disposition home or self-care (01) ==
LOC: HO.HUSH 14:34
PROVIDERS: PCP Internal Medicine; Visit Provider Urology
DX: N52.9 Male erectile dysfunction, unspecified (principal); N40.1 Benign prostatic hyperplasia with lower urinary tract symptoms; R39.14 Feeling of incomplete bladder emptying; Z13.9 Encounter for screening, unspecified
CPT/HCPCS: 99213

== ENCOUNTER → 2025-06-10 14:34 | Outpatient (BNVA) | payer OTHER, SELFPAY | PROVIDERS: PCP Internal Medicine; Visit Provider Urology | DX: N40.1 Benign prostatic hyperplasia with lower urinary tract symptoms (principal); N52.9 Male erectile dysfunction, unspecified; R39.14 Feeling of incomplete bladder emptying | CPT/HCPCS: 51798; 81003 ==

== ENCOUNTER 2025-08-04 14:26 | Outpatient (AMB) | payer OTHER, SELFPAY ==
--- NOTE | 2025-08-04 14:36 | A.OFFVIS_ITS ---
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 The pain has been persistent for several years, initially identified around three years ago, with a similar pain pattern persisting to date. Previous interventions included physical therapy and facet injections, which did not provide relief. The lumbar spine MRI revealed degenerative disc changes at the L2-L3 level with endplate changes and moderate to severe bilateral neuroforaminal narrowing. Additionally, multilevel bilateral facet joint arthropathy was noted. The patient reports that the pain is localized primarily to the lower back, with no significant radiation to the legs or hips. The pain is exacerbated by certain positions, particularly prolonged sitting without support, and is alleviated by repositioning or using a cushion. The patient has a history of sacroiliac joint dysfunction, which was previously treated with injections providing temporary relief. However, the current pain is attributed to degenerative changes and nerve compression at the L2-L3 level. PRIOR: The patient is a 65-year-old male presenting with chronic low back pain. He was last seen in our office in 2021 and more recently was evaluated at [facility] last month. The pain has been persistent for several years, with initial onset prior to moving to [place] in 2016. He reports that previous interventions, including physical therapy one month ago and facet injections, provided no relief. The patient describes the pain as stabbing in nature, primarily affecting the lower back on the right side and exacerbated by sitting and bending and flexing forward. He notes that the pain subsides with walking and is not aggravated by bending backwards. He also has difficulty sleeping in certain positions and has to sleep in supine position due to significant increase in right sided low back pain with twisting and repositioning. In the past, a diagnostic injection in the sacroiliac joint provided temporary relief, suggesting some involvement of the joint. Today's evaluations suggest the pain may be discogenic. The patient has not undergone recent imaging, with the last x-ray performed approximately six to seven years ago. We will obtain lumbar spine MRI to further evaluate the condition. The patient manages his pain with ibuprofen and stretching exercises, avoiding excessive use of medications. He reports that cold therapy provides some relief, while lidocaine patches have been ineffective. - Onset: Persistent for several years, initially before moving to [place] in 2017 - Quality: Stabbing, throbbing, sharp, knife-like and shooting pain, tightness and spasming - Location: Lower back on the right side - Exacerbating factors: Sitting, bending forward, flexion, prolonged sitting, changing positions, twisting, heavy lifting - Relieving factors: Walking, leaning backwards, supine position - Radiation: Not specified - Interference: Pain increases with prolonged sitting and driving - Affect: Pain impacts daily activities, particularly sitting and driving - Analgesia: Uses ibuprofen and stretching exercises; cold therapy provides some relief - Adverse Effects: None reported from current pain management strategies - Activities of Daily Living: Pain interferes with sitting and driving, but walking alleviates symptoms - Aberrant Drug Related Behaviors: None reported Oswestry Low Back Pain Disability Score=22 PRIOR 11/03/21 Joanne Casas ARCHEOLOGIST CLASSICAL: Today's visit was conducted via telephone to discuss potential procedures as he had significant relief with a right diagnostic SIJ injection performed on 08/03/[address] Clark. PRIOR: Alberto returns today with an exacerbation is his pain. 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 He is scheduled for a diagnostic SIJ injection but wanted to discuss this flare in his symptoms. He reported trying some exercises indicated for SIJ pathology with improvement in his symptoms but reported sharply turning leading to an exacerbation in his pain. He is currently wearing a LSO with some improvements, given to him by a previous provider. PRIOR: Alberto is a pleasant 61 year old male who presents to the office, accompanied by his , with complaints of low back pain. He states his pain is mostly right sided without any associated symptoms. Denies any numbness, tingling, weakness or bowel/bladder dysfunction. He also reports muscle spasms across the low back which are moderately relieved with flexeril. He has also tried NSAIDS, tylenol as well as oxycodone with minimal effect in his discomfort. He was evaluated at [facility] and underwent right L4-L5 L5-S1 facet injections with exacerbation in his pain. He reports pain onset was gradual, constant and rates the pain a 6/10. He/ states the pain is interfering with sleep, activities of daily living and he cannot function normally. The patient reports the pain in terms of tissue damage as sharp, pinching, tugging as well as tingling and tight. His pain is exacerbated by forward flexion as well as repositioning while laying down and positioning transitions such as sitting to standing. Previously he has tried physical therapy as well as chiropractic manipulation with minimal improvement in his pain. He is currently doing home stretching which he learned through PT, but his symptoms are unchanged. Denies any previous lumbar surgery. Of note, he did have a right inguinal hernia repair performed in March 2021, but states this did not have any effect the symptoms he reports today. COUNT INCLUDES THE [facility] Medical History Hiatal hernia Overweight (BMI 25.0-29.9) Anxiety Erosive esophagitis Insomnia Lumbar degenerative disc disease Obstructive sleep apnea Acquired hypothyroidism Benign essential hypertension Thyroid disease HTN (hypertension) Dysphagia Surgical History Hx of arthroscopic knee surgery History of endoscopy S/P right inguinal hernia repair (04/19/21) Hx of endoscopy History of colonoscopy Family History Father Throat cancer Tongue cancer Mother Family history of high blood pressure Family history of Alzheimer's disease Social History Housing: Apartment Alcohol intake: current Alcohol intake frequency: a few times a month Patient Tobacco Use Status: Former Tobacco user Tobacco use type: Cigarette e-Cigarette/Vaping Use: Never Used Second Hand Smoke Exposure: Yes Substance Use Type: Marijuana service: No Current occupational status: employed Cognitive needs: No Hearing needs: No Vision needs: Yes Review of Systems Const All systems reviewed & are unremarkable except as noted in HPI and below Physical Exam Vital Signs: Last Vital Signs Pulse 64 08/04/25 14:38 BP 136/87 08/04/25 14:38 Pulse Ox 100 08/04/25 14:38 Oxygen Delivery Method Room Air 08/04/25 14:38 BMI result Body Mass Index 27.9 General: Appears afebrile. Alert and oriented. Mood and affect appropriate. Follows and participates in conversation appropriately. Respiratory effort is unlabored. No cough. Able to transition from sit to stand unassisted. Ambulates with bilaterally normal heel strike and toe off. General: Yes no CVA tenderness Back/Spine/Pelvis Other: Limited lumbar ROM due to pain. Demonstrates 5/5 strength of quadriceps bilaterally as well as flexion/dorsiflexion of bilateral feet against resistance . 2+ pedal pulses bilaterally. Straight leg rise with dorsiflexion positive on the right. +2 patellar and achilles reflexes bilaterally. Facet loading test positive bilaterally. Antonio?s, Gaenslen, Pelvic compression and Stinchfield tests are positive on the right. No groin pain with I/E hip rotations. Significant paraspinals tenderness mostly on the right lower back. Valsalva maneuver is negative. Back: no CVA tenderness Cervical Spine: cervical ROM normal, cervical muscular tenderness and No Cervical spine tenderness Thoracic/Lumbar Spine: thoracic and lumbar spine normal to inspection, No Thoracic/lumbar spine scar(s), Lasegue's sign negative, straight leg raise negative bilaterally, pain with thoraco-lumbar ROM, paraspinal muscle tenderness on the right greater than left, No thoraco-lumbar ROM limited, No thoracic spinal tenderness and lumbar spinal tenderness (L3-S1) Pelvis: buttock tenderness on the right Sacroiliac joints: on the right tender to palpation and on the left nontender Extrem General: Yes capillary refill normal, Yes no clubbing, cyanosis or edema and Yes no calf tenderness Results Reviewed Results Reviewed: MR LUMBAR SPINE WITHOUT CONTRAST 05/26/25 CLINICAL INFORMATION: Low back pain. FINDINGS: There is normal lumbar lordosis. The vertebral heights and alignment is normal. There is loss of L2-3 disc height. Rest of the disc heights are normal. The T12-L1, L1-2 disc level appears unremarkable. At L2-3 disc level there is a broad-based diffuse bulge/spondylosis complex without spinal canal stenosis. The new foramina are moderately narrowed bilaterally from moderate bilateral facet joint arthropathy. Right greater than left. At L3-4 disc level there is preserved disc signal and thickness. There is no significant disc bulge, herniation or spinal canal stenosis. The neural foramina are minimally narrowed from mild bilateral facet joint arthropathy. At L4-5 disc level there is preserved disc signal and thickness. There is mild diffuse bulge flattening the ventral thecal sac but without spinal canal stenosis. There is mild bilateral narrowing of neural foramina from facet joint hypertrophy. At L5-S1 disc level the thecal sac is capacious. The disc thickness and signal is normal. The neural foramina are mildly narrowed bilaterally from mild facet joint hypertrophy. Endplate changes at the L2 to-3 disc level. Rest of the bone marrow signal, intraspinal signal and paravertebral soft tissues are normal. IMPRESSION: Degenerative disc changes with endplate changes at L2-3 disc level. Minimal bulge/osteophyte complex with moderate to severe bilateral neural from narrowing. There is underlying bilateral facet joint arthropathy. No spinal canal stenosis seen. Assessment & Plan Assessment & Plan (1) Lumbar degenerative disc disease: Code(s): M51.36 - Other intervertebral disc degeneration, lumbar region Category: Medical (2) Sacroiliac joint pain: Code(s): M53.3 - Sacrococcygeal disorders, not elsewhere classified Category: Medical (3) Chronic low back pain: Code(s): M54.50 - Low back pain, unspecified; G89.29 - Other chronic pain Category: Medical (4) Lumbosacral spondylosis: Code(s): M47.817 - Spondylosis without myelopathy or radiculopathy, lumbosacral region Category: Medical (5) Vertebrogenic low back pain: Code(s): M54.51 - Vertebrogenic low back pain Category: Medical (6) Lumbar disc herniation: Code(s): M51.26 - Other intervertebral disc displacement, lumbar region Category: Medical Plan The plan includes scheduling a Right L2-L3 TFESI with local and fluoroscopy for persistent low back pain with discogenic and radicular symptoms. If the injection provides relief, further management will continue under pain management protocols. Should the injection not provide sufficient relief, a referral to a Neurosurgeon will be considered. The patient is advised to continue using ibuprofen for pain management and engage in stretching exercises to maintain mobility. Avoidance of movements that exacerbate pain is recommended, particularly in the workplace. All questions and concerns have been answered and patient agreed with the treatment plan. Follow up for and sooner as needed. Patient was informed and verbally consented to the use of an ambient scribe for clinic note documentation during this visit. Coding Level of Care Code Est Pt Level 4 (75185) Complex EM visit Add On G2211 Diagnoses Lumbar degenerative disc disease M51.36 Sacroiliac joint pain M53.3 Chronic low back pain M54.50; G89.29 Lumbosacral spondylosis M47.817 Vertebrogenic low back pain M54.51 Lumbar disc herniation M51.26
[2025-08-04 14:38] VITALS: BP 136/87; PULSE 64; O2SAT 100; BMI 27.9
--- OUTSIDE RECORDS SUMMARY | 2025-08-04 16:46 | XMS_ITS | Encounter Summary ---
Author Organization [employer] [facility] Address [address] [place] [id number] Care Team Providers Care Prototype Fabricator Name Role Phone Unavailable Primary Care Provider Unavailabl e Encounter Details Date Type Department Care Team (Late st Contact Info) Description 01/30/2023 Abstract [facility] Information Management [address] [place] [address] Mckenna Crocker MD [address] [place] [address] Social History Tobacco Use Types Packs/Day Years [...]
--- OUTSIDE RECORDS SUMMARY | 2025-08-04 16:46 | XMS_ITS | Clinical Summary ---
Author Organization [employer] [facility] Address [address] [place] [address] Care Team Providers Care Best Second Jobs Name Role Phone Unavailable Primary Care Provider [...]
== END 2025-08-04 14:54 | disposition home or self-care (01) ==
LOC: HO.PMC 14:27
PROVIDERS: PCP Internal Medicine; Visit Provider Nurse Practitioner Family
DX: M51.369 Other intervertebral disc degeneration, lumbar region without mention of lumbar back pain or lower extremity pain (principal); M53.3 Sacrococcygeal disorders, not elsewhere classified; M54.50 Low back pain, unspecified; G89.29 Other chronic pain; M47.817 Spondylosis without myelopathy or radiculopathy, lumbosacral region; M54.51 Vertebrogenic low back pain; M51.26 Other intervertebral disc displacement, lumbar region
CPT/HCPCS: 99214; G2211

== ENCOUNTER 2025-08-19 11:12 | Outpatient (AMB) | payer OTHER, SELFPAY ==
--- NOTE | 2025-08-19 11:24 | A.OFFVIS_ITS ---
Vital Signs 08/19/25 11:31 Height 5 ft 11 in Weight 203 lb 11.314 oz BMI 28.4 BP 124/80 Blood Pressure Location Lt brachial Position Sitting Pulse 70 Pulse Source Pulse Oximeter Pulse Oximetry (%) 98 Oxygen Delivery Method Room Air Intake Visit Reasons: joint pain Intake Note: New patient presents for joint pain. Patient c/o of joint pain all over body. Patient has had these symptom for over three years. Patient take Ibuprofen when needed. Allergies No Known Allergies Allergy (Verified 08/19/25 11:30) HPI Comments Details: Patient is a 65-year-old male with hypertension, anxiety, GERD complicated by erosive esophagitis, obstructive sleep apnea, acquired hypothyroidism and polyarticular osteoarthritis here today for the evaluation of polyarthralgias - The patient has a three-year history of progressively worsening joint pain, predominantly affecting the knees and lower back. - Severe osteoarthritis has been confirmed, with significant degeneration observed on imaging; prior meniscus repair has likely contributed to knee issues. - The patient's hypothyroidism was diagnosed following fatigue symptoms and is well-managed with long-term levothyroxine therapy. - The patient also suffers from obstructive sleep apnea, utilizing a BPAP machine for management. - There is a concern about further arthritis in other joints and a desire for assessment and pain management for existing symptoms. [facility] Medical History Hiatal hernia Overweight (BMI 25.0-29.9) Anxiety Erosive esophagitis Insomnia Lumbar degenerative disc disease Obstructive sleep apnea Acquired hypothyroidism Benign essential hypertension Thyroid disease HTN (hypertension) Dysphagia Surgical History Hx of arthroscopic knee surgery History of endoscopy S/P right inguinal hernia repair (04/19/21) Hx of endoscopy History of colonoscopy Family History Father Throat cancer Tongue cancer Mother Family history of high blood pressure Family history of Alzheimer's disease Social History Housing: Apartment Alcohol intake: current Alcohol intake frequency: a few times a month Patient Tobacco Use Status: Former Tobacco user Tobacco use type: Cigarette e-Cigarette/Vaping Use: Never Used Second Hand Smoke Exposure: Yes Substance Use Type: Marijuana service: No Current occupational status: employed Cognitive needs: No Hearing needs: No Vision needs: Yes Review of Systems Narrative Review of Systems - Musculoskeletal: Reports joint pain in knees and lower back. - Endocrine: Reports history of low thyroid function. - Neurological: Reports history of obstructive sleep apnea and resulting fatigue. - Respiratory: Reports use of BPAP machine for sleep apnea. Physical Exam Exam Exam: Vital signs reviewed Physical Examination CONSTITUITIONAL Patient alert and cooperative. Well appearing and in no apparent painful distress MSK Hands * Right Hand: Able to make a fist. No swelling or tenderness to palpation of the MCPs, PIPs or DIPs. * Left Hand: Able to make a fist. No swelling or tenderness to palpation of the MCPs, PIPs or DIPs. * Mild Herbedens nodes noted bilaterally Wrists * Right Wrist: Full ROM to flexion and extension. No swelling or TTP * Left Wrist: Full ROM to flexion and extension. No swelling or TTP Elbows * Right Elbow: Full ROM. No swelling or TTP. No TTP of the medial epicondyle. No TTP of the lateral epicondyle * Left Elbow: Full ROM. No swelling or TTP. No TTP of the medial epicondyle. No TTP of the lateral epicondyle Shoulders * Right shoulder: Full ROM. No swelling noted. No TTP of the AC joint. No TTP of the subacromial bursa. No TTP of the posterior shoulder * Left shoulder: Full ROM. No swelling noted. No TTP of the AC joint. No TTP of the subacromial bursa. No TTP of the posterior shoulder Knees * Right knee: Full ROM. No swelling noted. No TTP of the knee joint line. No TTP of pes anserine bursa * Left knee: Full ROM. No swelling noted. No TTP of the knee joint line. No TTP of pes anserine bursa. * Crepitations felt bilaterally Ankles * Right ankle: Good ankle dorsiflexion and plantar flexion. No swelling. No TTP of the ankle joint * Left ankle: Good ankle dorsiflexion and plantar flexion. No swelling. No TTP of the ankle joint Feet * Right foot: Negative squeeze test * Left foot: Negative squeeze test Tender points? * No tenderness to palpation of the bilateral trapezius, supraspinatus, anterior costochondral junctions, bilateral suboccipital muscle insertions SKIN No rashes Vital Signs: Last Vital Signs Pulse 70 08/19/25 11:31 BP 124/80 08/19/25 11:31 Pulse Ox 98 08/19/25 11:31 Oxygen Delivery Method Room Air 08/19/25 11:31 BMI result Body Mass Index 28.4 Results Reviewed Results Reviewed: XR Bilateral Knee 02/2022 FINDINGS: Right: No fracture, dislocation, destructive process, or definite effusion. Hoffa's fat pad appears normal. Normal bony mineralization. Moderate narrowing medial knee joint compartment is present with marginal osteophytes medial femoral condyle, medial tibial plateau, and small central osteophyte medial femoral condyle. No erosive change or chondrocalcinosis. Mild narrowing lateral patellofemoral joint. There is spurring at the quadriceps insertion patella. Left: Normal bony mineralization. No fracture or dislocation or destructive process. Mild narrowing medial compartment with borderline central osteophyte medial femoral condyle. No erosive change or chondrocalcinosis. IMPRESSION: Right: -Moderate narrowing medial knee joint compartment with mild osteophytes. No erosive change. -Narrowing lateral patellofemoral joint. Spurring quadriceps insertion patella. Left: -Mild narrowing medial compartment. No erosive change. MR L spine 02/2025 FINDINGS: There is normal lumbar lordosis. The vertebral heights and alignment is normal. There is loss of L2-3 disc height. Rest of the disc heights are normal. The T12-L1, L1-2 disc level appears unremarkable. At L2-3 disc level there is a broad-based diffuse bulge/spondylosis complex without spinal canal stenosis. The new foramina are moderately narrowed bilaterally from moderate bilateral facet joint arthropathy. Right greater than left. At L3-4 disc level there is preserved disc signal and thickness. There is no significant disc bulge, herniation or spinal canal stenosis. The neural foramina are minimally narrowed from mild bilateral facet joint arthropathy. At L4-5 disc level there is preserved disc signal and thickness. There is mild diffuse bulge flattening the ventral thecal sac but without spinal canal stenosis. There is mild bilateral narrowing of neural foramina from facet joint hypertrophy. At L5-S1 disc level the thecal sac is capacious. The disc thickness and signal is normal. The neural foramina are mildly narrowed bilaterally from mild facet joint hypertrophy. Endplate changes at the L2 to-3 disc level. Rest of the bone marrow signal, intraspinal signal and paravertebral soft tissues are normal. IMPRESSION: Degenerative disc changes with endplate changes at L2-3 disc level. Minimal bulge/osteophyte complex with moderate to severe bilateral neural from narrowing. There is underlying bilateral facet joint arthropathy. No spinal canal stenosis seen. Assessment & Plan Assessment & Plan (1) Polyarticular osteoarthritis: Code(s): M15.9 - Polyosteoarthritis, unspecified Plan: #Polyarticular OA Patient is a 65-year-old male here today for evaluation of polyarticular joint pain. Exam, history and imaging consistent with osteoarthritis. Management involves continuing pain relief strategies including injections and the exploration of surgical options if symptoms persist or worsen. Encourage [id number] exercise modalities such as aquatherapy Plan - Continue conservative management with pain management and ortho - No evidence of inflammatory arthritis - No need for further follow up with rheum Plan During our discussion, I explained to the patient that severe osteoarthritis is mechanical, dealing primarily with the wear and tear of cartilage over time. We discussed that there is no current treatment that can regenerate cartilage, but various conservative management strategies are helpful for symptom control. The patient understands that eventual surgical intervention, such as knee replacement, may be necessary. I recommended non-strenuous exercises such as aqua therapy and highlight the importance of continuing BPAP therapy for sleep apnea. Alternatives such as PRP or radiotherapy were discussed but were advised as not covered by insurance and lacking strong clinical evidence. We reaffirmed that thyroid management with levothyroxine should continue at the current dose, noting its stability over the years. I spent 45 minutes reviewing the record and labs, taking a history, examining the patient, discussing the treatment plan and documenting in the medical record Coding Level of Care Code New Pt Level 4 (17342) Diagnoses Polyarticular osteoarthritis M15.9
[2025-08-19 11:31] VITALS: BP 124/80; PULSE 70; O2SAT 98; BMI 28.4
--- OUTSIDE RECORDS SUMMARY | 2025-08-19 14:49 | XMS_ITS | Clinical Summary ---
Author Organization [employer] [facility] Address [address] [place] [address] Care Team Providers Care Food Order Expediter Name Role Phone Unavailable Primary Care Provider [...]
--- OUTSIDE RECORDS SUMMARY | 2025-08-19 14:49 | XMS_ITS | Encounter Summary ---
Author Organization [facility] Address [address] [place] [id number] Care Team Providers Care Assistant Store Manager Operations Name Role Phone Unavailable Primary Care Provider Unavailabl e Encounter Details Date Type Department Care Team (Late st Contact Info) Description 01/30/2023 Abstract [facility] Information Management [address] [place] [address] Mckenna Crocker MD [address] [place] [address] Social History Tobacco Use Types Packs/Day Years [...]
== END 2025-08-19 12:31 | disposition home or self-care (01) ==
LOC: HO.RHES 11:13
PROVIDERS: PCP Internal Medicine; Visit Provider Student in an Organized Health Care Education/Training Program
DX: M15.9 Polyosteoarthritis, unspecified (principal)
CPT/HCPCS: 99204